=== PATIENT | male | born 1940 | race Caucasian/White ===

== ENCOUNTER 2017-11-14 08:37 | Emergency (ER) | payer MEDICARE, SELFPAY ==
[2017-11-14] VITALS (9 sets, daily range): BP systolic 121–141; BP diastolic 79–93; PULSE 56–63; RESP 14–23; TEMP 36.8; O2SAT 98–100; BMI 24.3
--- NOTE | 2017-11-14 08:48 | DI.RAD.S_ITS ---
PROCEDURE: XR CHEST 1V INDICATIONS: CP TECHNIQUE: One view of the chest was acquired. COMPARISON: [facility], , CHEST 1 VIEW, 03/08/2015, 20:24. FINDINGS: Surgical changes and devices: Median sternotomy with CABG. Lungs and pleura: No pleural effusions or pneumothorax. There appears to be atelectasis in the left lower lobe surrounding the hiatal hernia. Mediastinum: Mediastinal contours appear normal. Heart size is normal. Moderate hiatal hernia. Bones and chest wall: No suspicious bony lesions. Overlying soft tissues appear unremarkable. IMPRESSION: 1. Moderate hiatal hernia. 2. Atelectasis/infiltrate in the left lower lobe medially, surrounding the hiatal hernia. 3. Interim postoperative changes. Dictated by: David Castillo M.D. on 11/14/2017 at 9:05 Approved by: David Castillo M.D. on 11/14/2017 at 9:07
--- NOTE | 2017-11-14 08:50 | ED.CHESTPAIN ---
HPI - Chest Pain General Chief Complaint: Chest Pain Stated Complaint: CHEST PAIN Time Seen by Provider: 11/14/17 08:44 Source: patient and family Mode of arrival: ambulatory Limitations: no limitations History of Present Illness HPI narrative: 77-year-old male with history of coronary artery disease status post CABG, factor 5 Leiden, DVT presents with 1 month of gradually worsening symptoms including chest pain and occasional dizziness. He denies any recent change in his medications. He spends most of the winter in [place]. He denies provocation or palliation of his symptoms and does admit to some radiation to his right chest. He is generally a rather poor historian given his diagnosis of dementia per the . MD complaint: chest pain Onset (ago): month(s) Duration: constant Pain location: substernal Quality: aching Pain radiation: RUE Relieving factors: nothing Exacerbating factors: nothing Treatments prior to arrival chest pain: none Related Data Home Medications Medication Instructions Recorded Confirmed Aspirin Low Dose 81 mg DAILY 11/14/17 11/14/17 Fish Oil 1,000 mg PO 11/14/17 Vitamin C 500 mg DAILY 11/14/17 11/14/17 buspirone 11/14/17 citalopram 11/14/17 metoprolol succinate 12.5 mg PO DAILY 11/14/17 11/14/17 olanzapine 11/14/17 warfarin 11/14/17 Previous Rx's Medication Instructions Recorded nitroglycerin 0.4 mg SL Q5M PRN #30 tab MDD 3 11/14/17 doses Review of Systems Review of Systems All systems reviewed & are unremarkable except as noted in HPI and below Constitutional Denies chills, Denies fever(s), Denies lethargy and Denies weakness Comments: Dizziness Eyes Denies change in vision, Denies eye discharge, Denies irritation and Denies loss of vision ENT Ears, Nose, Mouth, and Throat: Denies change in voice, Denies neck pain and Denies sore throat Cardiovascular Reports chest pain, Denies irregular heart rhythm, Reports lightheadedness, Denies palpitations, Denies dyspnea, Denies dyspnea on exertion and Denies orthopnea Respiratory Denies cough, Denies dyspnea, Denies dyspnea on exertion and Denies wheezing Gastrointestinal Gastrointestinal: Denies abdominal pain, Denies change in bowel habits, Denies diarrhea, Denies nausea and Denies vomiting Genitourinary Denies hematuria, Denies flank pain, Denies urinary incontinence and Denies urinary urgency Musculoskeletal Denies neck pain Integumentary/Breasts Denies pruritus, Denies erythema, Denies rash and Denies wounds Neurologic Denies confusion, Denies loss of vision and Denies weakness Psychiatric Denies anxiety, Denies confusion, Denies depression, Denies homicidal ideation and Denies suicidal ideation Endocrine Denies palpitations Hematologic/Lymphatic Denies easy bruising Allergic/Immunologic Denies wheezing [facility] Social History Smoking Status: Current every day smoker Exam Narrative Exam Narrative: Pleasant sleepy confused 77-year-old male in no obvious distress Initial Vital Signs Initial Vital Signs: Vital Signs Temperature 98.2 F 11/14/17 08:45 Pulse Rate 63 11/14/17 08:45 Respiratory Rate 20 11/14/17 08:45 Blood Pressure 124/79 H 11/14/17 08:45 Pulse Oximetry 98 11/14/17 08:45 Const General: cooperative and well developed Nutritional Appearance: well nourished Orientation: alert, awake and confused [facility] Head: normocephalic and atraumatic Ears: external ears normal and TM's normal bilaterally Nose: external nose normal and No nasal discharge Face and sinus: sinuses nontender, face symmetric, no sinus tenderness and No dry mucous membranes Mouth: oral mucosae normal and moist mucous membranes Teeth and gingiva: dentition normal Throat: tonsils normal and uvula midline Eyes General: appearance normal, both eyes and all related structures Eyelids: eyelids normal Conjunctivae: conjunctivae normal Sclera: sclerae normal Pupils: PERRL EOM: EOM intact bilaterally Neck Neck: normal visual inspection, trachea midline, No lymphadenopathy, No midline deformity and No JVD Lymphatic: No lymphedema Chest Chest: normal inspection of the chest Other: CABG scar is clean, dry and intact Resp Effort & Inspection: normal respiratory effort, able to speak in complete sentences, no respiratory distress and no use of accessory muscles Auscultation: clear to auscultation bilaterally, no rales, no rhonchi and no wheezes Cardio Rate: regular rate Rhythm: regular rhythm Heart Sounds: no click, no gallops, no murmurs and no rubs Pulses: normal peripheral pulses GI Inspection: non-distended Palpation: soft, no hepatosplenomegaly, No guarding, No pulsatile mass and No tender Auscultation: normal bowel sounds Back/Spine/Pelvis Back: No CVA tenderness Cervical Spine: cervical ROM normal and No pain with cervical ROM Thoracic/Lumbar Spine: thoracic and lumbar spine normal to inspection Skin General: no rashes or lesions noted, No jaundice and No petechiae Neuro General: alert, oriented x3, gait normal and no focal motor deficits Speech: speech normal Extrem General: full ROM, no clubbing, cyanosis or edema, no pedal edema and no calf tenderness Psych Appearance: well kempt Mental Status: mental status grossly normal Attitude: cooperative Thought Content: normal and suicidality Judgment: judgment good Course Orders Ordered: ED Orders 11/14/17 08:48 XR chest 1V Stat EKG-12 Lead Stat 11/14/17 08:55 Complete Blood Count AUTO DIFF Stat Comprehensive Metabolic Panel Stat Lipase Stat Prothrombin Time INR Stat Troponin with CK Cardiac Panel Stat 11/14/17 09:46 Urine Microscopic Stat 11/14/17 10:26 CT angio chest PE protocol Stat Discontinued Medications Aspirin (Aspirin Chew) 324 mg PO NOW ONE Stop: 11/14/17 08:49 Last Admin: 11/14/17 09:30 Dose: 324 mg Sodium Chloride (Normal Saline 0.9%) 1,000 mls @ 150 mls/hr IV CONT JOHN Last Infusion: 11/14/17 12:30 Dose: 0 mls/hr Admin: 11/14/17 09:31 Dose: 150 mls/hr Reevaluation(s) Reevaluation #1: Patient continues to be asymptomatic in the department Consultations Consultation #1: Called to on-call Cardiology at [facility]. They sure the opinion that this is unlikely to be chest pain of a cardiac etiology and recommend discharge home with follow-up as an outpatient. They make no medication or therapeutic recommendations Vital Signs - 8 hr 11/14/17 08:45 11/14/17 09:57 11/14/17 10:42 Temperature 98.2 F Pulse Rate 63 58 L 58 L Respiratory Rate 20 14 16 Blood Pressure 124/79 H Blood Pressure [Left Arm] 121/88 H 127/93 H Pulse Oximetry 98 99 99 11/14/17 11:00 11/14/17 11:30 11/14/17 12:00 Temperature Pulse Rate 58 L 56 L 62 Respiratory Rate 23 14 23 Blood Pressure Blood Pressure [Left Arm] 126/81 H 132/90 H 130/84 H Pulse Oximetry 100 99 98 11/14/17 12:05 11/14/17 12:41 11/14/17 12:42 Temperature Pulse Rate 60 62 61 Respiratory Rate 18 16 Blood Pressure Blood Pressure [Left Arm] 141/84 H 141/84 H Pulse Oximetry 98 100 100 MDM - Chest Pain Differential Diagnosis Likely stable angina, unstable angina pectoris, atypical chest pain, st elevation myocardial infarction, costochondritis, chest pain, biliary colic and other (PE, pleural effusion, pneumonia, dissection) Medical Records Data Attestation: I reviewed the patient's medical records. Lab Data Attestation: I reviewed the patient's lab results. Result diagrams: 11/14/17 08:55 11/14/17 08:55 Lab Results 11/14/17 11/14/17 11/14/17 Range/Units 08:55 08:55 08:55 WBC 6.4 (4.5-11.0) X10^3/uL RBC 4.31 L (4.5-5.9) X10^6/uL Hgb 14.4 (13.5-17.5) g/dL Hct 41.8 (41-53) % MCV 96.9 (80-100) fL MCH 33.3 (26-34) PG MCHC 34.4 (30-36) % RDW 13.8 (11.6-14.8) % Plt Count 183 (150-400) X10^3/uL Neut % (Auto) 70.7 (50-75) % Lymph % (Auto) 17.8 L (25-40) % [place] % (Auto) 9.2 (3-14) % Eos % (Auto) 1.7 L (2-4) % Baso % (Auto) 0.6 (0-2) % Neut # (Auto) 4500 (3795-2585) /uL PT 24.0 H (10.1-12.7) SECONDS INR 2.2 H (0.9-1.3) Sodium 144 (137-145) mmol/L Potassium 4.3 (3.4-5.1) mmol/L Chloride 110 H (98-107) mmol/L Carbon Dioxide 21 L (22-32) mmol/L BUN 24 H (9-20) mg/dL Creatinine 1.50 H (0.66-1.25) mg/dL Estimated GFR 45.4 L (>60) mL/min BUN/Creatinine Ratio 16.0 (6-22) Glucose 75 L (80-110) mg/dL Calcium 9.2 (8.4-10.2) mg/dL Total Bilirubin 0.8 (0.2-1.3) mg/dL AST 39 (17-59) IU/L ALT 36 (21-72) IU/L Alkaline Phosphatase 78 (38-126) U/L Total Creatine Kinase 225 H (55-170) U/L CK-MB (CK-2) 3.57 H (<2.37) ng/mL CK-MB (CK-2) Rel Index 1.6 (1.5-5.0) % Troponin I < 0.012 (0.01-0.034) ng/mL Total Protein 7.0 (6.3-8.2) g/dL Albumin 3.9 (3.5-5.0) g/dL Globulin 3.1 (1.7-4.1) g/dL Albumin/Globulin Ratio 1.3 (1.0-2.8) Lipase 232 (23-300) U/L Urine RBC (0-5/HPF) Urine WBC (0-5/HPF) Urine Bacteria (None) Ur Culture Indicated? Micro UA Comment 11/14/17 Range/Units 09:46 WBC (4.5-11.0) X10^3/uL RBC (4.5-5.9) X10^6/uL Hgb (13.5-17.5) g/dL Hct (41-53) % MCV (80-100) fL MCH (26-34) PG MCHC (30-36) % RDW (11.6-14.8) % Plt Count (150-400) X10^3/uL Neut % (Auto) (50-75) % Lymph % (Auto) (25-40) % [place] % (Auto) (3-14) % Eos % (Auto) (2-4) % Baso % (Auto) (0-2) % Neut # (Auto) (2472-7468) /uL PT (10.1-12.7) SECONDS INR (0.9-1.3) Sodium (137-145) mmol/L Potassium (3.4-5.1) mmol/L Chloride (98-107) mmol/L Carbon Dioxide (22-32) mmol/L BUN (9-20) mg/dL Creatinine (0.66-1.25) mg/dL Estimated GFR (>60) mL/min BUN/Creatinine Ratio (6-22) Glucose (80-110) mg/dL Calcium (8.4-10.2) mg/dL Total Bilirubin (0.2-1.3) mg/dL AST (17-59) IU/L ALT (21-72) IU/L Alkaline Phosphatase (38-126) U/L Total Creatine Kinase (55-170) U/L CK-MB (CK-2) (<2.37) ng/mL CK-MB (CK-2) Rel Index (1.5-5.0) % Troponin I (0.01-0.034) ng/mL Total Protein (6.3-8.2) g/dL Albumin (3.5-5.0) g/dL Globulin (1.7-4.1) g/dL Albumin/Globulin Ratio (1.0-2.8) Lipase (23-300) U/L Urine RBC 1-5/hpf (0-5/HPF) Urine WBC None seen (0-5/HPF) Urine Bacteria None seen (None) Ur Culture Indicated? Cult not indicated Micro UA Comment Not Reportable Discharge Plan Departure Patient Disposition: Home, Self-Care Clinical Impression: Atypical chest pain Discharge Date/Time: 11/14/17 12:54 Interventions: ED Discharge Assessment Last Done: 11/14/17 12:24 Instructions: DI for Atypical Chest Pain Activity Restrictions/Additional Instructions: *You have been diagnosed with [ noncardiac chest pain ] *What to do: * continue to Take medications as directed *Follow up with your lpc at [place] in 2-3 days, call for appointment *Return to ER if you should have any new, worsening or concerning symptoms Prescriptions: New nitroglycerin 0.4 mg tablet, sublingual 0.4 mg SL Q5M MDD 3 doses PRN (Reason: chest pain) Qty: 30 RF: 0 No Action olanzapine 10 mg tablet RF: 0 citalopram 20 mg tablet RF: 0 buspirone 10 mg tablet RF: 0 warfarin 5 mg tablet RF: 0 Aspirin Low Dose 81 mg DAILY RF: 0 metoprolol succinate 12.5 mg PO DAILY RF: 0 Fish Oil 1,000 mg PO RF: 0 Vitamin C 500 mg DAILY RF: 0
[2017-11-14 09:07] LABS: Add Manual Diff / Slide Review NO; Basophils Percent Auto 0.6 % (0-2); Eosinophils Percent Auto 1.7 % (2-4); Hematocrit 41.8 % (41-53); Hemoglobin 14.4 g/dL (13.5-17.5); Lymphocytes Percent Auto 17.8 % (25-40); Mean Corpuscular HGB Conc 34.4 % (30-36); Mean Corpuscular Hemoglobin 33.3 PG (26-34); Mean Corpuscular Volume 96.9 fL (80-100); Monocytes Percent Auto 9.2 % (3-14); Neutrophils Absolute Auto 4500 /uL (3000-5900); Neutrophils Percent Auto 70.7 % (50-75); Platelet Count 183 X10^3/uL (150-400); Red Blood Cell Count 4.31 X10^6/uL (4.5-5.9); Red Cell Distribution Width 13.8 % (11.6-14.8); White Blood Cell Count 6.4 X10^3/uL (4.5-11.0)
[2017-11-14 09:13] LABS: INR 2.2 (0.9-1.3)
[2017-11-14 09:18] LABS: Alanine Aminotransferase 36 IU/L (21-72); Albumin 3.9 g/dL (3.5-5.0); Albumin Globulin Ratio 1.3 (1.0-2.8); Alkaline Phosphatase 78 U/L (38-126); Aspartate Aminotransferase 39 IU/L (17-59); Bilirubin Total 0.8 mg/dL (0.2-1.3); Blood Urea Nitrogen 24 mg/dL (9-20); Calcium 9.2 mg/dL (8.4-10.2); Carbon Dioxide 21 mmol/L (22-32); Chloride 110 mmol/L (98-107); Creatine Kinase 225 U/L (55-170); Estimated Glomerular Filt Rate 45.4 mL/min (>60); Globulin 3.1 g/dL (1.7-4.1); Glucose 75 mg/dL (80-110); HEMOLYSIS 28 (0-50); Lipase 232 U/L (23-300); Potassium 4.3 mmol/L (3.4-5.1); Sodium 144 mmol/L (137-145)
[2017-11-14 09:29] LABS: Troponin I < 0.012 ng/mL (0.01-0.034)
[2017-11-14] MEDS: ASPIRIN 81 MG TAB 324 MG PO (09:30)
[2017-11-14] MEDS: SODIUM CHLORIDE 0.9% 1,000 ML 150 ML IV (09:31)
[2017-11-14 09:33] LABS: CKMB % Relative Index 1.6 % (1.5-5.0); Creatine Kinase MB 3.57 ng/mL (<2.37)
--- NOTE | 2017-11-14 10:26 | DI.CT.S_ITS ---
PROCEDURE: CT ANGIO CHEST PE PROTOCOL INDICATIONS: CP, SOB, hypoxia, hx DVT TECHNIQUE: After the administration of intravenous contrast, 2 mm thick sections acquired from the pulmonary apices to the posterior costophrenic angles. 3-dimensional maximum intensity projection (MIP) coronal and sagittal reformats were then acquired through the thorax. For radiation dose reduction, the following was used: automated exposure control, adjustment of mA and/or kV according to patient size. COMPARISON: [facility], CT, CT CHEST WO CON, 04/10/2015, 15:53. FINDINGS: Image quality: Excellent. Pulmonary arteries: Pulmonary arteries are normal in size, and demonstrate no intraluminal filling defects to suggest central pulmonary embolism. Lungs and pleura: Scattered scarring/atelectasis. There is a left upper lobe posterior calcified pleural plaque on image 12 series 5. No acute consolidation. No pleural effusions or pneumothorax. Central and peripheral airways are patent. Mediastinum: Heart size is enlarged, without pericardial effusion. Coronary artery calcifications. No mediastinal or hilar adenopathy. Thoracic aorta is normal in caliber and enhancement. Bones and chest wall: No suspicious bony lesions. Ribs and thoracic spine appear intact throughout. Thyroid gland negative. No axillary or supraclavicular adenopathy. Abdomen: Large hiatal hernia is seen. They're nonspecific partially visualized bilateral renal cysts and areas of possible cortical nephrocalcinosis IMPRESSION: No evidence of pulmonary embolism. No acute consolidation. Scattered scarring/atelectasis. 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 This is unchanged since 04/10/15 Large hiatal hernia, as before. Cardiomegaly and coronary artery disease. Dictated by: Masood Chen M.D. on 11/14/2017 at 10:46 Approved by: Masood Chen M.D. on 11/14/2017 at 10:56
[2017-11-14 11:28] LABS: Bacteria Urine None Seen; WBC Urine None Seen (0-5/HPF)
[2017-11-14 11:36] LABS: Culture Indicated Urine Cult Not Indicated; RBC Urine 1-5/HPF (0-5/HPF)
== END 2017-11-14 12:54 | disposition home or self-care (01) ==
PROVIDERS: Emergency Provider Emergency Medicine; Family Provider Internal Medicine; PCP Internal Medicine
DX: R07.89 Other chest pain (principal)
CPT/HCPCS: 36591; 71045; 71275; 80053; 81003; 81015; 82550; 82553; 83690; 84484; 85025; 85610; 93005; 93041; 96360; 96361; 99284; 99285; Q9967

== ENCOUNTER 2017-12-02 20:57 | Observation (INO) | payer MEDICARE, SELFPAY ==
[2017-12-02 21:00] VITALS: BP 93/67; PULSE 67; RESP 14; TEMP 36.5; O2SAT 95
--- NOTE | 2017-12-02 21:10 | DI.RAD.S_ITS ---
PROCEDURE: XR CHEST 1V INDICATIONS: syncope TECHNIQUE: One view of the chest was acquired. COMPARISON: [facility], CR, XR CHEST 1V, 11/14/2017, 8:56. FINDINGS: Surgical changes and devices: Median sternotomy Lungs and pleura: No pleural effusions or pneumothorax. Lungs are clear except for compressive atelectasis left lower lobe around the hernia.. Mediastinum: Mediastinal contours appear normal. Heart size is normal. Moderate hiatal hernia again noted. Bones and chest wall: No suspicious bony lesions. Overlying soft tissues appear unremarkable. IMPRESSION: 1. No acute cardiopulmonary abnormality. 2. Moderate hiatal hernia. 3. Stable compressive atelectasis left lower lobe. Dictated by: David Castillo M.D. on 12/03/2017 at 7:41 Approved by: David Castillo M.D. on 12/03/2017 at 7:43
--- NOTE | 2017-12-02 21:16 | ED_ITS ---
HPI - Syncope General Chief Complaint: GI Bleed Stated Complaint: Abd pain/Syncope Time Seen by Provider: 12/02/17 21:07 Source: EMS Mode of arrival: EMS Limitations: altered mental status History of Present Illness HPI narrative: The patient was transported here by [facility]. Prior to arrival, he had apparently developed abdominal pain for 2 hr. The family had decided to have him evaluated. After he walked to the car he collapsed in the back of the car. There was no fall, there is no concern for head injury. According to the paramedics, he was unconscious for about 3 min. Upon their initial evaluation is hypotensive, he has responded IV fluids, but blood pressure is still 90 systolic upon arrival. The patient has a degree of dementia, he is a poor historian. He has no complaints of headache, chest pain , abdominal pain and he has had no diarrhea. He has had no melena. He is anticoagulated with Coumadin for factor 5 Leiden deficiency and DVT. He also has a history of CAD. Related Data Home Medications Medication Instructions Recorded Confirmed buspirone 10 mg PO DAILY 11/14/17 12/03/17 citalopram 20 mg PO DAILY 11/14/17 12/03/17 olanzapine 11/14/17 warfarin 5 mg PO DAILY 11/14/17 12/03/17 ascorbic acid (vitamin C) [Vitamin 500 mg PO DAILY 12/03/17 12/03/17 C] aspirin 81 mg PO DAILY 12/03/17 12/03/17 metoprolol succinate 12.5 mg PO DAILY 12/03/17 12/03/17 omega 3-ywj-rjt-fish oil [Fish Oil] 1,000 mg PO DAILY 12/03/17 12/03/17 Previous Rx's Medication Instructions Recorded nitroglycerin 0.4 mg SL Q5M PRN #30 tab MDD 3 11/14/17 doses Allergies Allergy/AdvReac Type Severity Reaction Status Date / Time haloperidol AdvReac Agitated Verified 12/02/17 22:03 Review of Systems Review of Systems ROS is limited, information is primarily collected from the patient's . Constitutional Denies fatigue, Denies fever(s), Denies frequent falls, Denies poor appetite and Denies weakness Cardiovascular Denies chest pain and Denies dyspnea Respiratory Denies cough and Denies dyspnea Gastrointestinal Gastrointestinal: Reports as per HPI Neurologic Reports confusion (He has dementia), Denies frequent falls and Denies weakness Comments: ROS is otherwise unobtainable due to the patient's medical condition. Psychiatric Reports confusion (He has dementia) Endocrine Denies fatigue PFSH Medical History CAD (coronary artery disease) of artery bypass graft (Acute) DVT (deep venous thrombosis) (Acute) Dementia (Acute) Factor V Leiden (Acute) Surgical History Hx of CABG (Acute) Social History household members: spouse Smoking Status: Current every day smoker Exam Initial Vital Signs Initial Vital Signs: Vital Signs Temperature 97.7 F 12/02/17 21:00 Pulse Rate 67 12/02/17 21:00 Respiratory Rate 14 12/02/17 21:00 Blood Pressure 93/67 12/02/17 21:00 Pulse Oximetry 95 12/02/17 21:00 Const General: cooperative, comfortable, ill appearing and other (He does not respond to most questions.) Orientation: alert, awake and confused HENMO Head: normal to inspection, normocephalic and atraumatic Ears: external ears normal and TM's normal bilaterally Nose: external nose normal and No nasal discharge Face and sinus: sinuses nontender, face symmetric, no sinus tenderness and No dry mucous membranes Mouth: oral mucosae normal and moist mucous membranes Teeth and gingiva: dentition normal Throat: tonsils normal and uvula midline Eyes General: appearance normal, both eyes and all related structures Eyelids: eyelids normal Conjunctivae: conjunctivae normal Sclera: sclerae normal Pupils: PERRL EOM: EOM intact bilaterally Neck Neck: normal visual inspection, trachea midline, No lymphadenopathy, No midline deformity and No JVD Chest Chest: normal inspection of the chest Resp Effort & Inspection: normal respiratory effort, no respiratory distress and no use of accessory muscles Auscultation: clear to auscultation bilaterally, no rales, no rhonchi and no wheezes Cardio Rate: regular rate Rhythm: regular rhythm Heart Sounds: S1 normal, S2 normal, no click, no gallops, no murmurs and no rubs Pulses: normal peripheral pulses GI Inspection: non-distended Palpation: soft, no hepatosplenomegaly, No guarding, No pulsatile mass and No tender Auscultation: normal bowel sounds Rectal Exam: visual inspection normal, normal sphincter tone, prostate normal and heme positive stool Back/Spine/Pelvis Back: No CVA tenderness Skin General: no rashes or lesions noted Neuro General: alert Motor: muscle tone normal throughout Extrem General: normal to inspection, no pedal edema and no calf tenderness Course Hospital Course: The patient's blood pressure recovered to 1O8 systolic with IV hydration. His H /H dropped from 14/41 earlier this month to 12/37. His INR is 2.7. He was given Protonix and vitamin K. he does not have a substantial bleed, but he does have a slow GI bleed. He was admitted to Dr. Nettles, hospitalist. IV fluids will be continued. Labs will be evaluated tomorrow morning. Orders Ordered: ED Orders 12/02/17 21:10 XR chest 1V Stat EKG-12 Lead Stat 12/02/17 21:30 Complete Blood Count AUTO DIFF Stat Comprehensive Metabolic Panel Stat Ethanol (ETOH) Stat Lipase Stat Magnesium Stat Prothrombin Time INR Stat Troponin with CK Cardiac Panel Stat Type and Screen Stat 12/02/17 22:30 Urinalysis and Microscopic Stat 12/02/17 23:47 Complete Blood Count AUTO DIFF DAILY 12/02/17 23:49 Prothrombin Time INR DAILY Sodium Chloride (Normal Saline 0.9%) 1,000 mls @ 150 mls/hr IV CONT JOHN Last Infusion: 12/03/17 00:42 Dose: 150 mls/hr Admin: 12/02/17 22:48 Dose: 150 mls/hr Ondansetron HCl (Zofran) 4 mg IV Q4HR PRN PRN Reason: Nausea And Vomiting Pantoprazole Sodium (Protonix) 40 mg IV DAILY JOHN Discontinued Medications Sodium Chloride (Normal Saline 0.9%) 1,000 mls @ 1,000 mls/hr IV BOLUS ONE Stop: 12/02/17 22:09 Last Infusion: 12/02/17 22:49 Dose: 0 mls/hr Admin: 12/02/17 21:40 Dose: 1,000 mls/hr Phytonadione 10 mg/ Dextrose 51 mls @ 102 mls/hr IV NOW ONE Stop: 12/02/17 23:43 Last Infusion: 12/03/17 00:43 Dose: 102 mls/hr Admin: 12/03/17 00:23 Dose: 102 mls/hr Pantoprazole Sodium (Protonix) 40 mg IV NOW ONE Stop: 12/02/17 23:43 Last Admin: 12/03/17 00:01 Dose: 40 mg Vital Signs - 8 hr 12/02/17 21:00 12/02/17 21:17 12/02/17 21:54 Temperature 97.7 F Pulse Rate 67 58 L 62 Respiratory Rate 14 25 H 23 Blood Pressure 93/67 Blood Pressure [Left Arm] 93/67 85/64 L Pulse Oximetry 95 100 97 12/02/17 23:14 12/02/17 23:15 12/02/17 23:18 Temperature Pulse Rate 75 73 67 Respiratory Rate 23 Blood Pressure Blood Pressure [Left Arm] 117/82 H 107/78 108/77 Pulse Oximetry 99 12/03/17 00:44 12/03/17 00:45 Temperature 97.5 F L Pulse Rate 67 66 Respiratory Rate 23 20 Blood Pressure 100/79 116/71 Blood Pressure [Left Arm] Pulse Oximetry 97 98 MDM - Syncope Lab Data Result diagrams: 12/02/17 21:30 12/02/17 21:30 Lab Results 12/02/17 12/02/17 12/02/17 Range/Units 21:30 21:30 21:30 WBC 4.9 (4.5-11.0) X10^3/uL RBC 3.79 L (4.5-5.9) X10^6/uL Hgb 12.7 L (13.5-17.5) g/dL Hct 37.4 L (41-53) % MCV 98.6 (80-100) fL MCH 33.5 (26-34) PG MCHC 34.0 (30-36) % RDW 13.3 (11.6-14.8) % Plt Count 162 (150-400) X10^3/uL Neut % (Auto) 78.0 H (50-75) % Lymph % (Auto) 15.7 L (25-40) % [place] % (Auto) 4.7 (3-14) % Eos % (Auto) 1.1 L (2-4) % Baso % (Auto) 0.5 (0-2) % Neut # (Auto) 3800 (6664-2195) /uL PT 29.5 H (10.1-12.7) SECONDS INR 2.7 H (0.9-1.3) Sodium 138 (137-145) mmol/L Potassium 4.6 (3.4-5.1) mmol/L Chloride 110 H (98-107) mmol/L Carbon Dioxide 17 L (22-32) mmol/L BUN 25 H (9-20) mg/dL Creatinine 1.50 H (0.66-1.25) mg/dL Estimated GFR 45.4 L (>60) mL/min BUN/Creatinine Ratio 16.7 (6-22) Glucose 95 (80-110) mg/dL Calcium 8.2 L (8.4-10.2) mg/dL Magnesium (1.6-2.3) mg/dL Total Bilirubin 0.4 (0.2-1.3) mg/dL AST 29 (17-59) IU/L ALT 30 (21-72) IU/L Alkaline Phosphatase 58 (38-126) U/L Total Creatine Kinase 152 (55-170) U/L CK-MB (CK-2) 2.57 H (<2.37) ng/mL CK-MB (CK-2) Rel Index 1.7 (1.5-5.0) % Troponin I < 0.012 (0.01-0.034) ng/mL Total Protein 5.6 L (6.3-8.2) g/dL Albumin 3.0 L (3.5-5.0) g/dL Globulin 2.6 (1.7-4.1) g/dL Albumin/Globulin Ratio 1.2 (1.0-2.8) Lipase 117 (23-300) U/L Urine Color Urine Appearance Urine pH (4.5-8.0) Ur Specific [place] (1.000-1.035) Urine Protein (Negative) Urine Glucose (UA) (Normal) g/dL Urine Ketones (NEGATIVE) Urine Occult Blood (Negative) Urine Nitrate (Negative) Urine Bilirubin (NEGATIVE) Urine Urobilinogen (0.2) E.U./dL Ur Leukocyte Esterase (NEGATIVE) Urine RBC (0-5/HPF) Urine WBC (0-5/HPF) Ur Squamous Epith Cells Urine Bacteria (None) Ur Culture Indicated? Micro UA Comment Ethyl Alcohol mg/dL Blood Type Antibody Screen 12/02/17 12/02/17 12/02/17 Range/Units 21:30 21:30 22:30 WBC (4.5-11.0) X10^3/uL RBC (4.5-5.9) X10^6/uL Hgb (13.5-17.5) g/dL Hct (41-53) % MCV (80-100) fL MCH (26-34) PG MCHC (30-36) % RDW (11.6-14.8) % Plt Count (150-400) X10^3/uL Neut % (Auto) (50-75) % Lymph % (Auto) (25-40) % [place] % (Auto) (3-14) % Eos % (Auto) (2-4) % Baso % (Auto) (0-2) % Neut # (Auto) (5692-0552) /uL PT (10.1-12.7) SECONDS INR (0.9-1.3) Sodium (137-145) mmol/L Potassium (3.4-5.1) mmol/L Chloride (98-107) mmol/L Carbon Dioxide (22-32) mmol/L BUN (9-20) mg/dL Creatinine (0.66-1.25) mg/dL Estimated GFR (>60) mL/min BUN/Creatinine Ratio (6-22) Glucose (80-110) mg/dL Calcium (8.4-10.2) mg/dL Magnesium 2.0 (1.6-2.3) mg/dL Total Bilirubin (0.2-1.3) mg/dL AST (17-59) IU/L ALT (21-72) IU/L Alkaline Phosphatase (38-126) U/L Total Creatine Kinase (55-170) U/L CK-MB (CK-2) (<2.37) ng/mL CK-MB (CK-2) Rel Index (1.5-5.0) % Troponin I (0.01-0.034) ng/mL Total Protein (6.3-8.2) g/dL Albumin (3.5-5.0) g/dL Globulin (1.7-4.1) g/dL Albumin/Globulin Ratio (1.0-2.8) Lipase (23-300) U/L Urine Color Yellow Urine Appearance Clear Urine pH 5.0 (4.5-8.0) Ur Specific [place] 1.015 (1.000-1.035) Urine Protein Negative (Negative) Urine Glucose (UA) Negative (Normal) g/dL Urine Ketones Negative (NEGATIVE) Urine Occult Blood Trace-intact (Negative) Urine Nitrate Negative (Negative) Urine Bilirubin Negative (NEGATIVE) Urine Urobilinogen 0.2 (0.2) E.U./dL Ur Leukocyte Esterase Negative (NEGATIVE) Urine RBC None seen (0-5/HPF) Urine WBC None seen (0-5/HPF) Ur Squamous Epith Cells 0-1 /hpf Urine Bacteria None seen (None) Ur Culture Indicated? Cult not indicated Micro UA Comment Not Reportable Ethyl Alcohol 46 mg/dL Blood Type A Positive Antibody Screen Negative Imaging Data Chest x-ray: My impression: Prior CABG. No acute findings otherwise noted. ECG Data Attestation: I personally reviewed and interpreted this ECG as follows: Discharge Plan Departure Patient Disposition: Admitted as Observation Clinical Impression: Acute GI bleeding Discharge Date/Time: 12/03/17 00:46 Interventions: ED Discharge Assessment Last Done: 12/03/17 00:44 Admit Date/Time: 12/03/17 00:15 Admit Provider: Jaret Nettles
[2017-12-02 21:17] VITALS: BP 93/67; PULSE 58; RESP 25; O2SAT 100
[2017-12-02 21:39] LABS: Add Manual Diff / Slide Review NO; Basophils Percent Auto 0.5 % (0-2); Eosinophils Percent Auto 1.1 % (2-4); Hematocrit 37.4 % (41-53); Hemoglobin 12.7 g/dL (13.5-17.5); Lymphocytes Percent Auto 15.7 % (25-40); Mean Corpuscular Hemoglobin 33.5 PG (26-34); Mean Corpuscular Volume 98.6 fL (80-100); Monocytes Percent Auto 4.7 % (3-14); Neutrophils Absolute Auto 3800 /uL (3000-5900); Platelet Count 162 X10^3/uL (150-400); Red Blood Cell Count 3.79 X10^6/uL (4.5-5.9); Red Cell Distribution Width 13.3 % (11.6-14.8); White Blood Cell Count 4.9 X10^3/uL (4.5-11.0)
[2017-12-02] MEDS: SODIUM CHLORIDE 0.9% 1,000 ML 1000 ML IV (21:40)
[2017-12-02 21:46] LABS: INR 2.7 (0.9-1.3); Prothrombin Time 29.5 SECONDS (10.1-12.7)
[2017-12-02 21:51] LABS: Alanine Aminotransferase 30 IU/L (21-72); Albumin Globulin Ratio 1.2 (1.0-2.8); Alkaline Phosphatase 58 U/L (38-126); Aspartate Aminotransferase 29 IU/L (17-59); BUN Creatinine Ratio 16.7 (6-22); Bilirubin Total 0.4 mg/dL (0.2-1.3); Blood Urea Nitrogen 25 mg/dL (9-20); Calcium 8.2 mg/dL (8.4-10.2); Carbon Dioxide 17 mmol/L (22-32); Chloride 110 mmol/L (98-107); Creatine Kinase 152 U/L (55-170); Estimated Glomerular Filt Rate 45.4 mL/min (>60); Globulin 2.6 g/dL (1.7-4.1); Glucose 95 mg/dL (80-110); HEMOLYSIS 21 (0-50); Lipase 117 U/L (23-300); Potassium 4.6 mmol/L (3.4-5.1); Sodium 138 mmol/L (137-145); Total Protein 5.6 g/dL (6.3-8.2)
[2017-12-02 21:54] VITALS: BP 85/64; PULSE 62; RESP 23; O2SAT 97
[2017-12-02 21:55] LABS: Ethanol (ETOH) 46 mg/dL
[2017-12-02 22:03] LABS: Troponin I < 0.012 ng/mL (0.01-0.034)
[2017-12-02 22:06] LABS: CKMB % Relative Index 1.7 % (1.5-5.0); Creatine Kinase MB 2.57 ng/mL (<2.37)
[2017-12-02] MEDS: SODIUM CHLORIDE 0.9% 1,000 ML 150 ML IV (22:48)
[2017-12-02 23:02] LABS: Bacteria Urine None Seen; RBC Urine None Seen (0-5/HPF); WBC Urine None Seen (0-5/HPF)
[2017-12-02 23:03] LABS: Appearance Urine UA CLEAR; Bilirubin Urine UA NEGATIVE (NEGATIVE); Color Urine UA YELLOW; Glucose Urine UA NEGATIVE (Normal); Ketones Urine UA NEGATIVE (NEGATIVE); Leukocyte Esterase Urine UA NEGATIVE (NEGATIVE); Nitrite Urine UA Negative (Negative); Occult Blood Urine UA TRACE-INTACT (Negative); Protein Urine UA NEGATIVE (Negative); Specific Gravity Urine UA 1.015 (1.000-1.035); Urobilinogen Urine UA 0.2 E.U./dL (0.2)
[2017-12-02 23:13] LABS: Culture Indicated Urine Cult Not Indicated; Squamous Epithelial Cell Urine 0-1 /HPF
[2017-12-02 23:14] VITALS: BP 105/78; BP 117/82; PULSE 66; PULSE 75
[2017-12-02 23:15] VITALS: BP 107/78; PULSE 73
--- NOTE | 2017-12-02 23:15 | PC.NURSE ---
pt ambulated around nurses station and denied feeling dizzy
[2017-12-02 23:18] VITALS: BP 108/77; PULSE 67; RESP 23; O2SAT 99
[2017-12-03] MEDS: PANTOPRAZOLE 40 MG VIAL IV (00:01)
[2017-12-03] MEDS: PHYTONADIONE (VIT K1) 10 MG in DEXTROSE 5 % IN WATER 50 ML 102 ML IV (00:23)
[2017-12-03 00:44] VITALS: BP 100/79; PULSE 67; RESP 23; O2SAT 97
[2017-12-03 00:45] VITALS: BP 116/71; PULSE 66; RESP 20; TEMP 36.4; O2SAT 98
[2017-12-03 01:00] VITALS: BMI 27.6
--- NOTE | 2017-12-03 02:48 | PC.NURSE ---
Addendum entered by Parvin Ferrara R.N. 12/03/17 06:43: Pt was up all night and was trying to get out of bed. pt kept saying i gotta go, reoriented pt and explained the situation. NPO. pt had 2 small BMs w/ small tinge of blood. no blood clots visible. Original Note: Pt is A&O to self. He is confused. admission assessments and hx was difficult to obtain. Pt arrived at 0045 from ED in via wheelchair. vit K infusing. NS @150cc. tele. bed alarm on. call light in reach.
[2017-12-03] MEDS: SODIUM CHLORIDE 0.9% 1,000 ML 150 ML IV (04:49)
[2017-12-03 05:13] VITALS: BP 118/73; PULSE 79; RESP 20; TEMP 36.6; O2SAT 97
[2017-12-03 06:05] LABS: Add Manual Diff / Slide Review NO; Basophils Percent Auto 0.1 % (0-2); Hematocrit 39.1 % (41-53); Hemoglobin 13.2 g/dL (13.5-17.5); Lymphocytes Percent Auto 5.8 % (25-40); Mean Corpuscular HGB Conc 33.8 % (30-36); Mean Corpuscular Hemoglobin 33.5 PG (26-34); Monocytes Percent Auto 5.3 % (3-14); Neutrophils Absolute Auto 7200 /uL (3000-5900); Neutrophils Percent Auto 88.8 % (50-75); Platelet Count 144 X10^3/uL (150-400); Red Blood Cell Count 3.95 X10^6/uL (4.5-5.9); Red Cell Distribution Width 13.4 % (11.6-14.8); White Blood Cell Count 8.1 X10^3/uL (4.5-11.0)
[2017-12-03 06:21] LABS: INR 1.6 (0.9-1.3); Prothrombin Time 17.6 SECONDS (10.1-12.7)
--- NOTE | 2017-12-03 09:28 | PM.HP.1 ---
History of Present Illness Date Patient Seen: 12/03/17 Time Patient Seen: 09:54 Chief complaint: Acute GI Bleed Narrative: Patient is a 77-year-old male with history of alcohol dependence, severe dementia, warfarin anticoagulation for DVT, coronary artery disease brought to emergency department due to abdominal pain and syncope. Patient is unable to provide history himself due to dementia. His states that he was at the dinner table in developed severe abdominal pain. He got up and went to bed and was apparently writhing in pain. She was trying to get him into the car to take him to the emergency department and he passed out. She estimates he was out for about 3 min. He did not have nausea or vomiting or diarrhea. She reports he has at least 6-7 large beers a day. On ER exam he was noted to have brown heme-positive stool but no mariah blood in the stool. No history of peptic ulcer disease. Patient History Medical History Dementia (Acute) CAD (coronary artery disease) (Acute) Alcohol dependence (Acute) Tobacco dependence due to cigarettes (Acute) DVT (deep venous thrombosis) (Acute) Factor V Leiden (Acute) Surgical History Hx of CABG (Acute) Family & Social History Social History: household members spouse Safety & Behavioral: Feels Safe in Current Yes Environment Been Physically Hurt or No Threatened By a Person Suicidal Ideation Description None Suicide Plan Description No Plan Tobacco & Substance use: Smoking Status Current every day smoker alcohol intake frequency 0-2 drinks per day Substance Use Type does not use Meds Home Medications Medication Instructions Recorded Confirmed Type buspirone 10 mg PO DAILY 11/14/17 12/03/17 History citalopram 20 mg PO DAILY 11/14/17 12/03/17 History nitroglycerin 0.4 mg SL Q5M PRN #30 tab MDD 3 11/14/17 12/03/17 Rx doses olanzapine 11/14/17 History warfarin 5 mg PO DAILY 11/14/17 12/03/17 History ascorbic acid (vitamin C) [Vitamin 500 mg PO DAILY 12/03/17 12/03/17 History C] aspirin 81 mg PO DAILY 12/03/17 12/03/17 History metoprolol succinate 12.5 mg PO DAILY 12/03/17 12/03/17 History omega 8-vys-roz-fish oil [Fish Oil] 1,000 mg PO DAILY 12/03/17 12/03/17 History pantoprazole 40 mg PO DAILY #30 tab 12/03/17 Rx Allergies Allergy/AdvReac Type Severity Reaction Status Date / Time haloperidol AdvReac Agitated Verified 12/02/17 22:03 Review of Systems Review of Systems All systems reviewed & are unremarkable except as noted in HPI and below Exam Vital Signs (past 8 hours): - 12/03/17 05:13 Temperature 97.8 F Pulse Rate 79 Respiratory Rate 20 Blood Pressure 118/73 Pulse Oximetry 97 Oxygen Delivery Method Room Air Narrative Exam Narrative: GENERAL: This is an obviously very confused male who is standing and trying to leave the room. HEAD: Atraumatic. Normocephalic. EYES: Pupils equal, round and reactive. Extraocular motions intact. No scleral icterus. No injection or drainage. NECK: Trachea midline. No JVD or lymphadenopathy. CARDIOVASCULAR: Regular rate and rhythm without murmurs, gallops, or rubs. RESPIRATORY: Clear to auscultation bilaterally. GASTROINTESTINAL: Abdomen nondistended, soft, mild epigastric tenderness, no guarding, no abdominal mass EXTREMITIES: No edema. NEUROLOGICAL: Alert, slightly agitated, oriented to person only, nonfocal SKIN: warm, dry, no rash Objective Labs Result Diagrams: 12/03/17 05:16 12/02/17 21:30 Labs: EKG: Sinus rhythm and incomplete right bundle branch block, no acute changes Laboratory Results - last 24 hr 12/02/17 12/02/17 12/02/17 21:30 21:30 21:30 WBC 4.9 RBC 3.79 L Hgb 12.7 L Hct 37.4 L MCV 98.6 MCH 33.5 MCHC 34.0 RDW 13.3 Plt Count 162 Neut % (Auto) 78.0 H Lymph % (Auto) 15.7 L [place] % (Auto) 4.7 Eos % (Auto) 1.1 L Baso % (Auto) 0.5 Neut # (Auto) 3800 PT 29.5 H INR 2.7 H Sodium 138 Potassium 4.6 Chloride 110 H Carbon Dioxide 17 L BUN 25 H Creatinine 1.50 H Estimated GFR 45.4 L BUN/Creatinine Ratio 16.7 Glucose 95 Calcium 8.2 L Magnesium Total Bilirubin 0.4 AST 29 ALT 30 Alkaline Phosphatase 58 Total Creatine Kinase 152 CK-MB (CK-2) 2.57 H CK-MB (CK-2) Rel Index 1.7 Troponin I < 0.012 Total Protein 5.6 L Albumin 3.0 L Globulin 2.6 Albumin/Globulin Ratio 1.2 Lipase 117 Urine Color Urine Appearance Urine pH Ur Specific [place] Urine Protein Urine Glucose (UA) Urine Ketones Urine Occult Blood Urine Nitrate Urine Bilirubin Urine Urobilinogen Ur Leukocyte Esterase Urine RBC Urine WBC Ur Squamous Epith Cells Urine Bacteria Ur Culture Indicated? Micro UA Comment Ethyl Alcohol Blood Type Antibody Screen 12/02/17 12/02/17 12/02/17 21:30 21:30 22:30 WBC RBC Hgb Hct MCV MCH MCHC RDW Plt Count Neut % (Auto) Lymph % (Auto) [place] % (Auto) Eos % (Auto) Baso % (Auto) Neut # (Auto) PT INR Sodium Potassium Chloride Carbon Dioxide BUN Creatinine Estimated GFR BUN/Creatinine Ratio Glucose Calcium Magnesium 2.0 Total Bilirubin AST ALT Alkaline Phosphatase Total Creatine Kinase CK-MB (CK-2) CK-MB (CK-2) Rel Index Troponin I Total Protein Albumin Globulin Albumin/Globulin Ratio Lipase Urine Color Yellow Urine Appearance Clear Urine pH 5.0 Ur Specific [place] 1.015 Urine Protein Negative Urine Glucose (UA) Negative Urine Ketones Negative Urine Occult Blood Trace-intact Urine Nitrate Negative Urine Bilirubin Negative Urine Urobilinogen 0.2 Ur Leukocyte Esterase Negative Urine RBC None seen Urine WBC None seen Ur Squamous Epith Cells 0-1 /hpf Urine Bacteria None seen Ur Culture Indicated? Cult not indicated Micro UA Comment Not Reportable Ethyl Alcohol 46 Blood Type A Positive Antibody Screen Negative 12/03/17 12/03/17 05:16 05:16 WBC 8.1 D RBC 3.95 L Hgb 13.2 L Hct 39.1 L MCV 99.0 MCH 33.5 MCHC 33.8 RDW 13.4 Plt Count 144 L Neut % (Auto) 88.8 H Lymph % (Auto) 5.8 L [place] % (Auto) 5.3 Eos % (Auto) 0.0 L Baso % (Auto) 0.1 Neut # (Auto) 7200 H PT 17.6 H D INR 1.6 H Sodium Potassium Chloride Carbon Dioxide BUN Creatinine Estimated GFR BUN/Creatinine Ratio Glucose Calcium Magnesium Total Bilirubin AST ALT Alkaline Phosphatase Total Creatine Kinase CK-MB (CK-2) CK-MB (CK-2) Rel Index Troponin I Total Protein Albumin Globulin Albumin/Globulin Ratio Lipase Urine Color Urine Appearance Urine pH Ur Specific [place] Urine Protein Urine Glucose (UA) Urine Ketones Urine Occult Blood Urine Nitrate Urine Bilirubin Urine Urobilinogen Ur Leukocyte Esterase Urine RBC Urine WBC Ur Squamous Epith Cells Urine Bacteria Ur Culture Indicated? Micro UA Comment Ethyl Alcohol Blood Type Antibody Screen Assessment & Plan Plan: Assessment/Plan Narrative: 1. Acute abdominal pain. Patient has epigastric tenderness suggestive of gastritis or peptic ulcer disease. He has significant risk factors including excess alcohol use, cigarette dependence, daily aspirin and also on warfarin. Currently he is not complaining or appearing in pain. Due to his advanced dementia I am hesitant to put him under sedation for upper endoscopy. His is in agreement to treat him empirically with PPI therapy due to likelihood of gastritis or peptic ulcer disease. He is being discharged on Protonix 40 mg q.d.. He will follow up with Dr. Charly Queen his PCP 2. Vasovagal syncope. He passed out in setting of acute abdominal pain consistent with vasovagal event. His EKG, cardiac enzymes and telemetry are all reassuring. I do not think he needs further workup. 3. History of DVT and factor 5 Leiden. He had a DVT in May 2017 after a long car ride from [facility] [place] to [place]. I am not certain he still needs to remain on warfarin as this was his 1st DVT and was precipitated by relatively prolonged immobility. I suggested patient's talked to PCP regarding continuation of warfarin therapy. At this time he was kept on warfarin. 4. Coronary artery disease, status post CABG in 2014. Clinically stable. Also should consider whether to discontinue daily aspirin to reduce his risk of bleed. 5. Dementia with behavioral disturbance. 6. Alcohol and cigarette dependence. Suggested to spouse to try to have him at least cut down on his alcohol intake. 7. Heme-positive stool without acute blood loss. Daily Protonix started as above for presumed upper GI source. Patient admitted to observation and is stable to discharge home to follow up with PCP in the next week. Quality VTE Deep Vein Thrombosis/Pulmonary Embolism Present on Admission: No
--- NOTE | 2017-12-03 10:31 | PC.NURSE ---
1025 Pt dcd to home with care of spouse. Gave spouse dc information. Pt remains confused. Pt with spouse , escorted out ambulatory
--- NOTE | 2017-12-03 11:03 | CM.DANOTE ---
Discharge assessment: 77 year old male patient admitted to the emergency room for acute GI bleed. Patient alert and oriented, does have some mild dementia according to . Patient has medicare, and was admitted under observation. Plan: Patient is to be discharged home, no changes. is here, and will transport in her vehicle. Inquired with is she needed any services such as home health, and she stated that she did not feel that it is necessary. does care for , due to cognitive issues. Offered her handbook of senior services, should she elect to have some help in the home. Amber Barbosa RN/utility manager.
== END 2017-12-03 10:33 | disposition home or self-care (01) ==
LOC: ED 23:49 → AC 12-03 00:17
PROVIDERS: Admitting Provider Internal Medicine; Emergency Provider Emergency Medicine; Family Provider Internal Medicine; PCP Internal Medicine; Visit Provider Internal Medicine
DX: K92.2 Gastrointestinal hemorrhage, unspecified (principal); F03.90 Unspecified dementia, unspecified severity, without behavioral disturbance, psychotic disturbance, mood disturbance, and anxiety; Z79.01 Long term (current) use of anticoagulants; D68.51 Activated protein C resistance; I25.10 Atherosclerotic heart disease of native coronary artery without angina pectoris; R55 Syncope and collapse; I82.409 Acute embolism and thrombosis of unspecified deep veins of unspecified lower extremity; F17.210 Nicotine dependence, cigarettes, uncomplicated; E86.0 Dehydration; F10.20 Alcohol dependence, uncomplicated
CPT/HCPCS: 36415; 71045; 80053; 80320; 81001; 82550; 82553; 83690; 83735; 84484; 85025; 85610; 86850; 86900; 86901; 93005; 96360; 96361; 99285; G0378; C9113; J3430

== ENCOUNTER 2019-03-10 20:13 | Inpatient (IN) | payer MEDICARE, SELFPAY ==
[2019-03-10] VITALS (11 sets, daily range): BP systolic 79–129; BP diastolic 58–85; PULSE 66–88; RESP 10–18; TEMP 37.1; O2SAT 95–98; BMI 27.6
--- NOTE | 2019-03-10 20:17 | DI.CT.S_ITS ---
PROCEDURE: CT HEAD/BRAIN WO CON INDICATIONS: trauma TECHNIQUE: Noncontrast 4.5 mm thick angled axial sections acquired from the foramen magnum to the vertex, with coronal and sagittal reformats. For radiation dose reduction, the following was used: automated exposure control, adjustment of mA and/or kV according to patient size. COMPARISON: None. FINDINGS: Image quality: Excellent. CSF spaces: Basal cisterns are patent. No extra-axial fluid collections. The ventricles are symmetric in size and shape. Brain: No intracranial bleeds or masses. There is cerebral volume loss for age, with resultant ventricular and sulcal prominence. There are periventricular and deep white matter chronic small vessel ischemic changes. There is intracranial internal carotid artery atherosclerosis. Skull and face: Calvarium and visualized facial bones appear intact, without suspicious lesions. Sinuses: Visualized sinuses and mastoids are clear. IMPRESSION: No acute intracranial process. Dictated by: Masood Chen M.D. on 03/10/2019 at 20:37 Approved by: Masood Chen M.D. on 03/10/2019 at 20:40
--- NOTE | 2019-03-10 20:17 | DI.CT.S_ITS ---
PROCEDURE: CT CERVICAL SPINE WO CON INDICATIONS: trauma TECHNIQUE: Noncontrast 3 mm thick sections acquired from the skull base to the T4 level. Sagittal and coronal reformats were then constructed. For radiation dose reduction, the following was used: automated exposure control, adjustment of mA and/or kV according to patient size. COMPARISON: None. FINDINGS: Image quality: Excellent. Bones: No fractures or dislocations. Severe diffuse spondylosis and facet arthropathy. Visualized superior ribs are intact. Diffuse osteopenia Soft tissues: Prevertebral soft tissues are normal in thickness. No paravertebral hematomas. No apical pneumothoraces. Small left upper lobe calcified pleural plaque IMPRESSION: No fracture. Severe multilevel cervical spondylosis and facet arthropathy. Dictated by: Masood Chen M.D. on 03/10/2019 at 20:40 Approved by: Masood Chen M.D. on 03/10/2019 at 20:45
--- NOTE | 2019-03-10 20:23 | DI.RAD.S_ITS ---
PROCEDURE: XR CHEST 1V INDICATIONS: Fall. Decreased LOC. TECHNIQUE: One view of the chest was acquired. COMPARISON: [facility], CR, XR CHEST 1V, 12/02/2017, 21:17. FINDINGS: Surgical changes and devices: Sternotomy wires and CABG clips. Lungs and pleura: No acute consolidation. Scattered subsegmental atelectasis and/or scarring. No pleural effusion. No pneumothorax. Hiatal hernia as before Mediastinum: Mediastinal contours appear normal. Heart size is normal. Bones and chest wall: No suspicious bony lesions. Overlying soft tissues appear unremarkable. IMPRESSION: No acute disease. Dictated by: Masood Chen M.D. on 03/10/2019 at 20:54 Approved by: Masood Chen M.D. on 03/10/2019 at 20:55
--- NOTE | 2019-03-10 20:23 | ED.FALL ---
HPI - Fall General Chief Complaint: Trauma Stated Complaint: Head injury Time Seen by Provider: 03/10/19 20:22 Source: EMS Mode of arrival: EMS Limitations: altered mental status History of Present Illness HPI Narrative: The patient has dementia. He fell while walking to his house prior to arrival. The patient is not communicating. There is no obvious head injury, but there was initial complaints of neck pain. It is noted he is moving all extremities. He has had multiple falls recently, for in the past 3 days. He fell into a wall 2 days ago striking his head. There was no obvious LOC at that time. He is anticoagulated with Coumadin for a DVT. Upon arrival he has C-spine immobilization. He is breathing spontaneously with normal blood pressure and respiratory effort. He is not responding to questions and minimally responding noxious stimulation. He is a heavy alcohol drinker, last drinking 3 days ago. He has no known history of cirrhosis associated with the alcohol consumption. He has never had encephalopathy associated with the alcohol consumption, but his describes him as going downhill significantly over the past 4 days. In addition to the alcohol use, and dementia, she has the history had a Klebsiella UTI 2 years ago that required several days of hospitalization. The gentleman is given no history. He has indicated no complaints to his about urinary symptoms. His is not aware of fever, or respiratory illness. There has been no nausea vomiting. Related Data Home Medications Medication Instructions Recorded Confirmed buspirone 10 mg PO DAILY 11/14/17 12/03/17 citalopram 20 mg PO DAILY 11/14/17 12/03/17 olanzapine 10 mg PO DAILY 11/14/17 12/03/17 warfarin 5 mg PO DAILY 11/14/17 12/03/17 ascorbic acid (vitamin C) [Vitamin 500 mg PO DAILY 12/03/17 12/03/17 C] aspirin 81 mg PO DAILY 12/03/17 12/03/17 metoprolol succinate 12.5 mg PO DAILY 12/03/17 12/03/17 omega 3-pso-bmq-fish oil [Fish Oil] 1,000 mg PO DAILY 12/03/17 12/03/17 Previous Rx's Medication Instructions Recorded nitroglycerin 0.4 mg SL Q5M PRN #30 tab MDD 3 11/14/17 doses pantoprazole 40 mg PO DAILY #30 tab 06/27/18 Allergies Allergy/AdvReac Type Severity Reaction Status Date / Time No Known Drug Allergies Allergy Verified 03/10/19 21:09 Review of Systems Review of Systems ROS Unobtainable: Unobtainable due to medical condition Exam Initial Vital Signs Initial Vital Signs: Vital Signs Pulse Rate 88 03/10/19 20:35 Respiratory Rate 18 03/10/19 20:35 Blood Pressure 111/83 03/10/19 20:35 Pulse Oximetry 96 03/10/19 20:35 Const General: No in distress, ill appearing and other (Not verbally responsive.) Nutritional Appearance: cachectic Orientation: obtunded HENTX Head: normocephalic and atraumatic Ears: external ears normal and TM's normal bilaterally Nose: external nose normal and No nasal discharge Face and sinus: sinuses nontender and face symmetric Mouth: oral mucosae normal and moist mucous membranes Throat: tonsils normal and uvula midline Eyes Pupils: PERRL and pupil size on the right, on the left and bilaterally 4 Neck Other: No palpable deformities Chest Chest: normal inspection of the chest Resp Effort & Inspection: normal respiratory effort, able to speak in complete sentences, no respiratory distress and no use of accessory muscles Auscultation: clear to auscultation bilaterally, no rales, no rhonchi and no wheezes Cardio Rate: regular rate Rhythm: regular rhythm Heart Sounds: no click, no gallops, no murmurs and no rubs Pulses: normal peripheral pulses GI Inspection: non-distended Palpation: soft, no hepatosplenomegaly, No guarding, No pulsatile mass and No tender Auscultation: normal bowel sounds Back/Spine/Pelvis Back: normal to inspection, No ecchymosis, No erythema and No sacral edema Thoracic/Lumbar Spine: thoracic and lumbar spine normal to inspection Other: Abrasion over the sacrum. Skin General: no rashes or lesions noted, No jaundice and No petechiae Wounds: wounds noted (Abrasion over the sacrum) Neuro General: moves all extremities, no focal motor deficits and obtunded Extrem Other: Left wrist swelling, no obvious deformity. Normal range of motion all joints. Spontaneous motion in all extremities. [facility] Medical History Alcohol dependence (Acute) CAD (coronary artery disease) (Acute) Dementia (Acute) DVT (deep venous thrombosis) (Acute) Factor V Leiden (Acute) Tobacco dependence due to cigarettes (Acute) Surgical History Hx of CABG (Acute) Social History household members: spouse Smoking Status: Current every day smoker Social History household members: spouse Smoking Status: Current every day smoker Scores GCS Gurpreet coma scale eye opening: To pressure [place] coma scale verbal response: None [place] coma scale motor response: Localising Gurpreet coma scale total score: 8 Course Course Course Narrative: Workup has been extensive. Head and neck CT are negative. Chest x-ray is clear. There is no evidence of URI or respiratory infection. Abdomen is benign on palpation. There are no acute injuries to the abdomen, back or extremities. Labs indicate a urinary infection. The patient experienced a blood pressure drop, systolic pressure down to 78. He has been IV hydrated. He is blood pressure is normalized. A urinary infection was discovered. Blood cultures were obtained. IV Levaquin was ordered. The patient has attended with a history of dementia, and improving UTI. He will be admitted for ongoing care with IV fluids and antibiotics. His has informed me he has a DNR status. The case was discussed with hospitalist, ARIS Garza, the admitting provider. The patient's mental status is greatly diminished. He has dementia, he has multiple falls, he has a urinary infection. His head CT does not show an acute process. He has attended, but airway is intact. A discuss with hospitalist further evaluation tomorrow, and MRI should be considered due to his significant lack of neurologic response. Prior to her departure his reinforced the DNR plan. She separately mentioned DNI plans. Orders Ordered: ED Orders 03/10/19 20:17 CT cervical spine wo con Stat CT head/brain wo con Stat 03/10/19 20:23 XR chest 1V Stat EKG-12 Lead Stat 03/10/19 20:50 Complete Blood Count AUTO DIFF Stat Comprehensive Metabolic Panel Stat D Dimer Stat Ethanol (ETOH) Stat Lactate (Lactic Acid) Stat Partial Thromboplastin Time Stat Prothrombin Time INR Stat Troponin & CK Cardiac Panel Stat 03/10/19 21:12 XR wrist LT min 3V Stat 03/10/19 21:30 Ammonia (NH3) Stat 03/10/19 22:25 Urinalysis and Microscopic Stat Urine Culture Stat Urine Drug Screen, Rapid Stat 03/10/19 23:40 Blood Culture Stat Bisacodyl (Dulcolax) 10 mg AK DAILY PRN PRN Reason: Constipation Docusate Sodium (Colace) 100 mg PO BID PRN PRN Reason: Constipation Enoxaparin Sodium (Lovenox) 70 mg SUBCUT BID COUNT INCLUDES THE [facility] Last Admin: 03/11/19 02:32 Dose: 70 mg Documented by: ENEDELIA Sodium Chloride (Normal Saline 0.9%) 1,000 mls @ 100 mls/hr IV CONT COUNT INCLUDES THE [facility] Last Admin: 03/11/19 01:31 Dose: 100 mls/hr Documented by: ENEDELIA Levofloxacin (Levaquin) 250 mg in 50 mls @ 50 mls/hr IV Q24H COUNT INCLUDES THE [facility] Stop: 03/16/19 21:59 Naloxone HCl (Narcan) 0.2 mg IV Q2MIN PRN PRN Reason: Opiate Reversal Ondansetron HCl (Zofran) 4 mg IV Q8HR PRN PRN Reason: Nausea And Vomiting Discontinued Medications Heparin Sodium (Porcine) (Heparin) 5,000 unit SUBCUT BID COUNT INCLUDES THE [facility] Sodium Chloride (Normal Saline 0.9%) 1,000 mls @ 150 mls/hr IV CONT COUNT INCLUDES THE [facility] Last Infusion: 03/10/19 22:15 Dose: 0 mls/hr Documented by: Admin: 03/10/19 21:12 Dose: 1,000 mls/hr Documented by: RADHA Levofloxacin (Levaquin) 500 mg in 100 mls @ 100 mls/hr IV NOW ONE Stop: 03/11/19 00:19 Last Infusion: 03/11/19 01:04 Dose: 0 mls/hr Documented by: Infusion: 03/11/19 00:35 Dose: 100 mls/hr Documented by: Admin: 03/10/19 23:59 Dose: 100 mls/hr Documented by: THAIS Vital Signs Vital signs: Vital Signs - 8 hr 03/10/19 20:35 03/10/19 20:43 03/10/19 20:55 Temperature 98.7 F Pulse Rate 88 75 73 Respiratory Rate 18 16 12 Blood Pressure 111/83 Blood Pressure [Right Arm] 111/83 90/66 Pulse Oximetry 96 97 03/10/19 21:10 03/10/19 21:15 03/10/19 21:20 Temperature Pulse Rate 71 70 68 Respiratory Rate 14 12 13 Blood Pressure Blood Pressure [Right Arm] 79/58 L 80/61 L 87/65 L Pulse Oximetry 96 96 96 03/10/19 21:25 03/10/19 21:30 03/10/19 21:35 Temperature Pulse Rate 68 67 67 Respiratory Rate 12 12 12 Blood Pressure Blood Pressure [Right Arm] 90/68 101/77 106/81 Pulse Oximetry 95 96 03/10/19 21:45 03/10/19 22:00 Temperature Pulse Rate 68 68 Respiratory Rate 12 10 L Blood Pressure Blood Pressure [Right Arm] 117/81 129/85 Pulse Oximetry 96 98 fall Lab Data Result diagrams: 03/10/19 20:50 03/10/19 20:50 Labs: Lab Results 03/10/19 03/10/19 03/10/19 Range/Units 20:50 20:50 20:50 WBC 7.8 (4.5-11.0) X10^3/uL RBC 4.37 L (4.5-5.9) X10^6/uL Hgb 13.8 (13.5-17.5) g/dL Hct 40.9 L (41-53) % MCV 93.6 (80-100) fL MCH 31.7 (26-34) PG MCHC 33.9 (30-36) % RDW 13.4 (11.6-14.8) % Plt Count 178 (150-400) X10^3/uL Neut % (Auto) 83.9 H (50-75) % Lymph % (Auto) 9.0 L (25-40) % Dade % (Auto) 5.9 (3-14) % Eos % (Auto) 0.7 L (2-4) % Baso % (Auto) 0.5 (0-2) % Neut # (Auto) 6600 (2442-4399) /uL Lymph # (Auto) 700 L (8644-8534) /uL Dade # (Auto) 500 (0-900) /uL Eos # (Auto) 100 (0-450) /uL Baso # (Auto) 0 (0-100) /uL PT 12.1 (10.1-12.7) SECONDS INR 1.1 (0.9-1.3) APTT 31 (26.4-36.2) SECONDS D-Dimer (<230) ng/mL Sodium 140 (137-145) mmol/L Potassium 3.8 (3.4-5.1) mmol/L Chloride 107 (98-107) mmol/L Carbon Dioxide 23 (22-32) mmol/L BUN 30 H (9-20) mg/dL Creatinine 1.70 H (0.66-1.25) mg/dL Estimated GFR 39.2 L (>60) mL/min BUN/Creatinine Ratio 17.6 (6-22) Glucose 155 H (80-110) mg/dL Lactate (0.7-2.1) mmol/L Calcium 9.6 (8.4-10.2) mg/dL Total Bilirubin 0.6 (0.2-1.3) mg/dL AST 30 (17-59) IU/L ALT 19 L (21-72) IU/L Alkaline Phosphatase 85 (38-126) U/L Ammonia (9-30) umol/L Total Creatine Kinase (55-170) U/L CK-MB (CK-2) (<2.37) ng/mL CK-MB (CK-2) Rel Index (1.5-5.0) % Troponin I (0.01-0.034) ng/mL Total Protein 6.9 (6.3-8.2) g/dL Albumin 4.0 (3.5-5.0) g/dL Globulin 2.9 (1.7-4.1) g/dL Albumin/Globulin Ratio 1.4 (1.0-2.8) Prolactin (3.7-17.9) ng/mL Urine Color Urine Appearance Urine pH (4.5-8.0) Ur Specific [place] (1.000-1.035) Urine Protein (Negative) Urine Glucose (UA) (Negative) g/dL Urine Ketones (NEGATIVE) Urine Occult Blood (Negative) Urine Nitrate (Negative) Urine Bilirubin (NEGATIVE) Urine Urobilinogen (0.2) E.U./dL Ur Leukocyte Esterase (NEGATIVE) Urine RBC (0-5/HPF) Urine WBC (0-5/HPF) Urine Bacteria (None) Ur Culture Indicated? U Morph 300 ng/mL cutoff (Negative) Ur Oxycodone Screen (Negative) Urine Methadone Screen (Negative) Ur Barbiturates Screen (Negative) U Tricyclic Antidepress (Negative) Ur Phencyclidine Scrn (Negative) Ur Amphetamines Screen (Negative) U Methamphetamines Scrn (Negative) Ur MDMA Scrn (Ecstasy) (Negative) U Benzodiazepines Scrn (Negative) Urine Cocaine Screen (Negative) U Marijuana (THC) Screen (Negative) Ethyl Alcohol ( - 10) mg/dL 03/10/19 03/10/19 03/10/19 Range/Units 20:50 20:50 20:50 WBC (4.5-11.0) X10^3/uL RBC (4.5-5.9) X10^6/uL Hgb (13.5-17.5) g/dL Hct (41-53) % MCV (80-100) fL MCH (26-34) PG MCHC (30-36) % RDW (11.6-14.8) % Plt Count (150-400) X10^3/uL Neut % (Auto) (50-75) % Lymph % (Auto) (25-40) % Dade % (Auto) (3-14) % Eos % (Auto) (2-4) % Baso % (Auto) (0-2) % Neut # (Auto) (0120-1111) /uL Lymph # (Auto) (6809-2415) /uL Dade # (Auto) (0-900) /uL Eos # (Auto) (0-450) /uL Baso # (Auto) (0-100) /uL PT (10.1-12.7) SECONDS INR (0.9-1.3) APTT (26.4-36.2) SECONDS D-Dimer 496 H (<230) ng/mL Sodium (137-145) mmol/L Potassium (3.4-5.1) mmol/L Chloride (98-107) mmol/L Carbon Dioxide (22-32) mmol/L BUN (9-20) mg/dL Creatinine (0.66-1.25) mg/dL Estimated GFR (>60) mL/min BUN/Creatinine Ratio (6-22) Glucose (80-110) mg/dL Lactate (0.7-2.1) mmol/L Calcium (8.4-10.2) mg/dL Total Bilirubin (0.2-1.3) mg/dL AST (17-59) IU/L ALT (21-72) IU/L Alkaline Phosphatase (38-126) U/L Ammonia (9-30) umol/L Total Creatine Kinase 167 (55-170) U/L CK-MB (CK-2) 3.28 H (<2.37) ng/mL CK-MB (CK-2) Rel Index 2.0 (1.5-5.0) % Troponin I < 0.012 (0.01-0.034) ng/mL Total Protein (6.3-8.2) g/dL Albumin (3.5-5.0) g/dL Globulin (1.7-4.1) g/dL Albumin/Globulin Ratio (1.0-2.8) Prolactin (3.7-17.9) ng/mL Urine Color Urine Appearance Urine pH (4.5-8.0) Ur Specific [place] (1.000-1.035) Urine Protein (Negative) Urine Glucose (UA) (Negative) g/dL Urine Ketones (NEGATIVE) Urine Occult Blood (Negative) Urine Nitrate (Negative) Urine Bilirubin (NEGATIVE) Urine Urobilinogen (0.2) E.U./dL Ur Leukocyte Esterase (NEGATIVE) Urine RBC (0-5/HPF) Urine WBC (0-5/HPF) Urine Bacteria (None) Ur Culture Indicated? U Morph 300 ng/mL cutoff (Negative) Ur Oxycodone Screen (Negative) Urine Methadone Screen (Negative) Ur Barbiturates Screen (Negative) U Tricyclic Antidepress (Negative) Ur Phencyclidine Scrn (Negative) Ur Amphetamines Screen (Negative) U Methamphetamines Scrn (Negative) Ur MDMA Scrn (Ecstasy) (Negative) U Benzodiazepines Scrn (Negative) Urine Cocaine Screen (Negative) U Marijuana (THC) Screen (Negative) Ethyl Alcohol < 10 ( - 10) mg/dL 03/10/19 03/10/19 03/10/19 Range/Units 20:50 20:50 21:30 WBC (4.5-11.0) X10^3/uL RBC (4.5-5.9) X10^6/uL Hgb (13.5-17.5) g/dL Hct (41-53) % MCV (80-100) fL MCH (26-34) PG MCHC (30-36) % RDW (11.6-14.8) % Plt Count (150-400) X10^3/uL Neut % (Auto) (50-75) % Lymph % (Auto) (25-40) % Dade % (Auto) (3-14) % Eos % (Auto) (2-4) % Baso % (Auto) (0-2) % Neut # (Auto) (0170-5278) /uL Lymph # (Auto) (7441-7634) /uL Dade # (Auto) (0-900) /uL Eos # (Auto) (0-450) /uL Baso # (Auto) (0-100) /uL PT (10.1-12.7) SECONDS INR (0.9-1.3) APTT (26.4-36.2) SECONDS D-Dimer (<230) ng/mL Sodium (137-145) mmol/L Potassium (3.4-5.1) mmol/L Chloride (98-107) mmol/L Carbon Dioxide (22-32) mmol/L BUN (9-20) mg/dL Creatinine (0.66-1.25) mg/dL Estimated GFR (>60) mL/min BUN/Creatinine Ratio (6-22) Glucose (80-110) mg/dL Lactate 1.7 (0.7-2.1) mmol/L Calcium (8.4-10.2) mg/dL Total Bilirubin (0.2-1.3) mg/dL AST (17-59) IU/L ALT (21-72) IU/L Alkaline Phosphatase (38-126) U/L Ammonia < 9.0 L (9-30) umol/L Total Creatine Kinase (55-170) U/L CK-MB (CK-2) (<2.37) ng/mL CK-MB (CK-2) Rel Index (1.5-5.0) % Troponin I (0.01-0.034) ng/mL Total Protein (6.3-8.2) g/dL Albumin (3.5-5.0) g/dL Globulin (1.7-4.1) g/dL Albumin/Globulin Ratio (1.0-2.8) Prolactin 23.9 H (3.7-17.9) ng/mL Urine Color Urine Appearance Urine pH (4.5-8.0) Ur Specific [place] (1.000-1.035) Urine Protein (Negative) Urine Glucose (UA) (Negative) g/dL Urine Ketones (NEGATIVE) Urine Occult Blood (Negative) Urine Nitrate (Negative) Urine Bilirubin (NEGATIVE) Urine Urobilinogen (0.2) E.U./dL Ur Leukocyte Esterase (NEGATIVE) Urine RBC (0-5/HPF) Urine WBC (0-5/HPF) Urine Bacteria (None) Ur Culture Indicated? U Morph 300 ng/mL cutoff (Negative) Ur Oxycodone Screen (Negative) Urine Methadone Screen (Negative) Ur Barbiturates Screen (Negative) U Tricyclic Antidepress (Negative) Ur Phencyclidine Scrn (Negative) Ur Amphetamines Screen (Negative) U Methamphetamines Scrn (Negative) Ur MDMA Scrn (Ecstasy) (Negative) U Benzodiazepines Scrn (Negative) Urine Cocaine Screen (Negative) U Marijuana (THC) Screen (Negative) Ethyl Alcohol ( - 10) mg/dL 03/10/19 03/10/19 Range/Units 22:25 22:25 WBC (4.5-11.0) X10^3/uL RBC (4.5-5.9) X10^6/uL Hgb (13.5-17.5) g/dL Hct (41-53) % MCV (80-100) fL MCH (26-34) PG MCHC (30-36) % RDW (11.6-14.8) % Plt Count (150-400) X10^3/uL Neut % (Auto) (50-75) % Lymph % (Auto) (25-40) % [place]ade % (Auto) (3-14) % Eos % (Auto) (2-4) % Baso % (Auto) (0-2) % Neut # (Auto) (8143-5897) /uL Lymph # (Auto) (9309-1127) /uL Dade # (Auto) (0-900) /uL Eos # (Auto) (0-450) /uL Baso # (Auto) (0-100) /uL PT (10.1-12.7) SECONDS INR (0.9-1.3) APTT (26.4-36.2) SECONDS D-Dimer (<230) ng/mL Sodium (137-145) mmol/L Potassium (3.4-5.1) mmol/L Chloride (98-107) mmol/L Carbon Dioxide (22-32) mmol/L BUN (9-20) mg/dL Creatinine (0.66-1.25) mg/dL Estimated GFR (>60) mL/min BUN/Creatinine Ratio (6-22) Glucose (80-110) mg/dL Lactate (0.7-2.1) mmol/L Calcium (8.4-10.2) mg/dL Total Bilirubin (0.2-1.3) mg/dL AST (17-59) IU/L ALT (21-72) IU/L Alkaline Phosphatase (38-126) U/L Ammonia (9-30) umol/L Total Creatine Kinase (55-170) U/L CK-MB (CK-2) (<2.37) ng/mL CK-MB (CK-2) Rel Index (1.5-5.0) % Troponin I (0.01-0.034) ng/mL Total Protein (6.3-8.2) g/dL Albumin (3.5-5.0) g/dL Globulin (1.7-4.1) g/dL Albumin/Globulin Ratio (1.0-2.8) Prolactin (3.7-17.9) ng/mL Urine Color Yellow Urine Appearance Slightly cloudy Urine pH 5.0 (4.5-8.0) Ur Specific [place] 1.020 (1.000-1.035) Urine Protein 1+ H (Negative) Urine Glucose (UA) Negative (Negative) g/dL Urine Ketones Negative (NEGATIVE) Urine Occult Blood 1+ H (Negative) Urine Nitrate Negative (Negative) Urine Bilirubin Negative (NEGATIVE) Urine Urobilinogen 0.2 (0.2) E.U./dL Ur Leukocyte Esterase 1+ H (NEGATIVE) Urine RBC None seen (0-5/HPF) Urine WBC 10-30/hpf H (0-5/HPF) Urine Bacteria Few (2-10) H (None) Ur Culture Indicated? Specimen cultured U Morph 300 ng/mL cutoff Negative (Negative) Ur Oxycodone Screen Negative (Negative) Urine Methadone Screen Negative (Negative) Ur Barbiturates Screen Negative (Negative) U Tricyclic Antidepress Positive H (Negative) Ur Phencyclidine Scrn Negative (Negative) Ur Amphetamines Screen Negative (Negative) U Methamphetamines Scrn Negative (Negative) Ur MDMA Scrn (Ecstasy) Negative (Negative) U Benzodiazepines Scrn Negative (Negative) Urine Cocaine Screen Negative (Negative) U Marijuana (THC) Screen Negative (Negative) Ethyl Alcohol ( - 10) mg/dL Point of Care Testing Glucose POC [address]:: Radiologist's impression: No acute findings CT C-spine:: Radiologist's impression: No acute findings Chest x-ray: Radiologist's impression: No acute findings Left wrist x-ray:: Radiologist's impression: No fracture. Critical Care Time Critical Care Time Critical Care Time: Yes Total Critical Care Time: 45 Attestation: Care included interview with family and paramedics. Care included the physical evaluation, review of radiology, lab and EKG data, and multiple clinical decisions. Care of it reviewing a care plan with the patient's family. Care is completed with discussion with the admitting physician. Discharge Plan Departure Patient Disposition: Admitted As Inpatient Clinical Impression: Altered mental status Qualifiers: Altered mental status type: coma Coma depth: Gurpreet coma 3-8 Coma timing: at arrival to emergency department Qualified Code(s): R40.2432 - [place] coma scale score 3-8, at arrival to emergency department Dementia Qualifiers: Dementia type: unspecified type Dementia behavioral disturbance: without behavioral disturbance Qualified Code(s): F03.90 - Unspecified dementia without behavioral disturbance Urinary tract infection Qualifiers: Urinary tract infection type: site unspecified Hematuria presence: without hematuria Qualified Code(s): N39.0 - Urinary tract infection, site not specified Discharge Date/Time: 03/11/19 00:35 Admit Date/Time: 03/11/19 00:21 Admit Provider: Mike Garza
[2019-03-10 21:03] LABS: Add Manual Diff / Slide Review NO; Basophils Absolute Auto 0 /uL (0-100); Basophils Percent Auto 0.5 % (0-2); Eosinophils Absolute Auto 100 /uL (0-450); Eosinophils Percent Auto 0.7 % (2-4); Hematocrit 40.9 % (41-53); Hemoglobin 13.8 g/dL (13.5-17.5); Lymphocytes Absolute Auto 700 /uL (1100-4500); Mean Corpuscular HGB Conc 33.9 % (30-36); Mean Corpuscular Hemoglobin 31.7 PG (26-34); Mean Corpuscular Volume 93.6 fL (80-100); Monocytes Absolute Auto 500 /uL (0-900); Monocytes Percent Auto 5.9 % (3-14); Neutrophils Absolute Auto 6600 /uL (1500-7000); Neutrophils Percent Auto 83.9 % (50-75); Platelet Count 178 X10^3/uL (150-400); Red Blood Cell Count 4.37 X10^6/uL (4.5-5.9); Red Cell Distribution Width 13.4 % (11.6-14.8); White Blood Cell Count 7.8 X10^3/uL (4.5-11.0)
[2019-03-10 21:08] LABS: INR 1.1 (0.9-1.3); Prothrombin Time 12.1 SECONDS (10.1-12.7)
[2019-03-10 21:11] LABS: PTT Partial Thromboplastin Tim 31 SECONDS (26.4-36.2)
[2019-03-10] MEDS: SODIUM CHLORIDE 0.9% 1,000 ML 1000 ML IV (21:12)
--- NOTE | 2019-03-10 21:12 | DI.RAD.S_ITS ---
PROCEDURE: XR WRIST LT MIN 3V INDICATIONS: swollen, recent fall. TECHNIQUE: 4 views of the wrist were acquired. COMPARISON: None. FINDINGS: Bones: No fractures or dislocations. No suspicious bony lesions. 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 Diffuse interphalangeal and carpal joint degeneration Soft tissues: No suspicious soft tissue calcifications. Scattered vascular calcifications IMPRESSION: No fracture. If the patient's symptoms do not improve recommend followup radiographs in 10 days to assess for healing sclerosis/occult injury. Dictated by: Masood Chen M.D. on 03/10/2019 at 21:50 Approved by: Masood Chen M.D. on 03/10/2019 at 21:54
[2019-03-10 21:13] LABS: Alanine Aminotransferase 19 IU/L (21-72); Albumin Globulin Ratio 1.4 (1.0-2.8); Alkaline Phosphatase 85 U/L (38-126); Aspartate Aminotransferase 30 IU/L (17-59); BUN Creatinine Ratio 17.6 (6-22); Bilirubin Total 0.6 mg/dL (0.2-1.3); Blood Urea Nitrogen 30 mg/dL (9-20); Calcium 9.6 mg/dL (8.4-10.2); Carbon Dioxide 23 mmol/L (22-32); Chloride 107 mmol/L (98-107); Estimated Glomerular Filt Rate 39.2 mL/min (>60); Globulin 2.9 g/dL (1.7-4.1); Glucose 155 mg/dL (80-110); HEMOLYSIS < 15 (0-50); Potassium 3.8 mmol/L (3.4-5.1); Sodium 140 mmol/L (137-145); Total Protein 6.9 g/dL (6.3-8.2)
[2019-03-10 21:28] LABS: Ethanol (ETOH) < 10 mg/dL
[2019-03-10 21:31] LABS: D Dimer 496 ng/mL (<230)
[2019-03-10 21:34] LABS: Creatine Kinase 167 U/L (55-170); Lactate (Lactic Acid) 1.7 mmol/L (0.7-2.1)
[2019-03-10 21:45] LABS: Ammonia (NH3) < 9.0 umol/L (9-30)
[2019-03-10 21:47] LABS: Troponin I < 0.012 ng/mL (0.01-0.034)
[2019-03-10 21:51] LABS: Creatine Kinase MB 3.28 ng/mL (<2.37)
--- NOTE | 2019-03-10 22:16 | PC.NURSE ---
Late entry: Pt noted to by hypotensive @ 2055 w/ continued monitoring noted worsening hypotension. Dr. Chambers to bedside and ordered fluid be given as a bolus. Pt remained w/ poor responsiveness throughout. Pt bp improved w/ liter bolus. Family aware and agree w/ plan of care. .
[2019-03-10 22:38] LABS: RBC Urine None Seen (0-5/HPF)
[2019-03-10 22:41] LABS: Bilirubin Urine UA NEGATIVE (NEGATIVE); Color Urine UA YELLOW; Glucose Urine UA NEGATIVE (Negative); Ketones Urine UA NEGATIVE (NEGATIVE); Leukocyte Esterase Urine UA 1+ (NEGATIVE); Nitrite Urine UA NEGATIVE (Negative); Occult Blood Urine UA 1+ (Negative); Protein Urine UA 1+ (Negative); Urobilinogen Urine UA 0.2 E.U./dL (0.2)
[2019-03-10 22:43] LABS: Appearance Urine UA Slightly Cloudy
[2019-03-10 22:48] LABS: Ur Creatinine 50 (Normal); Ur Specific Gravity 1.025 (Normal)
[2019-03-10 22:49] LABS: UR Morphine/Opiate cutoff 300 Negative (Negative); Urine Amphetamines Negative (Negative); Urine Barbiturates Negative (Negative); Urine Benzodiazepines Negative (Negative); Urine Cocaine Negative (Negative); Urine MDMA Negative (Negative); Urine Methadone Negative (Negative); Urine Methamphetamines Negative (Negative); Urine Oxycodone Negative (Negative); Urine Phencyclidine Negative (Negative); Urine Tetrahydrocannabinol Negative (Negative); Urine Tricyclic Antidepressant Positive (Negative); Urine pH 5 (Normal)
[2019-03-10 23:17] LABS: Bacteria Urine Few (2-10); WBC Urine 10-30/HPF (0-5/HPF)
[2019-03-10 23:18] LABS: Culture Indicated Urine Specimen Cultured
[2019-03-10] MEDS: levoFLOXacin 500 MG/100 ML PIGGYBACK 100 MG IV (23:59)
[2019-03-11] VITALS (8 sets, daily range): BP systolic 117–165; BP diastolic 68–96; PULSE 62–84; RESP 15–18; TEMP 36.2–37.5; O2SAT 98–100; BMI 25.8
--- NOTE | 2019-03-11 00:01 | PC.NURSE ---
2330: report received from LEYDA Tran. Pt remains unresponsive to verbal stimuli. withdraw from pain but does not localize. protecting his airway. RR easy and unlabored. Somnolent. skin warm and dry, BP 120/75 HR 75 NSR with occasional PVC's. Abd SNT. Lungs clear. remains on cardiac monitoring. Lopez in place draining concentrated yellow urine. UA sent and + for leuks and blood. Levaquin infusing per EMR.
--- NOTE | 2019-03-11 00:39 | PM.HP.1 ---
History of Present Illness History of Present Illness Date Patient Seen: 03/11/19 Time Patient Seen: 00:20 Chief complaint: Head injury Narrative: Mr. Quinton Joe is a 78 year old male with a history significant for coronary artery disease status post CABG, hiatal hernia, factor V Leiden with history of DVT, dementia, alcohol and tobacco dependence who was brought into the ER by EMS with altered mental status post falls. The patient was walking into his house when he fell today. He has experienced 4 falls in the last 3 days. Per his the patient states he has been deteriorating rapidly over the last 4 days. Two days ago he fell and hit his head and has a history of being on warfarin for factor V Leiden and history of DVT. Upon arrival in the ER the patient is nonverbal, not responding to questions or commands with minimal response to noxious stimulus. He has a past history of heavy alcohol use but per family report has had none for the last 3 days. No seizure activity was noted by family or EMS personnel. He has had no vomiting. The patient is unable to provide subjective data due to altered mental status. In the ER the patient is found to be afebrile with temperature of 98.7?, heart rate of 75, blood pressure of 111/83 which dropped precipitously to 79/58 and following fluid resuscitation has returned to 129/85. Respirations are 16 and nonlabored with an oxygen saturation of 97% on room air. Due to the fall patient had a CT the next which found no fractures. He also had a CT of the head which shows no acute intracranial processes. A chest x-ray was taken which finds no acute cardio pulmonary pathology. His EKG shows sinus rhythm with a ventricular rate of 77, first-degree AV block and an incomplete right bundle branch block. On labs he has a normal white count at 7.8, hemoglobin and hematocrit of 13.8 and 40.9 and platelets of 178. Electrolytes are all within normal range. He has a BUN of 30 and elevated creatinine 1.7 and nonfasting glucose 155. His LFTs are within normal range and his ammonia is less than 9. Lactic acid is obtained at 1.7. On coagulation as a PT of 12.1 and INR 1.1 with a PTT of 31. His troponin is less than 0.012. Urinalysis is positive for protein, leukocyte esterase, WBCs, and bacteria and will be cultured. Blood cultures are drawn and the patient started on Levaquin 500 mg IV with a past history of a Klebsiella UTI. Patient History Medical History Alcohol dependence (Acute) CAD (coronary artery disease) (Acute) Dementia (Acute) DVT (deep venous thrombosis) (Acute) Factor V Leiden (Acute) Tobacco dependence due to cigarettes (Acute) Surgical History Hx of CABG (Acute) Social History household members: spouse Smoking Status: Current every day smoker Family & Social History Family history unavailable: No (No family is present at bedside, the patient is) Social History: household members spouse Safety & Behavioral: Feels Safe in Current Unwilling to Answer Environment Been Physically Hurt or Unwilling to Answer Threatened By a Person Tobacco & Substance use: Smoking Status Current every day smoker alcohol intake frequency 0-2 drinks per day Substance Use Type does not use Comment: The patient is and lives at home with his . No family or social history is available in the absence of family and the patient comatose. Smoking: History of daily smoking Alcohol: Daily drinker but none for 3 days. Substance use: Per family report the patient does not use herbal or cannabis products. Advanced directives: There is no previous record of advanced directives, the family has departed. Dr. Chambers discussed code status with the family noting in his report: ?His has informed me he has a DNR status. Meds Home Medications and Allergies Home Medications Medication Instructions Recorded Confirmed Type buspirone 10 mg PO DAILY 11/14/17 12/03/17 History citalopram 20 mg PO DAILY 11/14/17 12/03/17 History nitroglycerin 0.4 mg SL Q5M PRN #30 tab MDD 3 11/14/17 12/03/17 Rx doses olanzapine 10 mg PO DAILY 11/14/17 12/03/17 History warfarin 5 mg PO DAILY 11/14/17 12/03/17 History ascorbic acid (vitamin C) [Vitamin 500 mg PO DAILY 12/03/17 12/03/17 History C] aspirin 81 mg PO DAILY 12/03/17 12/03/17 History metoprolol succinate 12.5 mg PO DAILY 12/03/17 12/03/17 History omega 6-okd-var-fish oil [Fish Oil] 1,000 mg PO DAILY 12/03/17 12/03/17 History pantoprazole 40 mg PO DAILY #30 tab 12/03/17 Rx Allergies Allergy/AdvReac Type Severity Reaction Status Date / Time No Known Drug Allergies Allergy Verified 03/10/19 21:09 Review of Systems Review of Systems ROS Unobtainable: unobtainable due to mental status (Patient is comatose with GCS of 7.) Exam Vital Signs (past 8 hours): - 03/10/19 20:35 03/10/19 20:43 03/10/19 20:55 Temperature 98.7 F Pulse Rate 88 75 73 Respiratory Rate 18 16 12 Blood Pressure 111/83 Blood Pressure [Right Arm] 111/83 90/66 Pulse Oximetry 96 97 03/10/19 21:10 03/10/19 21:15 03/10/19 21:20 Temperature Pulse Rate 71 70 68 Respiratory Rate 14 12 13 Blood Pressure Blood Pressure [Right Arm] 79/58 L 80/61 L 87/65 L Pulse Oximetry 96 96 96 03/10/19 21:25 03/10/19 21:30 03/10/19 21:35 Temperature Pulse Rate 68 67 67 Respiratory Rate 12 12 12 Blood Pressure Blood Pressure [Right Arm] 90/68 101/77 106/81 Pulse Oximetry 95 96 03/10/19 21:45 03/10/19 22:00 03/11/19 00:32 Temperature Pulse Rate 68 68 70 Respiratory Rate 12 10 L 16 Blood Pressure 117/71 Blood Pressure [Right Arm] 117/81 129/85 Pulse Oximetry 96 98 98 Oxygen Delivery Method Room Air Narrative Exam Narrative: GENERAL APPEARANCE: well developed, unresponsive male in no acute distress. HEENT: Normocephalic, PERRLA, sclera anicteric, conjunctiva clear, EOMs intact without nystagmus, no sinus tenderness to percussion, no rhinorrhea, mucous membranes are moist and pink without lesions or exudate. NECK/THYROID: neck supple, no JVD, no thyromegaly, trachea midline. LYMPH NODES: no cervical or supraclavicular lymphadenopathy. SKIN: warm and dry, no suspicious lesions, no rashes, ulcerations or petechiae. HEART: regular rate and rhythm, S1-S2, no murmur, no rubs or gallops, 2+ dorsalis pedis pulses, no edema LUNGS: Scattered faint crackles without coarseness or wheezing, no cough present CHEST: Symmetrical movement, shallow respirations, no accessory muscle use ABDOMEN: Soft, no distention, dipping to percussion bilateral upper quadrants, no grimace or guarding on deep palpation, no organomegaly, active bowel tones. BACK: Nontender EXTREMITIES: Flexion of arms with noxious stimulation NEUROLOGIC: Patient is unconscious, GCS 7, responsive to noxious stimulus with arm movement inconsistent response with occasional moan. Will not follow commands, 1+ bilateral biceps reflexes positive Babinski, some movement with occulocephalic reflex. PSYCH: Unconscious Objective Labs Result Diagrams: 03/10/19 20:50 03/10/19 20:50 Labs: Laboratory Results - last 24 hr 03/10/19 03/10/19 03/10/19 20:50 20:50 20:50 WBC 7.8 RBC 4.37 L Hgb 13.8 Hct 40.9 L MCV 93.6 MCH 31.7 MCHC 33.9 RDW 13.4 Plt Count 178 Neut % (Auto) 83.9 H Lymph % (Auto) 9.0 L [place] % (Auto) 5.9 Eos % (Auto) 0.7 L Baso % (Auto) 0.5 Neut # (Auto) 6600 Lymph # (Auto) 700 L [place] # (Auto) 500 Eos # (Auto) 100 Baso # (Auto) 0 PT 12.1 INR 1.1 APTT 31 D-Dimer Sodium 140 Potassium 3.8 Chloride 107 Carbon Dioxide 23 BUN 30 H Creatinine 1.70 H Estimated GFR 39.2 L BUN/Creatinine Ratio 17.6 Glucose 155 H Lactate Calcium 9.6 Total Bilirubin 0.6 AST 30 ALT 19 L Alkaline Phosphatase 85 Ammonia Total Creatine Kinase CK-MB (CK-2) CK-MB (CK-2) Rel Index Troponin I Total Protein 6.9 Albumin 4.0 Globulin 2.9 Albumin/Globulin Ratio 1.4 Urine Color Urine Appearance Urine pH Ur Specific [place] Urine Protein Urine Glucose (UA) Urine Ketones Urine Occult Blood Urine Nitrate Urine Bilirubin Urine Urobilinogen Ur Leukocyte Esterase Urine RBC Urine WBC Urine Bacteria Ur Culture Indicated? U Morph 300 ng/mL cutoff Ur Oxycodone Screen Urine Methadone Screen Ur Barbiturates Screen U Tricyclic Antidepress Ur Phencyclidine Scrn Ur Amphetamines Screen U Methamphetamines Scrn Ur MDMA Scrn (Ecstasy) U Benzodiazepines Scrn Urine Cocaine Screen U Marijuana (THC) Screen Ethyl Alcohol 03/10/19 03/10/19 03/10/19 20:50 20:50 20:50 WBC RBC Hgb Hct MCV MCH MCHC RDW Plt Count Neut % (Auto) Lymph % (Auto) [place] % (Auto) Eos % (Auto) Baso % (Auto) Neut # (Auto) Lymph # (Auto) [place] # (Auto) Eos # (Auto) Baso # (Auto) PT INR APTT D-Dimer 496 H Sodium Potassium Chloride Carbon Dioxide BUN Creatinine Estimated GFR BUN/Creatinine Ratio Glucose Lactate Calcium Total Bilirubin AST ALT Alkaline Phosphatase Ammonia Total Creatine Kinase 167 CK-MB (CK-2) 3.28 H CK-MB (CK-2) Rel Index 2.0 Troponin I < 0.012 Total Protein Albumin Globulin Albumin/Globulin Ratio Urine Color Urine Appearance Urine pH Ur Specific [place] Urine Protein Urine Glucose (UA) Urine Ketones Urine Occult Blood Urine Nitrate Urine Bilirubin Urine Urobilinogen Ur Leukocyte Esterase Urine RBC Urine WBC Urine Bacteria Ur Culture Indicated? U Morph 300 ng/mL cutoff Ur Oxycodone Screen Urine Methadone Screen Ur Barbiturates Screen U Tricyclic Antidepress Ur Phencyclidine Scrn Ur Amphetamines Screen U Methamphetamines Scrn Ur MDMA Scrn (Ecstasy) U Benzodiazepines Scrn Urine Cocaine Screen U Marijuana (THC) Screen Ethyl Alcohol < 10 03/10/19 03/10/19 03/10/19 20:50 21:30 22:25 WBC RBC Hgb Hct MCV MCH MCHC RDW Plt Count Neut % (Auto) Lymph % (Auto) [place] % (Auto) Eos % (Auto) Baso % (Auto) Neut # (Auto) Lymph # (Auto) [place] # (Auto) Eos # (Auto) Baso # (Auto) PT INR APTT D-Dimer Sodium Potassium Chloride Carbon Dioxide BUN Creatinine Estimated GFR BUN/Creatinine Ratio Glucose Lactate 1.7 Calcium Total Bilirubin AST ALT Alkaline Phosphatase Ammonia < 9.0 L Total Creatine Kinase CK-MB (CK-2) CK-MB (CK-2) Rel Index Troponin I Total Protein Albumin Globulin Albumin/Globulin Ratio Urine Color Yellow Urine Appearance Slightly cloudy Urine pH 5.0 Ur Specific [place] 1.020 Urine Protein 1+ H Urine Glucose (UA) Negative Urine Ketones Negative Urine Occult Blood 1+ H Urine Nitrate Negative Urine Bilirubin Negative Urine Urobilinogen 0.2 Ur Leukocyte Esterase 1+ H Urine RBC None seen Urine WBC 10-30/hpf H Urine Bacteria Few (2-10) H Ur Culture Indicated? Specimen cultured U Morph 300 ng/mL cutoff Ur Oxycodone Screen Urine Methadone Screen Ur Barbiturates Screen U Tricyclic Antidepress Ur Phencyclidine Scrn Ur Amphetamines Screen U Methamphetamines Scrn Ur MDMA Scrn (Ecstasy) U Benzodiazepines Scrn Urine Cocaine Screen U Marijuana (THC) Screen Ethyl Alcohol 03/10/19 22:25 WBC RBC Hgb Hct MCV MCH MCHC RDW Plt Count Neut % (Auto) Lymph % (Auto) [place] % (Auto) Eos % (Auto) Baso % (Auto) Neut # (Auto) Lymph # (Auto) [place] # (Auto) Eos # (Auto) Baso # (Auto) PT INR APTT D-Dimer Sodium Potassium Chloride Carbon Dioxide BUN Creatinine Estimated GFR BUN/Creatinine Ratio Glucose Lactate Calcium Total Bilirubin AST ALT Alkaline Phosphatase Ammonia Total Creatine Kinase CK-MB (CK-2) CK-MB (CK-2) Rel Index Troponin I Total Protein Albumin Globulin Albumin/Globulin Ratio Urine Color Urine Appearance Urine pH Ur Specific [place] Urine Protein Urine Glucose (UA) Urine Ketones Urine Occult Blood Urine Nitrate Urine Bilirubin Urine Urobilinogen Ur Leukocyte Esterase Urine RBC Urine WBC Urine Bacteria Ur Culture Indicated? U Morph 300 ng/mL cutoff Negative Ur Oxycodone Screen Negative Urine Methadone Screen Negative Ur Barbiturates Screen Negative U Tricyclic Antidepress Positive H Ur Phencyclidine Scrn Negative Ur Amphetamines Screen Negative U Methamphetamines Scrn Negative Ur MDMA Scrn (Ecstasy) Negative U Benzodiazepines Scrn Negative Urine Cocaine Screen Negative U Marijuana (THC) Screen Negative Ethyl Alcohol Assessment & Plan Assessment & Plan narrative: This is a 70-year-old male patient who per family report has been deteriorating for the last 4 days with increasing falls. His most recent fall was today walking into the house. The patient has been nonverbal unresponsive while in the ER. No subjective history is available to augment decision making. Per the patient's the patient is DNR DNI with limited interventions. 1. Urinary tract infection, acute, present on admission, active. -Lopez catheter placed to obtain urine sample and related to comatose state. -urinary tract infections dental fight on urinalysis with positive blood, leukocyte esterase, WBCs and bacteria. -patient has had a prior urinary tract infection with Klebsiella 2 years ago -patient started on Levaquin 500 mg IV in the emergency department, will continue Levaquin 250 mg IV daily due to renal status. 2. Altered mental status, acute on chronic, present on admission, active -differential diagnosis includes: -closed head injury-history of multiple falls on Coumadin however his INR on admission is 1.1. CT of the head is negative for intercranial pathology. -acute metabolic encephalopathy-patient has urinary tract infection be treated as above -advanced dementia-head CT finds cerebral atrophy for age with chronic microvascular vascular changes. -CVA-patient has had increasing falls, acutely unresponsive post last fall, no facial droop or report of ataxia CT of the head is negative, will obtain MRI in the morning. Will be unable to obtain MR with contrast related to renal function. 3. Alcohol dependence, chronic, active. -current ETOH level is less than 10 with reports patient having no alcoholic beverages for the last 3 days. -no reports of tremors or seizure activity. Patient presentation is inconsistent with withdrawal syndrome. -will monitor the patient for withdrawal symptoms. 4. Coronary artery disease, chronic, stable -review of serial 12 lead EKGs the patient has remained in sinus Renaldo to sinus rhythm with first-degree AV block with incomplete right bundle. -the patient has reported no chest pain or difficulty breathing to his . -patient with hypotensive episode in the emergency department resolved with fluid resuscitation -patient is on telemetry. 5. Factor V [place] mutation, chronic, active -patient is to be taking warfarin 5 mg daily, INR is 1.1. -the patient has elevated D-dimer at 496 in the setting of multiple falls. -ordered enoxaparin 1 milligram/kilogram twice daily -will need to confirm medication regimen with the family as well as patient adherence to medication use. The patient is admitted to the hospital due to the severity of his symptoms and risk for complications adverse events. The patient is admitted as an inpatient with expected length of stay to be greater than 2 midnights. Time Spent With Patient Time with patient: 25 - 35 minutes Scores GCS [place] coma scale eye opening: None [place] coma scale verbal response: Sounds Gur[place]reet coma scale motor response: Normal flexion [place] coma scale total score: 7
[2019-03-11] MEDS: SODIUM CHLORIDE 0.9% 1,000 ML 100 ML IV ×2 (01:31→12:13)
[2019-03-11 02:03] LABS: Prolactin 23.9 ng/mL (3.7-17.9)
--- NOTE | 2019-03-11 02:29 | DI.MRI.S_ITS ---
PROCEDURE: MR HEAD/BRAIN WO CON INDICATIONS: AMS, R/O CVA TECHNIQUE: Non-contrast axial T1 spin echo, axial T2 fast spin echo, sagittal and axial FLAIR, coronal T2 fast spin echo, axial gradient echo, axial diffusion and ADC through the brain. COMPARISON: [facility], CT, CT HEAD/BRAIN WO CON, 03/10/2019, 20:22. FINDINGS: Image quality: This examination is limited by involuntary motion artifact. CSF spaces: Ventricles appear symmetric in size and shape. Basal cisterns are patent. No extra-axial fluid collections. Brain: No intracranial bleeds or mass effects. There is cerebral volume loss for age. There are periventricular and deep white matter chronic small vessel ischemic changes. Brainstem appears normal. Diffusion-weighted images show no acute ischemic insults. No chronic ischemic insults. Normal intravascular flow voids are present. Skull and face: Calvarial bone marrow is normal in signal. Orbits are normal. Sinuses: Sinuses and mastoids are clear. IMPRESSION: Limited study demonstrating no findings of acute or subacute infarction. Note is made of age-appropriate brain parenchymal volume loss and chronic small vessel ischemic changes. Dictated by: Demond Vang M.D. on 03/11/2019 at 11:57 Approved by: Demond Vang M.D. on 03/11/2019 at 11:58
[2019-03-11] MEDS: ENOXAPARIN 80 MG/0.8 ML SYRINGE 70 MG SUBCUT ×2 (02:32→21:24)
--- NOTE | 2019-03-11 04:03 | PC.NURSE ---
Pt admitted at 0030 from ED. Admitted nonreponsive to painful stimuli, touch. Dolls eyes at admit. Pt post fall with head strike at home, on warfarin fro DVT and hx of Factor 5 Leiden. Gave first dose of enoxaparin per order Head CT negative for bleed. Pt with slightly deformed left wrist in ED, xray negative for fracture. Pt lst used ETOH 3 days ago/heavy drinker, current smoker. No family accompanying pt to floor, admit assessment not yet complete, await until family available to provide further info. [facility] emergency contact info. Pt with dx dementia and profound owing per ED report, UTI found on admit, on Levofloxin IV. Prolactin level elevated, suspect pt had seizure, on seizure precautions. Aspiration precautions. At around 0330 pt awoke, answering appropriate birthday, name, following some commands. Pt making constant attmepts to get OOB, Not redirectable. Provider notified. CIWA protocol initiated. On tele in NSR, with 1st degree AV block and RBB. Lopez patent for urinary retention. maintain bed alarm
[2019-03-11] MEDS: LORazepam 2 MG/ML INJ IV ×4 (05:11→19:27)
[2019-03-11 07:11] LABS: Add Manual Diff / Slide Review NO; Basophils Absolute Auto 0 /uL (0-100); Basophils Percent Auto 0.3 % (0-2); Eosinophils Absolute Auto 100 /uL (0-450); Eosinophils Percent Auto 1.6 % (2-4); Hematocrit 36.9 % (41-53); Hemoglobin 12.7 g/dL (13.5-17.5); Lymphocytes Absolute Auto 1200 /uL (1100-4500); Lymphocytes Percent Auto 15.3 % (25-40); Mean Corpuscular HGB Conc 34.3 % (30-36); Mean Corpuscular Hemoglobin 31.8 PG (26-34); Mean Corpuscular Volume 92.7 fL (80-100); Monocytes Absolute Auto 700 /uL (0-900); Monocytes Percent Auto 9.6 % (3-14); Neutrophils Absolute Auto 5600 /uL (1500-7000); Neutrophils Percent Auto 73.2 % (50-75); Platelet Count 170 X10^3/uL (150-400); Red Blood Cell Count 3.98 X10^6/uL (4.5-5.9); Red Cell Distribution Width 13.7 % (11.6-14.8); White Blood Cell Count 7.7 X10^3/uL (4.5-11.0)
[2019-03-11 07:18] LABS: Blood Urea Nitrogen 24 mg/dL (9-20); Calcium 8.9 mg/dL (8.4-10.2); Carbon Dioxide 21 mmol/L (22-32); Chloride 112 mmol/L (98-107); Estimated Glomerular Filt Rate 45.3 mL/min (>60); Glucose 76 mg/dL (80-110); HEMOLYSIS < 15 (0-50); Potassium 3.9 mmol/L (3.4-5.1); Sodium 141 mmol/L (137-145)
--- NOTE | 2019-03-11 09:01 | PC.NURSE ---
Addendum entered by Reymundo Combs CNA 03/11/19 09:04: instead of abnormal breathing its apneic breathing. Original Note: Pt. is sleeping and breathing slow, has an abnormal breathing pattern O2 @ 96% and cont. puls OX on left index
--- NOTE | 2019-03-11 10:38 | CM.DANOTE ---
Addendum entered by Amber Barbosa R.N. 03/11/19 16:09: Met with Abbie, patient's , daughter, Anabelle, was also present. stated, her is a retired vetrinarian, and used to take care of the large animals on farms on [facility]. She mentioned that her 's dementia had gotten worse after cardiac surgery. She stated, he's not normally like this, that fall took a lot out of him. She had also mentioned, my really doesn't have an alcohol problem, he had between 3-6 beers a day, and I took it away from him about 3 days ago. denies that has gone through any withdrawals. Went over Medicare choice list, she understands that patient would need to be here until the , due to meeting Medicare criteria. She is leaning towards [facility], since they have private rooms. Will continue to follow and be in touch with regarding patient's condition. He continues to be restless at times. Original Note: DCP: Case received, EMR reviewed and spoke with patient's , Abbie, over phone. Confirmed her phone number, is: [phone]. Introduced self and role. Was able to obtain baseline activity level of patient at home, as well as other health history information from her. DCP template/assessment, completed with information currently available. Patient is a 78 year old male who admitted early this morning to the care of the hospitalist team. PCP: Dr. Queen. Payer: confirmed: Medicare/[employer]. Patient was brought to the emergency room via ambulance secondary to a fall that occurred at home. According to recent note, patient has had a few falls within the fast few days. He resides in [place] with his , who is Abbie. Patient has history of dementia, as well as acute use of alcohol. Patient is here on CIWA protocol, and sleeping, for he was given Ativan for agitation. This case mgr had attempted to reach with numbers on face sheet. Her home number, no longer in use. Verified her number, after nurse, Suki, was able to contact, of [phone]. goes by the name, Abbie. was able to give information to this associate merchandise planner regarding patient, over the phone. Patient has had a few falls at home lately. stated, he usually does this when he ends up with an infection. Asked her about the severity of his dementia, as far as any concerns, such as elopement. stated, he has not gotten lost, he usually walks about 2 miles, then returns home. Abbie confirmed that he does not use any DME supplies. She verbally stated that she is patient's POA. Noticed someone by the name of Anabelle on face sheet. stated that Anabelle is their daughter, is disabled, and lives with them. She mentioned that she has another daughter, Amber, who lives next door. Discussed patient's alcohol use with . stated that he has been drinking, but she took the alcohol away from him a couple of days ago. He mentioned that her and her daughter had gotten into an argument, for her daughter stated that a little alcohol wouldn't hurt him. has been looking into memory care facilities for patient. She stated, she can't afford 6-7000.00 a month, but is looking into home place, [place], for she knows the chiropractic practice manager. He is on a waiting list. Discussed potential for half-way, once patient is stable. He is confirmed inpatient per Scott, in [place]. feels that skilled would be a good idea. Discussed preferences, stated, what ever is the closest. She does know that this will depend on his medical and behavioral stability. She will come by later today, and this case mgr can provide her with Medicare choice list. At this time, patient will be having an MRI. He had been getting 1:1 sitter prior to this morning, secondary to agitation. P: DCP to continue to follow closely, and will attempt to meet with later. Amber Barbosa RN/Scraper Operator
--- NOTE | 2019-03-11 17:04 | PM.EVENT ---
Event Note Date Patient Seen: 03/11/19 Event Note: The Patient is a 78 y/o male with a history of dementia, DVT/Factor V leiden on coumadin, frequent falls, etoh dependence who was admitted for falls. The patient became agitated last night requiring ativan. He was sedated this morning and recieved more ativan for his MRI. The patient is currently sedated, minimally arousable and unable to provide any further history. By report the patient has been drinking for some time. He has had gait disturbance before admission. He was sleeping most of the day prior to admission which is unusual for him. The patient had a CT of the head which was negative, MRI of the brain which was negative. Given his drinking history their is concern for cerebellar ataxia wernicke's, korsakoff's as well. Patient will be started on a banana bag, IV fluids with glucose and continue the CIWA protocol. He will need to be evaluated by PT/OT when awake and coherent.
[2019-03-11] MEDS: DEXTROSE 5%-0.9% NS 1,000 ML 100 ML IV (17:54)
[2019-03-11] MEDS: MAGNESIUM SULFATE 2 GM, FOLIC ACID 1 MG, THIAMINE 100 MG, MULTIVITAMIN 10 ML in SODIUM ... IV (17:55)
[2019-03-11] MEDS: levoFLOXacin 250 MG/50 ML PIGGYBACK 50 MG IV (21:25)
[2019-03-12] VITALS (8 sets, daily range): BP systolic 126–144; BP diastolic 84–101; PULSE 70–107; RESP 16–20; TEMP 36.3–37.4; O2SAT 95–100; BMI 25.8
[2019-03-12] MEDS: DEXTROSE 5%-0.9% NS 1,000 ML 100 ML IV ×2 (04:29→15:42)
[2019-03-12 05:09] LABS: Add Manual Diff / Slide Review NO; Basophils Absolute Auto 0 /uL (0-100); Basophils Percent Auto 0.3 % (0-2); Eosinophils Absolute Auto 0 /uL (0-450); Eosinophils Percent Auto 0.4 % (2-4); Hematocrit 40.5 % (41-53); Hemoglobin 13.6 g/dL (13.5-17.5); Lymphocytes Absolute Auto 800 /uL (1100-4500); Lymphocytes Percent Auto 9.5 % (25-40); Mean Corpuscular HGB Conc 33.6 % (30-36); Mean Corpuscular Hemoglobin 31.4 PG (26-34); Mean Corpuscular Volume 93.2 fL (80-100); Monocytes Absolute Auto 900 /uL (0-900); Monocytes Percent Auto 10.1 % (3-14); Neutrophils Absolute Auto 7000 /uL (1500-7000); Neutrophils Percent Auto 79.7 % (50-75); Platelet Count 185 X10^3/uL (150-400); Red Blood Cell Count 4.35 X10^6/uL (4.5-5.9); Red Cell Distribution Width 13.2 % (11.6-14.8); White Blood Cell Count 8.8 X10^3/uL (4.5-11.0)
[2019-03-12 05:10] LABS: INR 1.1 (0.9-1.3)
[2019-03-12 05:16] LABS: Alanine Aminotransferase 22 IU/L (21-72); Albumin 3.6 g/dL (3.5-5.0); Albumin Globulin Ratio 1.2 (1.0-2.8); Alkaline Phosphatase 81 U/L (38-126); Aspartate Aminotransferase 29 IU/L (17-59); BUN Creatinine Ratio 13.6 (6-22); Bilirubin Total 0.9 mg/dL (0.2-1.3); Blood Urea Nitrogen 15 mg/dL (9-20); Calcium 9.1 mg/dL (8.4-10.2); Carbon Dioxide 22 mmol/L (22-32); Chloride 109 mmol/L (98-107); Estimated Glomerular Filt Rate > 60.0 mL/min (>60); Glucose 107 mg/dL (80-110); HEMOLYSIS < 15 (0-50); Sodium 140 mmol/L (137-145); Total Protein 6.6 g/dL (6.3-8.2)
--- NOTE | 2019-03-12 05:51 | PC.NURSE ---
Dx dementia, altered mental status. +UTI, on Levofloxacin. MRI and head CT negative for pathologies. Pt alert to voice and touch overnight. Hx heavy drinking up to 6 beers/days, last per 4 days ago. CIWA protocol active, pt scored 16 at 1800 last shanon, given 1mg IV ativan. Pt respirations regular, o2 sat on room air in mid 90's. Pt increasingly agitated over course of night, mild tremors felt, not redirectable. Fall risk, on anticoagulants for Factor 5 Leiden and hx DVTs, bed alarm on, fall precautions in place. On tele in NSR with 1st degree AV block, occ PVCs. Seizure precautions. Left wrist xray in ED on 03/10, left wrist now with swelling. Warm to touch, pulse present. Monitor for increased swelling. Plan to discharge to SNF in [place].
[2019-03-12] MEDS: ENOXAPARIN 80 MG/0.8 ML SYRINGE 70 MG SUBCUT ×2 (09:01→20:17)
--- NOTE | 2019-03-12 09:54 | PC.NURSE ---
Pt becoming increasingly agitated and restless. Not orientated, when asked where he was he stated beep beep beep. While trying to get out of bed I asked where he was going and he responded [place]
[2019-03-12] MEDS: LORazepam 2 MG/ML INJ IV ×5 (10:00→20:17)
--- NOTE | 2019-03-12 11:15 | PC.NURSE ---
Pt becoming increasingly agitated, pulling at lines, and appears to be having mild visual hallucinations, pointing into the air in front of him followed by word salad.
--- NOTE | 2019-03-12 13:59 | PC.NURSE ---
Pt resting quietly in bed, he is responding to voice, however still unable to have coherent conversation.
--- NOTE | 2019-03-12 14:17 | DIET.PN ---
Dietary Progress Note Assessment: 78y M admitted for head injury, UTI, nonresponsive, possibly in etoh withdrawl r/t etoh dependence. This RD unable to collect nutrition hx as pt sleeping all day and no family present. Pt has not eaten x2d. HT: 162cm WT: 67.9kg BMI: 25.9 Labs: INR 1.1, CR 1.5, GFR 45.9 MNA: not able to collect Ronnie: 13 Interventions: recc ONS enlive bid until POs >75% Diet Order: EER: 1800kcal, 75g PRO (1.1g/kg), 2L fluids Monitoring/Evaluations: I&Os
--- NOTE | 2019-03-12 14:28 | CM.DPC ---
DCP: continued: Case received and discussed in Team Rounds. Dr. Hester confirmed that pt is in acute alcohol withdrawal with his having removed all alcohol (reported to be 3-6 beers a day) 3 days before admission. CIWA has been dropping. (03/11: 20 to 16. 03/12 at 1130 to 10). PT and OT are pending once pt is stable for this. Colleague Amber states in her note of 03/11 that pt is on the wait list for [facility]. A snf discussion was started by Amber but no definitive plan at this point. More should be known as pt stabilizes and therapists become involved. Will be following.
--- NOTE | 2019-03-12 17:46 | PM.PN.1 ---
Subjective Subjective Interval history: Quinton Joe is a 78-year-old male with a past medical history significant for dementia, DVT and Factor V leiden who presented for generalized weakness and was found to be in acute alcohol withdrawal with DTs. The patient is lying in bed and in no acute distress. He continues to be agitated and have high CIWA scores. His last CIWA was a 13. He is receiving Ativan for alcohol withdrawal and plan to start Librium taper over the next several days. He mumbles and is incomprehensible and is unable to converse effectively. He appears to be actively hallucinating pointing at the ceiling and his eyes darting across the room without anyone there. He is incontinent but voiding and eliminating without difficulty. Exam Vital Signs (past 8 hours): - 03/12/19 13:54 03/12/19 15:56 Temperature 97.4 F L 99.4 F Pulse Rate 70 83 Respiratory Rate 16 16 Blood Pressure 140/86 141/88 H Pulse Oximetry 97 100 Oxygen Delivery Method Room Air Oxygen Flow Rate 0 Narrative Exam Narrative: General: Elderly male lying in bed, agitated, appears to be actively hold stating, mumbling with incomprehensible language and unable to converse effectively. HEENT: Normocephalic, atraumatic. External ears without defect. Pupils equal, round, and reactive to light. Anicteric sclerae, moist conjunctivae, and no lid lag. Neck: Supple with full range of motion. No jugular venous distension. No lymphadenopathy or thyromegaly. Cardiovascular: Regular rhythm, tachycardic, without murmurs, rubs, or gallops appreciated. Pulmonary: Clear to auscultation bilaterally without crackles, wheezes, or rhonchi. Normal respiratory effort with no use of accessory muscles. Abdomen: Soft, bowel sounds present, appears to be nontender, nondistended. No hepatosplenomegaly or masses appreciated. Extremities: No clubbing or cyanosis. Mild swelling of left wrist and guarding left arm. Skin: Normal temperature, turgor, and texture; no rash, ulcers, or subcutaneous nodules appreciated. Neurological: Cranial nerves grossly intact. Psychiatric: Agitated with active delirium tremens. Objective Labs Result Diagrams: 03/13/19 05:31 03/13/19 05:31 Labs: Laboratory Results - last 24 hr 03/12/19 03/12/19 03/12/19 04:30 04:30 04:30 WBC 8.8 RBC 4.35 L Hgb 13.6 Hct 40.5 L MCV 93.2 MCH 31.4 MCHC 33.6 RDW 13.2 Plt Count 185 Neut % (Auto) 79.7 H Lymph % (Auto) 9.5 L [place] % (Auto) 10.1 Eos % (Auto) 0.4 L Baso % (Auto) 0.3 Neut # (Auto) 7000 Lymph # (Auto) 800 L [place] # (Auto) 900 Eos # (Auto) 0 Baso # (Auto) 0 PT 13.0 H INR 1.1 Sodium 140 Potassium 4.0 Chloride 109 H Carbon Dioxide 22 BUN 15 Creatinine 1.10 Estimated GFR > 60.0 BUN/Creatinine Ratio 13.6 Glucose 107 Calcium 9.1 Total Bilirubin 0.9 AST 29 ALT 22 Alkaline Phosphatase 81 Total Protein 6.6 Albumin 3.6 Globulin 3.0 Albumin/Globulin Ratio 1.2 Assessment & Plan Assessment & Plan narrative: Quinton Joe is a 78-year-old male with a past medical history significant for dementia, DVT and Factor V leiden who presented for generalized weakness and was found to be in acute alcohol withdrawal with DTs. 1. Acute urinary tract infection, present on admission. Active. -Lopez catheter placed to obtain urine sample and related to obtundation from sedatives. -Urine culture grew Enterococcus faecalis sensitive to levofloxacin. -Received levofloxacin 500 mg IV x1 in ED. Continue levofloxacin increased to 750 mg daily (CHANDLER resolved) to complete 5 days total. 2. Acute alcohol withdrawal with delirium tremens, secondary to alcohol dependence and abuse, present on admission. Active. -EtOH level<10 with reports of patient having no alcoholic beverages for the last 3-4 days. -No known history of alcohol withdrawal, DTs or alcohol withdrawal seizures. -CIWA protocol initiated. Patient with high CIWA scores 13-16. Plan to start slow Librium taper over the next several days. -Continue thiamine 100 mg and vitamin daily when appropriate for PO intake. 3. Metabolic encephalopathy in setting of dementia, acute on chronic, present on admission. Active. -Likely multifactorial and secondary to acute delirium tremens and UTI. Also possibly advancing dementia. Closed head injury with hemorrhage and CVA ruled out. -CT brain without contrast demonstrated no acute intracranial process. -MRI stroke protocol did not demonstrate any acute intracranial process with age-appropriate brain parenchymal volume loss and chronic small vessel ischemic changes. -Continue treating alcohol withdrawal and UTI as above. -Patient has history of dementia unclear if he has an underlying behavioral disturbance but citalopram, buspirone, olanzapine and quetiapine are listed as home medications. Need to confirm medication regimen with the family, as well as, patient adherence to medication use. 4. Acute kidney injury, present on admission. Resolved. -Initial creatinine 1.7. Unclear baseline. Creatinine now 1.10. -Avoid nephrotoxic agents. -Continue to monitor renal function closely. 5. Coronary artery disease, chronic, present on admission. Stable. -Patient has reported no chest pain or difficulty breathing to his . -EKG demonstrated sinus bradycardia/sinus rhythm with first-degree AV block with incomplete right bundle without acute ischemic changes. -Patient with hypotensive episode in the ED likely due to dehydration which resolved with fluid resuscitation. -continue cardiac medications including aspirin 81 mg daily and metoprolol succinate 12.5 mg daily once med regimen confirmed and patient is appropriate for PO intake. -Continue to monitor closely on telemetry. 6. Factor V Mcgrew mutation, chronic, present on admission. Stable. -Continue to monitor warfarin 5 mg daily. INR is trending down now 1.1. -Patient has elevated D-dimer at 496 in the setting of multiple falls. -Continue therpeutic Lovenox 70 mg twice daily. -Need to confirm medication regimen with the family as well as patient adherence to medication use. 7. BPH, chronic, present on admission. Stable. -Continue tamsulosin 0.4 mg daily when appropriate for PO intake. Disposition: Patient likely to discharge in next several days to a fdc facility for continued to rehabilitiation once through alcohol withdraw. Quality VTE Deep Vein Thrombosis/Pulmonary Embolism Present on Admission: No
[2019-03-12] MEDS: levoFLOXacin 250 MG/50 ML PIGGYBACK 50 MG IV (20:17)
[2019-03-13] VITALS (9 sets, daily range): BP systolic 118–148; BP diastolic 75–98; PULSE 78–96; RESP 15–24; TEMP 36.2–38.3; O2SAT 94–99
[2019-03-13] MEDS: DEXTROSE 5%-0.9% NS 1,000 ML 100 ML IV ×2 (00:27→10:32)
--- NOTE | 2019-03-13 03:10 | PC.NURSE ---
Pt score assessment on CIWA protocol of 13 at 2039. Protocol for assessment frequency q2hrs. Pt appropriately sedated per protocol. CIWA score not done at beginning of this RN shift as pt not able to communicate needs/symptoms. Seizure pads in place, CMP ordered for 499, HOB elevated >/= 15 degrees, fall precautions in place. Will offer water/ensure at bedside at pt alertness level allows to do so safely. Will rescore CIWA when pt alertness/awake level increases. Pt on tele in NSR with 1st degree AV block and BBB.
--- NOTE | 2019-03-13 04:05 | PC.NURSE ---
Addendum entered by Lianna Trammell R.N. 03/13/19 05:33: Recheck VS at 0500. temp 99.8 BP 136/88, HR 95, 94% on room air, RR 23. Pt arousable to touch, turns. Mild sedation persists post IV ativan for previous CIWA score of 13 at 2100. Repeat CIWA score not done due to level of consciousness. Pt appears restful, relaxed in bed. On levofloxacin for UTI. Original Note: Pt temp 100.9, BP 135/90, HR 96, o2 sat on room air 97%, RR 18. Elevated temp reported to Hospitalist[facility]. Will recheck VS in one hour. Pt mildly sedated mumbling words. Assessed for pain/symptoms, pt unable to respond. Pt opening eyes spontaneously, arousable with turn in bed.
[2019-03-13 06:03] LABS: Add Manual Diff / Slide Review NO; Basophils Absolute Auto 0 /uL (0-100); Basophils Percent Auto 0.2 % (0-2); Eosinophils Absolute Auto 0 /uL (0-450); Eosinophils Percent Auto 0.2 % (2-4); Hematocrit 38.3 % (41-53); Hemoglobin 12.9 g/dL (13.5-17.5); Lymphocytes Absolute Auto 500 /uL (1100-4500); Lymphocytes Percent Auto 6.1 % (25-40); Mean Corpuscular HGB Conc 33.8 % (30-36); Mean Corpuscular Hemoglobin 31.5 PG (26-34); Mean Corpuscular Volume 93.2 fL (80-100); Monocytes Absolute Auto 800 /uL (0-900); Monocytes Percent Auto 9.4 % (3-14); Neutrophils Absolute Auto 7500 /uL (1500-7000); Neutrophils Percent Auto 84.1 % (50-75); Platelet Count 178 X10^3/uL (150-400); Red Blood Cell Count 4.11 X10^6/uL (4.5-5.9); Red Cell Distribution Width 13.3 % (11.6-14.8)
[2019-03-13 06:16] LABS: Alanine Aminotransferase 13 IU/L (21-72); Albumin 3.3 g/dL (3.5-5.0); Albumin Globulin Ratio 1.2 (1.0-2.8); Alkaline Phosphatase 78 U/L (38-126); Aspartate Aminotransferase 29 IU/L (17-59); Blood Urea Nitrogen 12 mg/dL (9-20); Carbon Dioxide 19 mmol/L (22-32); Chloride 110 mmol/L (98-107); Estimated Glomerular Filt Rate > 60.0 mL/min (>60); Globulin 2.8 g/dL (1.7-4.1); Glucose 122 mg/dL (80-110); HEMOLYSIS < 15 (0-50); Magnesium 1.9 mg/dL (1.6-2.3); Potassium 3.6 mmol/L (3.4-5.1); Sodium 141 mmol/L (137-145); Total Protein 6.1 g/dL (6.3-8.2)
[2019-03-13 06:33] LABS: Procalcitonin 0.11 ng/mL (<0.5)
[2019-03-13 06:42] LABS: TSH w/ Reflex to FT4 1.58 uIU/mL (0.47-4.68)
[2019-03-13] MEDS: ENOXAPARIN 80 MG/0.8 ML SYRINGE 70 MG SUBCUT ×2 (08:26→21:58)
--- NOTE | 2019-03-13 08:42 | PM.PN.1 ---
Subjective Subjective Date Patient Seen: 03/13/19 Interval history: Quinton Joe is a 78-year-old male with a past medical history significant for dementia, DVT and Factor V leiden who presented for generalized weakness and was found to have UTI and be in acute alcohol withdrawal with DTs. The patient is lying in bed and is very rigid with shut eyes, and clinching mouth, hands and body. He is non-responsive except for an occasional incomprehensible mumble. The patient is not able to be scored on CIWA scale as patient will not respond (oddly appears awake just unable too due to rigidity and clinching). Concerned for EPS syndrome with patient's use of olanzapine and seroquel outpatient. Received cogentin 1 mg IV with ability to move arms, mouth and open eyes within 10 minutes of receiving the dose. Discussed case with Dr. Li of psychiatry who recommended continue Cogentin 0.5 mg twice daily and scheduled ativan so that patient receives benzodiazipine to treat alcohol withdrawal but ensure that he does not get overly sedated and titrate off as able. Patient is NPO due to unresponsiveness and delerium. Plan to switch antibiotic from levofloxacin even though enterococcus is sensitive it may also cause encephalopathy and ampicillin is a 1st line agent. He is incontinent but voiding and eliminating without difficulty. Exam Vital Signs (past 8 hours): - 03/13/19 04:00 03/13/19 05:05 Temperature 100.9 F H 99.8 F H Pulse Rate 96 H 95 H Respiratory Rate 18 23 Blood Pressure 135/90 136/98 H Pulse Oximetry 97 94 Oxygen Delivery Method Room Air Oxygen Flow Rate 0 Narrative Exam Narrative: General: Elderly male lying in bed, unresponsive but hemodynamically stable, rigid and clinching mouth and body. HEENT: Normocephalic, atraumatic. External ears without defect. Neck: No jugular venous distension. No lymphadenopathy or thyromegaly. Cardiovascular: Regular rhythm and rate without murmurs, rubs, or gallops appreciated. Pulmonary: Clear to auscultation bilaterally without crackles, wheezes, or rhonchi. Normal respiratory effort with no use of accessory muscles. Abdomen: Soft, bowel sounds present, appears to be nontender, nondistended. No hepatosplenomegaly or masses appreciated. Extremities: No clubbing or cyanosis. Swelling of left wrist and boggy knees. Skin: Normal temperature, turgor, and texture; no rash, ulcers, or subcutaneous nodules appreciated. Psychiatric: Patient is unresponsive but appears as though he is awake but unable to open eyes and clinching mouth and extremities possible EPS syndrome. Objective Labs Result Diagrams: 03/13/19 05:31 03/14/19 05:26 Labs: Laboratory Results - last 24 hr 03/13/19 03/13/19 03/13/19 05:31 05:31 05:31 WBC 9.0 RBC 4.11 L Hgb 12.9 L Hct 38.3 L MCV 93.2 MCH 31.5 MCHC 33.8 RDW 13.3 Plt Count 178 Neut % (Auto) 84.1 H Lymph % (Auto) 6.1 L [place] % (Auto) 9.4 Eos % (Auto) 0.2 L Baso % (Auto) 0.2 Neut # (Auto) 7500 H Lymph # (Auto) 500 L [place] # (Auto) 800 Eos # (Auto) 0 Baso # (Auto) 0 Sodium 141 Potassium 3.6 Chloride 110 H Carbon Dioxide 19 L BUN 12 Creatinine 1.00 Estimated GFR > 60.0 BUN/Creatinine Ratio 12.0 Glucose 122 H Calcium 9.0 Magnesium 1.9 Total Bilirubin 1.0 AST 29 ALT 13 L Alkaline Phosphatase 78 Total Protein 6.1 L Albumin 3.3 L Globulin 2.8 Albumin/Globulin Ratio 1.2 Procalcitonin 0.11 TSH 03/13/19 05:31 WBC RBC Hgb Hct MCV MCH MCHC RDW Plt Count Neut % (Auto) Lymph % (Auto) [place] % (Auto) Eos % (Auto) Baso % (Auto) Neut # (Auto) Lymph # (Auto) [place] # (Auto) Eos # (Auto) Baso # (Auto) Sodium Potassium Chloride Carbon Dioxide BUN Creatinine Estimated GFR BUN/Creatinine Ratio Glucose Calcium Magnesium Total Bilirubin AST ALT Alkaline Phosphatase Total Protein Albumin Globulin Albumin/Globulin Ratio Procalcitonin TSH 1.58 Assessment & Plan Assessment & Plan narrative: Quinton Joe is a 78-year-old male with a past medical history significant for dementia, DVT and Factor V leiden who presented for generalized weakness and was found to be in acute alcohol withdrawal with DTs. 1. Acute urinary tract infection, present on admission. Active. -Lopez catheter placed to obtain urine sample and related to obtundation from sedatives. -Urine culture grew Enterococcus faecalis resistant to tetracyclines. -Received levofloxacin 500 mg IV x1 in ED. Discontinued levofloxacin and switched to 1st line treatment for Enterococcus with ampicillin 2 g every 6 hours. 2. Acute alcohol withdrawal with delirium tremens, secondary to alcohol dependence and abuse, present on admission. Active. -EtOH level<10 with reports of patient having no alcoholic beverages for the last 3-4 days. -No known history of alcohol withdrawal, DTs or alcohol withdrawal seizures. -CIWA protocol initiated. Patient with high CIWA scores initially 13-16. Unable to perform CIWA score on patient due to unresponsiveness. Scheduled Ativan 0.5 mg every 8 hours to treat alcohol withdrawal and avoid over-sedation. Continue CIWA scoring if possible. -Continue thiamine 100 mg and vitamin daily if appropriate for PO intake. 3. Metabolic encephalopathy in setting of dementia, acute on chronic, present on admission. Active. -Likely multifactorial and secondary to acute delirium tremens and UTI. Also possibly advancing dementia. Closed head injury with hemorrhage and CVA ruled out. -CT brain without contrast demonstrated no acute intracranial process. -MRI stroke protocol did not demonstrate any acute intracranial process with age-appropriate brain parenchymal volume loss and chronic small vessel ischemic changes. -Continue treating alcohol withdrawal and UTI as above. -Patient has history of dementia unclear if he has an underlying behavioral disturbance but previous medications include citalopram and buspirone and current medications are olanzapine and quetiapine according to external medication history. Need to confirm medication regimen with the family, as well as, patient adherence to medication use. -Patient appears to have EPS syndrome with clenching of mouth, extremities and overall rigidity. Received Cogentin 1 mg a with improvement. Discussed case with Psychiatry, Dr. Li, who recommends continuing Cogentin 0.5 mg twice daily and scheduling Ativan to treat alcohol withdrawal and not overly sedate patient. May need formal psych evaluation when available. 5. Acute kidney injury, present on admission. Resolved. -Initial creatinine 1.7. Unclear baseline. Creatinine now 1.10. -Avoid nephrotoxic agents. -Continue to monitor renal function closely. 6. Coronary artery disease, chronic, present on admission. Stable. -Patient has reported no chest pain or difficulty breathing to his . -EKG demonstrated sinus bradycardia/sinus rhythm with first-degree AV block with incomplete right bundle without acute ischemic changes. -Patient with hypotensive episode in the ED likely due to dehydration which resolved with fluid resuscitation. -Continue to monitor closely on telemetry. -Updated medication list was provided by spouse and based on external medication history it does not appear that patient is on aspirin or metoprolol any longer. 7. Factor V Chris mutation, chronic, present on admission. Stable. -Patient is usually on warfarin 5 mg daily. Patient has elevated D-dimer at 496 in the setting of multiple falls. -CT brain did not demonstrate any acute intracranial abnormalities. -Continue therpeutic Lovenox 70 mg twice daily until able and appropriate for PO intake. -Need to confirm medication regimen with the family as well as patient adherence to medication use. 8. BPH, chronic, present on admission. Stable. -Continue tamsulosin 0.4 mg daily if able and appropriate for PO intake. Disposition: Patient will undoubtedly need custodial facility for continued rehabilitiation once he is medically treated for UTI, alcohol withdrawal, and EPS syndrome. Quality VTE Deep Vein Thrombosis/Pulmonary Embolism Present on Admission: No
--- NOTE | 2019-03-13 11:26 | PC.NURSE ---
Pt is somulent, given Ativan last evening. The last dose given was at 2100. Pt will wake up and look around but his speech is garbled. VSS and rr regular. He has been incontinent x2 and repostioned each time. Skin with some bruising and abrasions. He is resting comfortably at this time.
[2019-03-13] MEDS: BENZTROPINE 2 MG/2 ML AMPUL 1 MG IV (12:27)
--- NOTE | 2019-03-13 13:01 | PC.NURSE ---
Pt given 1mg of cogentin and he is waking up more. Order per . Will continue to watch patient through my shift.
--- NOTE | 2019-03-13 15:27 | PC.NURSE ---
Pts medication list updated. Family here to visit patient. He does have a hx of gout and his knees are swollen. Did not give pt his po morning meds as he is not swallowing well. Pt has garbled speech. Ativan also not given at 1400,pt is sleeping and family is in room.
--- NOTE | 2019-03-13 15:54 | CM.DPC ---
DCP: Continued: Spoke with patients Abbie (DPOA) at bedside, Patient is not oriented due to alcohol withdrawals. Patients stated that she brought patients home medication list in for review for Dr. wyatt and given to the patients nurse. PT and OT evaluations are pending once patient is stable enough to participate. D/C plan was discussed with DPOA () and depending on PT and OT evaluations. If SNF is recommended patients family would like him to go to [facility]. Called and sent Clinicals for review to [facility] for review 03/13/2019. Katiuska Strickland RN
[2019-03-13] MEDS: LORazepam 2 MG/ML INJ 0.5 MG IV ×2 (17:12→23:14)
[2019-03-13 17:33] LABS: Uric Acid 6.7 mg/dL (3.5-8.5)
--- NOTE | 2019-03-13 20:07 | PC.NURSE ---
Assumed care of pt at 1500. Pt obtunded, only moans to painful stimuli. MD aware, Per MD continue to given ativan as ordered. Medicated per AUG. Family at bedside left at approx 1645. This investment underwriter called and spoke to Abbie. Per Abbie pt has been clinically diagnosed with Bipolar and Dementia by Dr. Acacia Muhammad but is no longer under her care. Abbie also states pt was alert and oriented with clear speech prior to admission and has only taken Seroquel within the last few months with no possibility of suicide attempt or overdose of medications. This information given to Dr. Hester.
[2019-03-13] MEDS: levoFLOXacin 750 MG/150 ML PIGGYBACK 50 MG IV (21:54)
[2019-03-13] MEDS: BENZTROPINE 2 MG/2 ML AMPUL 0.5 MG IV (21:55)
[2019-03-14] VITALS (8 sets, daily range): BP systolic 125–163; BP diastolic 75–95; PULSE 70–86; RESP 18–24; TEMP 36.6–38.9; O2SAT 97–100
[2019-03-14] MEDS: ACETAMINOPHEN 650 MG SUPP PR (00:20)
[2019-03-14] MEDS: AMPICILLIN 2,000 MG in SODIUM CHLORIDE 0.9% 100 ML 200 ML IV ×4 (01:13→18:18)
[2019-03-14] MEDS: LORazepam 2 MG/ML INJ 0.5 MG IV (05:36)
[2019-03-14 05:51] LABS: Ammonia (NH3) < 9.0 umol/L (9-30)
[2019-03-14 05:52] LABS: BUN Creatinine Ratio 12.7 (6-22); Blood Urea Nitrogen 14 mg/dL (9-20); Calcium 9.3 mg/dL (8.4-10.2); Carbon Dioxide 23 mmol/L (22-32); Chloride 110 mmol/L (98-107); Estimated Glomerular Filt Rate > 60.0 mL/min (>60); Glucose 106 mg/dL (80-110); HEMOLYSIS < 15 (0-50); Potassium 3.6 mmol/L (3.4-5.1); Sodium 141 mmol/L (137-145)
--- NOTE | 2019-03-14 06:10 | PC.NURSE ---
Pt mostly not responsive, does not follow commands, cannot make needs known. While changing pt he finally spoke in garbled speech and kept repeating No; when asked his name he said Quinton followed by garbled speech. PERRLA CIWA=0-1 (unable to obtain accurate scale due to pt not being able to answer certain criteria) Pt had a huge loose BM overnight. IVF running as ordered, ABX given. Tele: NSR/1st AVB/BBB Turned and positioned q2h
--- NOTE | 2019-03-14 08:19 | P.PN_ITS ---
Subjective Subjective Date Patient Seen: 03/14/19 Interval history: Quinton Joe is a 78-year-old male with a past medical history significant for dementia, DVT and Factor V leiden who presented for generalized weakness and was found to have UTI and be in acute alcohol withdrawal with DTs. The patient is lying in bed and is more awake and alert. He is unable to converse effectively and has garbled speech and makes repetitive sounds and attempt to speak. Since starting Cogentin the patient is moving more freely and is not as rigid and is able to open his eyes. The patient's family presented late in the afternoon and the patient was more arousable and attempted to communicate some of which was comprehensible. He was able to sit up in bed and be fed a small amount which is the most progress he has made since admission. Per family report, the patient has mild dementia and is able to converse effectively at baseline with several word sentences. He drinks 2-5 to 6 beers a day and is not ?nice? when he drinks. He previously went through a very similar episode after a spinal surgery in which he was unresponsive and almost in a catatonic state for several weeks, a PEG tube was placed and his family took him home Against Medical Advice in an ambulance and his family continued to feed him throught the PEG tube at home and he eventually ?woke up.? His Abbie also mentions that he was recently being titrated off of olanzapine to quetiapine for reasons that are unclear. Exam Vital Signs (past 8 hours): - 03/14/19 04:00 Temperature 99 F Pulse Rate 72 Respiratory Rate 18 Blood Pressure 137/89 Pulse Oximetry 97 Oxygen Delivery Method Room Air Oxygen Flow Rate 0 Narrative Exam Narrative: General: Elderly male lying in bed, minimally responsive and incomprehensibl e/garbled language. HEENT: Normocephalic, atraumatic. External ears without defect. Neck: No jugular venous distension. No lymphadenopathy or thyromegaly. Cardiovascular: Regular rhythm and rate without murmurs, rubs, or gallops appreciated. Pulmonary: Clear to auscultation bilaterally without crackles, wheezes, or rhonchi. Normal respiratory effort with no use of accessory muscles. Abdomen: Soft, bowel sounds present, appears to be nontender, nondistended. No hepatosplenomegaly or masses appreciated. Extremities: No clubbing or cyanosis. Enlarged and boggy left wrist and left knee joint appears to be chronic and without erythema or significant edema. Skin: Normal temperature, turgor, and texture; no rash, ulcers, or subcutaneous nodules appreciated. Psychiatric: Minimally responsive and incomprehensible/garbled language. Repetitive sounds/palilalia. Mild rigidity. Objective Labs Result Diagrams: 03/15/19 09:17 03/15/19 09:17 Labs: Laboratory Results - last 24 hr 03/13/19 03/14/19 03/14/19 05:31 05:26 05:26 Sodium 141 Potassium 3.6 Chloride 110 H Carbon Dioxide 23 BUN 14 Creatinine 1.10 Estimated GFR > 60.0 BUN/Creatinine Ratio 12.7 Glucose 106 Uric Acid 6.7 Calcium 9.3 Magnesium 2.0 Ammonia < 9.0 L Assessment & Plan Assessment & Plan narrative: Quinton Joe is a 78-year-old male with a past medical history significant for dementia, DVT and Factor V leiden who presented for generalized weakness and was found to be in acute alcohol withdrawal with DTs. 1. Acute metabolic encephalopathy in setting of dementia, present on admission. Active. -Likely multifactorial and secondary to acute delirium from DT's and UTI and possibly withdrawal of antipsycholtics with EPS syndrome with rigidity and tardive dyskinesia improved with Cogentin. Closed head injury with hemorrhage and CVA ruled out. -CT brain without contrast demonstrated no acute intracranial process. -MRI stroke protocol did not demonstrate any acute intracranial process with age-appropriate brain parenchymal volume loss and chronic small vessel ischemic changes. -Continue treating alcohol withdrawal and UTI as above. -Patient has history of dementia unclear if he has an underlying behavioral disturbance but previous medications include citalopram and buspirone and current medications are olanzapine and quetiapine according to external medication history. Need to confirm medication regimen with the family, as well as, patient adherence to medication use. -Patient appears to have EPS syndrome with rigidity and clenching of mouth and extremities with repetitive sounds and tardive dyskinesia. Received Cogentin 1 mg a with improvement. Discussed case with Psychiatry, Dr. Li, who recommends continuing Cogentin 0.5 mg twice daily. 2. Acute urinary tract infection, present on admission. Active. -Lopez catheter placed to obtain urine sample and related to obtundation from sedatives. -Urine culture grew Enterococcus faecalis resistant to tetracyclines. -Received levofloxacin 500 mg IV x1 in ED. Discontinued levofloxacin and switched to 1st line treatment for Enterococcus with ampicillin 2 g every 6 hours to complete 5 days total. 3. Acute alcohol withdrawal with delirium tremens, secondary to alcohol dependence and abuse, present on admission. Resolved. -EtOH level<10 with reports of patient having no alcoholic beverages for 3-4 day s prior to admission. -No known history of alcohol withdrawal, DTs or alcohol withdrawal seizures. -CIWA protocol initiated. Patient with high CIWA scores initially 13-16. Unable to perform CIWA score on patient due to unresponsiveness. Scheduled Ativan 0.5 mg every 8 hours to treat alcohol withdrawal and slowly titrated off. -Continue thiamine 100 mg and vitamin daily if appropriate for PO intake. 1. Acute metabolic encephalopathy in setting of dementia, present on admission. Active. -Likely multifactorial and secondary to acute delirium from DT's and UTI and possibly withdrawal of antipsycholtics with EPS syndrome with rigidity and tardive dyskinesia improved with Cogentin. Closed head injury with hemorrhage and CVA ruled out. -CT brain without contrast demonstrated no acute intracranial process. -MRI stroke protocol did not demonstrate any acute intracranial process with age-appropriate brain parenchymal volume loss and chronic small vessel ischemic changes. -Continue treating alcohol withdrawal and UTI as above. -Patient has history of dementia unclear if he has an underlying behavioral disturbance but previous medications include citalopram and buspirone and current medications are olanzapine and quetiapine according to external medication history. Need to confirm medication regimen with the family, as well as, patient adherence to medication use. -Patient appears to have EPS syndrome with clenching of mouth, extremities and overall rigidity. Received Cogentin 1 mg a with improvement. Discussed case with Psychiatry, Dr. Li, who recommends continuing Cogentin 0.5 mg twice daily and scheduling Ativan to treat alcohol withdrawal and not overly sedate patient. May need formal psych evaluation when available. 5. Acute kidney injury, present on admission. Resolved. -Initial creatinine 1.7. Unclear baseline. Creatinine now 1.10. -Avoid nephrotoxic agents. -Continue to monitor renal function closely. 6. Coronary artery disease, chronic, present on admission. Stable. -Patient has reported no chest pain or difficulty breathing to his . -EKG demonstrated sinus bradycardia/sinus rhythm with first-degree AV block with incomplete right bundle without acute ischemic changes. -Patient with hypotensive episode in the ED likely due to dehydration which resolved with fluid resuscitation. -Continue to monitor closely on telemetry. -Updated medication list was provided by spouse and based on external medication history it does not appear that patient is on aspirin or metoprolol any longer. 7. Factor V [place] mutation, chronic, present on admission. Stable. -Patient is usually on warfarin 5 mg daily. Patient has elevated D-dimer at 496 in the setting of multiple falls. -CT brain did not demonstrate any acute intracranial abnormalities. -Continue therpeutic Lovenox 70 mg twice daily until able and appropriate for PO intake. -Need to confirm medication regimen with the family as well as patient adherence to medication use. 8. BPH, chronic, present on admission. Stable. -Continue tamsulosin 0.4 mg daily if able and appropriate for PO intake. Disposition: Patient will undoubtedly need [facility] facility for continued rehabilitiation once he is medically treated for UTI, alcohol withdrawal, and EPS syndrome. Quality VTE Deep Vein Thrombosis/Pulmonary Embolism Present on Admission: No
[2019-03-14] MEDS: ENOXAPARIN 80 MG/0.8 ML SYRINGE 70 MG SUBCUT ×2 (09:25→20:33)
[2019-03-14] MEDS: THIAMINE 100 MG in DEXTROSE 5 % IN WATER 50 ML 204 ML IV (09:25)
[2019-03-14] MEDS: BENZTROPINE 2 MG/2 ML AMPUL 0.5 MG IV ×2 (09:26→20:34)
--- NOTE | 2019-03-14 13:23 | PC.NURSE ---
Pt is somulent but has been a bit more awake after getting cogentin. He is to weak to get out of bed but will try to sit up. Attempted to give pt some ensure but he just kept it in his mouth for a bit and was able to swallow. At this time he is not interested in taking po. Medications not given to patient. He is being repositioned every two hours. His knee's are swollen but looking better than yesterday. His left knee and l.wrist bother him in particular, if we have to change his brief with movement. Pt had a large loose stool this am, will get and order for c.diff specimen per doctor next time he has a bowel movement. Pt has been incontinent of urine x2, urine does have a strong odor. He recently had his antibiotics changed. Temp of 99 earlier and now 98.8 after recheck
--- NOTE | 2019-03-14 15:10 | CM.DPC ---
DCP Cont: Per MD, pt continues to have some delirium and Ativan to be lowered and antipsychotics held for now after discussion with Psychiatrist. MD broadened pt's Abx to better cover and pt continues to still not be waking up much and hasn't eaten for a few days. MD plans to likely consult Psychiatrist again tomorrow (Friday) and allow for a few days to see if pt makes progress and improves, otherwise possible need for Goals of Care discussion if pt does not make improvements. PT/OT ordered but pt has not been able to participate in therapy yet. SW waiting to see if pt makes improvements and can begin participating in PT/OT eval before faxing clinicals to [facility] (pt[facility]). [facility] reviewing and following to see if pt is appropriate for SNF rehab and if they can accept. Plan: SW to follow closely tomorrow, Friday morning, to determine if pt progresses and improves and likely Psych Consult to determine any medication changes and possible need for Goals of Care discussion with MD and spouse. Gladys James MSW
--- NOTE | 2019-03-14 16:44 | PC.NURSE ---
Addendum entered by Sarah Pradhan R.N. 03/14/19 19:04: rounded and states no medications should be given if pt becomes restless. 1:1 sitter called for pt safety and fall prevention measures. Sitter now present at bedside. Pt cooperative with care but moving arms and legs about in bed. Addendum entered by Sarah Pradhan R.N. 03/14/19 16:49: Student Nurse participating in assessments and administrations. All care completed by student nurse done under supervision of this RN. Original Note: Assumed care of pt at 1500. Pt sleeping during bedside hand-off. Awakens spontaneously on approx 1600. Moving arms and legs independently. Able to state his birthday but speech is mostly garbled. Incontinent voids. Briefs changed. CPOX on 100% RA. Refuses to drink water from straw or Ensure from cup without straw. HOB 30 deg for aspiration precautions, Turning frequently for PIP. Seizure pads on bed per ciwa protocol. Suction is set-up. Bed alarm on. Door open for close monitoring.
[2019-03-14] MEDS: DEXTROSE 5%-0.9% NS 1,000 ML 100 ML IV (18:18)
--- NOTE | 2019-03-14 18:42 | PC.NURSE ---
Student Nurse Note: Patient awake and coherent enough to eat. Ate dessert only, with assistance from his and daughter. Under my supervision and assistance drank half an ensure and 200ml of water. Head of bed kept at 90 degrees during feeding and elevated at 45 degrees following.
--- NOTE | 2019-03-14 20:25 | PC.NURSE ---
Pt was restless and had facial grimacing prior to and during vitals as well as repositioning.
[2019-03-15] VITALS (8 sets, daily range): BP systolic 124–140; BP diastolic 75–98; PULSE 73–87; RESP 14–24; TEMP 36.9–39.2; O2SAT 92–100; BMI 26.1
[2019-03-15] MEDS: AMPICILLIN 2,000 MG in SODIUM CHLORIDE 0.9% 100 ML 200 ML IV ×5 (00:30→23:49)
[2019-03-15] MEDS: DEXTROSE 5%-0.9% NS 1,000 ML 100 ML IV (05:15)
[2019-03-15 09:31] LABS: Add Manual Diff / Slide Review NO; Basophils Absolute Auto 0 /uL (0-100); Basophils Percent Auto 0.2 % (0-2); Eosinophils Absolute Auto 100 /uL (0-450); Eosinophils Percent Auto 0.7 % (2-4); Hematocrit 36.5 % (41-53); Hemoglobin 12.4 g/dL (13.5-17.5); Lymphocytes Absolute Auto 600 /uL (1100-4500); Lymphocytes Percent Auto 8.6 % (25-40); Mean Corpuscular HGB Conc 33.8 % (30-36); Mean Corpuscular Hemoglobin 31.4 PG (26-34); Mean Corpuscular Volume 92.7 fL (80-100); Monocytes Absolute Auto 700 /uL (0-900); Monocytes Percent Auto 9.3 % (3-14); Neutrophils Absolute Auto 6000 /uL (1500-7000); Neutrophils Percent Auto 81.2 % (50-75); Platelet Count 173 X10^3/uL (150-400); Red Blood Cell Count 3.94 X10^6/uL (4.5-5.9); White Blood Cell Count 7.4 X10^3/uL (4.5-11.0)
[2019-03-15 09:42] LABS: Clostridium Difficile Tox PCR Negative for C. diff
[2019-03-15 09:43] LABS: Alanine Aminotransferase 34 IU/L (21-72); Albumin 3.1 g/dL (3.5-5.0); Albumin Globulin Ratio 1.1 (1.0-2.8); Alkaline Phosphatase 89 U/L (38-126); Aspartate Aminotransferase 48 IU/L (17-59); BUN Creatinine Ratio 15.6 (6-22); Blood Urea Nitrogen 14 mg/dL (9-20); Calcium 8.8 mg/dL (8.4-10.2); Carbon Dioxide 20 mmol/L (22-32); Chloride 112 mmol/L (98-107); Estimated Glomerular Filt Rate > 60.0 mL/min (>60); Globulin 2.9 g/dL (1.7-4.1); Glucose 108 mg/dL (80-110); HEMOLYSIS < 15 (0-50); Potassium 3.1 mmol/L (3.4-5.1); Sodium 141 mmol/L (137-145)
[2019-03-15 10:01] LABS: Procalcitonin 0.19 ng/mL (<0.5)
[2019-03-15 10:09] LABS: Magnesium 1.8 mg/dL (1.6-2.3)
--- NOTE | 2019-03-15 10:20 | P.PN_ITS ---
Subjective Subjective Date Patient Seen: 03/15/19 Interval history: Quinton Joe is a 78-year-old male with a past medical history significant for dementia, DVT and Factor V leiden who presented for generalized weakness and was found to have UTI and be in acute alcohol withdrawal with DTs. The patient is lying in bed. He continues to intermittently be more awake and alert but readily falls asleep and is difficult to arouse. He is more verbal over the last 24 hours and was able to say today that he needs to go to the bathroom. He continues to make repetitive sounds when attempting to speak and his language most often is garbled. He is incontinent but voiding and eliminating without difficulty. Speech therapy evaluated swallow today and have placed him on a pureed food with thin liquids with 1:1 feeding. Discussed the patient with his PCP, Dr. Charly Bravo, who reports the patient is a longstanding alcoholic and is aggressive and abusive at baseline with advanced alcoholic dementia. He is not quite sure why the patient was slowly titrated off of olanzapine to Seroquel last month but believes it was due to the families request as they did not feel his olanzapine was ?working.? The patient has bipolar disorder and has been on Lantus p.m. for 20-30 years per family report. Exam Vital Signs (past 8 hours): - 03/15/19 03:09 03/15/19 08:00 Temperature 100.9 F H 98.8 F Pulse Rate 79 79 Respiratory Rate 18 16 Blood Pressure 134/83 140/98 H Pulse Oximetry 97 97 Oxygen Delivery Method Room Air Oxygen Flow Rate 0 Narrative Exam Narrative: General: Elderly male lying in bed, intermittently awake and alert and other times minimally responsive, patient attempts to talk and most often has garbled speech with occasional comprehensible words. HEENT: Normocephalic, atraumatic. External ears without defect. Neck: No jugular venous distension. No lymphadenopathy or thyromegaly. Cardiovascular: Regular rhythm and rate without murmurs, rubs, or gallops appreciated. Pulmonary: Clear to auscultation bilaterally without crackles, wheezes, or rhonchi. Normal respiratory effort with no use of accessory muscles. Abdomen: Soft, bowel sounds present, appears to be nontender, nondistended. No hepatosplenomegaly or masses appreciated. Extremities: No clubbing or cyanosis. Enlarged and boggy left wrist and left knee joint appears to be chronic and without erythema or significant edema. Skin: Normal temperature, turgor, and texture; no rash, ulcers, or subcutaneous nodules appreciated. Neurological: Generalized weakness and debility. Possible Wernicke-Korsakoff s yndrome. Psychiatric: Intermittently awake and alert and other times minimally responsive, patient attempts to talk and most often has garbled speech with occasional comprehensible words. Less rigid and tardive dyskinesia. Mild pill- rolling tremor on the right. Objective Labs Result Diagrams: 03/15/19 09:17 03/15/19 09:17 Labs: Laboratory Results - last 24 hr 03/14/19 03/15/19 03/15/19 08:55 09:17 09:17 WBC 7.4 RBC 3.94 L Hgb 12.4 L Hct 36.5 L MCV 92.7 MCH 31.4 MCHC 33.8 RDW 13.0 Plt Count 173 Neut % (Auto) 81.2 H Lymph % (Auto) 8.6 L [place] % (Auto) 9.3 Eos % (Auto) 0.7 L Baso % (Auto) 0.2 Neut # (Auto) 6000 Lymph # (Auto) 600 L [place] # (Auto) 700 Eos # (Auto) 100 Baso # (Auto) 0 Sodium 141 Potassium 3.1 L Chloride 112 H Carbon Dioxide 20 L BUN 14 Creatinine 0.90 Estimated GFR > 60.0 BUN/Creatinine Ratio 15.6 Glucose 108 Calcium 8.8 Magnesium Total Bilirubin 1.0 AST 48 ALT 34 Alkaline Phosphatase 89 Total Protein 6.0 L Albumin 3.1 L Globulin 2.9 Albumin/Globulin Ratio 1.1 Procalcitonin C. difficile Tox (PCR) Negative for c. diff 03/15/19 03/15/19 09:17 09:17 WBC RBC Hgb Hct MCV MCH MCHC RDW Plt Count Neut % (Auto) Lymph % (Auto) [place] % (Auto) Eos % (Auto) Baso % (Auto) Neut # (Auto) Lymph # (Auto) [place] # (Auto) Eos # (Auto) Baso # (Auto) Sodium Potassium Chloride Carbon Dioxide BUN Creatinine Estimated GFR BUN/Creatinine Ratio Glucose Calcium Magnesium 1.8 Total Bilirubin AST ALT Alkaline Phosphatase Total Protein Albumin Globulin Albumin/Globulin Ratio Procalcitonin 0.19 C. difficile Tox (PCR) Assessment & Plan Assessment & Plan narrative: Quinton Joe is a 78-year-old male with a past medical history significant for d ementia, DVT and Factor V leiden who presented for generalized weakness and was found to be in acute alcohol withdrawal with DTs. 1. Acute metabolic encephalopathy in setting of dementia, present on admission. Active. -Likely multifactorial and secondary to acute delirium from DT's and UTI and po ssibly withdrawal of antipsycholtics now with EPS syndrome (rigidity and tardive dyskinesia) improved with Cogentin as below. Closed head injury with hemorrhage and CVA ruled out. -CT brain without contrast demonstrated no acute intracranial process. -MRI stroke protocol did not demonstrate any acute intracranial process with age-appropriate brain parenchymal volume loss and chronic small vessel ischemic changes. -Continue treating alcohol withdrawal and UTI as above. -Patient has history of dementia and unclear if he has an underlying behavioral disturbance but psychiatric medications include citalopram, buspirone, olanzapine and quetiapine. 2. Acute urinary tract infection, present on admission. Active. -Lopez catheter placed to obtain urine sample and related to obtundation from sedatives. -Urine culture grew Enterococcus faecalis resistant to tetracyclines. -Received levofloxacin 500 mg IV x1 in ED. Discontinued levofloxacin and switched to 1st line treatment for Enterococcus with ampicillin 2 g every 6 hours x 5 days. 3. Bipolar disorder, acute on chronic, present on admission. Active. -Patient has not been on his antipsychotic for several days during his hospitalization and was recently titrated off of olanzapine, which he has been on for 20-30 years per family report, on to Seroquel. -Patient also had rigidity and some tardive dyskinesia likely due to EPS syndrome and side effect of his antipsychotic which was improved after Cogentin administration. Continue Cogentin 0.5 mg twice daily. -Consulted Psychiatry, Dr. Li, and we appreciate her time and recomme ndations. 4. Acute alcohol withdrawal with delirium tremens, secondary to alcohol dependence and abuse, present on admission. Resolved. -EtOH level<10 with reports of patient having no alcoholic beverages for 3-4 days prior to admission. -No known history of alcohol withdrawal, DTs or alcohol withdrawal seizures. -CIWA protocol initiated. Patient with high CIWA scores initially 13-16. Unable to perform CIWA score on patient due to unresponsiveness. Scheduled Ativan 0.5 mg every 8 hours to treat alcohol withdrawal and slowly titrated off. -Continue thiamine 100 mg IV daily and will transition to PO thiamine when able to take in PO intake. Also ordered vitamin daily if able to take in PO intake. 5. Acute kidney injury, present on admission. Resolved. -Initial creatinine 1.7. Unclear baseline. Creatinine now 1.10. -Avoid nephrotoxic agents. -Continue to monitor renal function closely. 6. Coronary artery disease, chronic, present on admission. Stable. -Patient has reported no chest pain or difficulty breathing to his . -EKG demonstrated sinus bradycardia/sinus rhythm with first-degree AV block with incomplete right bundle without acute ischemic changes. -Patient with hypotensive episode in the ED likely due to dehydration which resolved with fluid resuscitation. -Continue to monitor closely on telemetry. -Updated medication list was provided by spouse and based on external medication history it does not appear that patient is on aspirin or metoprolol any longer. 7. Factor V [place] mutation, chronic, present on admission. Stable. -Patient is usually on warfarin 5 mg daily. Patient has elevated D-dimer at 496 in the setting of multiple falls. -CT brain did not demonstrate any acute intracranial abnormalities. -Continue therapeutic Lovenox 70 mg twice daily when able to take in PO intake. -Need to confirm medication regimen with the family as well as patient adherence to medication use. 8. BPH, chronic, present on admission. Stable. -Continue tamsulosin 0.4 mg daily when able to take in PO intake. Disposition: Patient will undoubtedly need long term facility for continued rehabilitiation once he is medically treated for UTI, alcohol withdrawal, and EPS syndrome. Quality VTE Deep Vein Thrombosis/Pulmonary Embolism Present on Admission: No
[2019-03-15] MEDS: BENZTROPINE 2 MG/2 ML AMPUL 0.5 MG IV ×2 (10:23→21:12)
[2019-03-15] MEDS: THIAMINE 100 MG in DEXTROSE 5 % IN WATER 50 ML 204 ML IV (10:32)
--- NOTE | 2019-03-15 10:36 | RT ---
Patient is not alert at this time. Smoking cessation materials left on his bedside table. We will review them with him when he is alert.
[2019-03-15] MEDS: ENOXAPARIN 80 MG/0.8 ML SYRINGE 70 MG SUBCUT ×2 (10:55→21:11)
[2019-03-15] MEDS: HALOPERIDOL 5 MG/ML VIAL IV (11:22)
--- NOTE | 2019-03-15 12:21 | PM.CN ---
History of Present Illness Consult details Date Patient Seen: 03/15/19 Time Patient Seen: 10:35 Chief complaint: Head injury Reason for consult: Evaluation & treatment recommendations Requesting provider: Lucila Hester Narrative: CC: ?good morning? HOSPITAL COURSE: Admitted 03/11/19 with altered mental status, 4 falls in previous 3 days, UTI. Spoke with Dr. Hester via telephone over the weekend, patient had significant response (relaxation, seeming a bit more comfortable) after 1mg benztropine IV, so planned to continue 0.5mg IV BID scheduled with reasonable improvement. Switched to ampicillin. Vitals largely stable. at bedside yesterday, this is best clinical improvement seen, even accepting some food. Per , similar episode following spinal surgery previously, with rigidity, not eating, had feeding tube and recovered in about 1 mo at home. Has not been febrile. Medications per chart review: Lorazepam: 2 mg IV on 03/12, 0.5 mg IV on 03/13, 0.5 mg IV on 03/14 COLLATERAL FROM STAFF: Sleeping intermittently, will wake up & answer one question then fall back to sleep. Doses of lorazepam seem to contribute to sedation. No p.o. meds. Not agitated, maintaining IV access. INTERVIEW: Pt states ?good morning? when this provider introduces herself & asks how he is doing; no answers to further questions. Eyes mostly closed, response to painful stimuli, appears stiff, in pain, tight neck musculature visible; visibly relaxes after face washed with warm washcloth PAST PSYCHIATRIC HISTORY: Bipolar disorder, on olanzapine for many years, recently switched to quetiapine 300 mg in the past month Dementia per chart history and 's report SUBSTANCE USE HISTORY: Alcohol use, long-standing, around 6 beers/day per 's report FAMILY HISTORY: Unable to assess due to patient's mental status SOCIAL HISTORY: Lives with on [facility], DEVELOPMENTAL HISTORY: unable to assess due to patient?s mental status PCP: [facility] SIGNIFICANT MEDICAL HISTORY: CAD, factor V Leiden mutation, BPH [facility] Medical History Alcohol dependence (Acute) CAD (coronary artery disease) (Acute) Dementia (Acute) DVT (deep venous thrombosis) (Acute) Factor V Leiden (Acute) Tobacco dependence due to cigarettes (Acute) Surgical History Hx of CABG (Acute) Social History household members: spouse Smoking Status: Current every day smoker Social History household members: spouse Smoking Status: Current every day smoker alcohol intake: current Meds Home Medications and Allergies Home Medications Medication Instructions Recorded Confirmed Type warfarin 5 mg PO DAILY 11/14/17 03/13/19 History pantoprazole 40 mg PO DAILY #30 tab 12/03/17 03/11/19 Rx quetiapine 300 mg PO QPM PRN 03/11/19 03/13/19 History tamsulosin 0.4 mg PO DAILY 03/11/19 03/11/19 History probenecid-colchicine 1 tab PO DAILY 03/15/19 History Allergies Allergy/AdvReac Type Severity Reaction Status Date / Time No Known Drug Allergies Allergy Verified 03/10/19 21:09 Review of Systems Review of Systems ROS Unobtainable: unobtainable due to mental status Exam Vital Signs (past 8 hours): - 03/15/19 08:00 03/15/19 12:00 Temperature 98.8 F 99 F Pulse Rate 79 73 Respiratory Rate 16 17 Blood Pressure 140/98 H 124/85 Pulse Oximetry 97 96 Oxygen Delivery Method Room Air Oxygen Flow Rate 0 Narrative Exam Narrative: MENTAL STATUS EXAM Appearance: elderly male, short orozco hair balding, wearing hospital garb, appears slightly older than stated age Behavior: Lying propped in bed, eyes closed, clenching fists, brief pill rolling tremor noted in right hand, neck muscle stiff, yawning, occasionally lifting hands overhead or reaching to itch nose Gait: Not walking, in bed Speech: Normal volume with 1 comment, but no consistent speech Mood: Unable to assess due to patient's mental status Affect: Somnolent, appears uncomfortable Thought Process: Unable to fully assess due to patient's mental status Thought Content: Unable to fully assess due to patient's mental status Attention: Somnolent, unable to sustain attention Orientation: able to fully assess due to patient's mental status Memory: able to fully assess due to patient's mental status Insight: Limited Judgment: Limited Objective Labs Result Diagrams: 03/15/19 09:17 03/15/19 09:17 Labs: Laboratory Results - last 24 hr 03/14/19 03/15/19 03/15/19 08:55 09:17 09:17 WBC 7.4 RBC 3.94 L Hgb 12.4 L Hct 36.5 L MCV 92.7 MCH 31.4 MCHC 33.8 RDW 13.0 Plt Count 173 Neut % (Auto) 81.2 H Lymph % (Auto) 8.6 L [place] % (Auto) 9.3 Eos % (Auto) 0.7 L Baso % (Auto) 0.2 Neut # (Auto) 6000 Lymph # (Auto) 600 L [place] # (Auto) 700 Eos # (Auto) 100 Baso # (Auto) 0 Sodium 141 Potassium 3.1 L Chloride 112 H Carbon Dioxide 20 L BUN 14 Creatinine 0.90 Estimated GFR > 60.0 BUN/Creatinine Ratio 15.6 Glucose 108 Calcium 8.8 Magnesium Total Bilirubin 1.0 AST 48 ALT 34 Alkaline Phosphatase 89 Total Protein 6.0 L Albumin 3.1 L Globulin 2.9 Albumin/Globulin Ratio 1.1 Procalcitonin C. difficile Tox (PCR) Negative for c. diff 03/15/19 03/15/19 09:17 09:17 WBC RBC Hgb Hct MCV MCH MCHC RDW Plt Count Neut % (Auto) Lymph % (Auto) [place] % (Auto) Eos % (Auto) Baso % (Auto) Neut # (Auto) Lymph # (Auto) [place] # (Auto) Eos # (Auto) Baso # (Auto) Sodium Potassium Chloride Carbon Dioxide BUN Creatinine Estimated GFR BUN/Creatinine Ratio Glucose Calcium Magnesium 1.8 Total Bilirubin AST ALT Alkaline Phosphatase Total Protein Albumin Globulin Albumin/Globulin Ratio Procalcitonin 0.19 C. difficile Tox (PCR) Assessment & Plan Assessment and plan (1) Altered mental status: Qualifiers: Altered mental status type: coma Coma depth: [place] coma 3-8 Coma timing: at arrival to emergency department Qualified Code(s): R40.2432 - Gurpreet coma scale score 3-8, at arrival to emergency department Current visit: Yes Status: Acute (2) Urinary tract infection: Qualifiers: Hematuria presence: without hematuria Urinary tract infection type: site unspecified Qualified Code(s): N39.0 - Urinary tract infection, site not specified Current visit: Yes Status: Acute (3) Delirium due to multiple etiologies: Current visit: Yes Status: Acute Assessment & Plan narrative: ASSESSMENT: Quinton 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 He is being actively treated for UTI, metabolic encephalopathy, CHANDLER which has resolved, and has known factor 5 Leiden mutation. His current presentation is consistent with delirium, suspect multiple etiologies including the potential for alcohol withdrawal upon admission, UTI. Per family?s report, he has established diagnoses of bipolar disorder (treated with olanzapine for many years, and recently switched to quetiapine) and dementia. Agree with team?s assessment of extrapyramidal symptoms; although not in the context of using a neuroleptic agent. Parkinsonism can also occur occasionally after stopping chronic neuroleptic therapy, I wonder if that is part of what we are seeing. With response to benztropine, will continue this agent to address EPS. Also, will start IV Haldol, with benefit that IV is less likely than po to cause EPS. History of similar episode following back surgery sounds consistent with either catatonia or delirium. Given lack of improvement with lorazepam during this inpatient stay, catatonia less likely. No clear evidence of NMS (not febrile, and not currently on neuroleptics). DIAGNOSES: Multifactorial Delirium Rule out drug-induced (or withdrawal of chronic neuroleptics) parkinsonism RECOMMENDATIONS: - Dose of Haldol IV 0.5mg today, if some response, schedule 0.5mg BID and consider increase - EKG to check QTc, if greater than 500mg call Dr. Li for recs - Delirium precautions as you are doing - Continue benztropine IV 0.5mg BID - if possible, clarify with PCP why switch from olanzapine to quetiapine Thank you for involving me in this patient's care. I will plan to follow with the hospitalist team via daily chart review or in-person visit while patient is admitted. Please contact me with questions or concerns at [phone].
--- NOTE | 2019-03-15 14:31 | PC.NURSE ---
day shift started day with pt opening eyes, stated good morning to him and he repeated it back. asked another question and he fell back asleep. Throughout the shift, he would awaken spontaneously. when asked he would answer 1-2 questions and then mumble and fall back asleep. Unable to get any PO meds into pt. Able to take a few sips of water. BM this shift, incont x2.
[2019-03-15] MEDS: POTASSIUM CHLORIDE 60 MEQ in SODIUM CHLORIDE 0.9% 500 ML 88.333 ML IV (16:09)
--- NOTE | 2019-03-15 16:11 | ST.IPCSEOM ---
Visit Care Team Role Provider Type Elbert Li DO Other Providers Physician Specialty: Psychiatry Address: [address] [place] [address], [place], [address] Email: [email or web address] Charly Queen MD Family Provider Non-Staff Primary Care Provider Specialty: Internal Medicine Address: [address] [place] [address], [id number] Email: Ricardo Chambers MD Emergency Provider Physician Specialty: Emergency Medicine Address: [address] [place] [address], [id number] Email: [email or web address] ARIS Hernandez Admit Provider Physician Attending Provider Specialty: Internal Medicine Address: [address] [place] [address], [id number] Email: [email or web address] Current Diagnoses Delirium due to known physiological condition (03/11/19) Urinary tract infection, site not specified (03/11/19) Gurpreet coma scale score 3-8, at arrival to emergency department (03/11/19) Past Medical History (Last Reviewed 03/11/19 @ 00:59 by ARIS Hernandez) Alcohol dependence (Acute Medical) CAD (coronary artery disease) (Acute Medical) Dementia (Acute Medical) DVT (deep venous thrombosis) (Acute Medical) May 2017 Factor V Leiden (Acute Medical) Tobacco dependence due to cigarettes (Acute Medical) Speech-Language Pathology Swallow Evaluation [employer] Clinical Swallow Evaluation Start: 03/15/19 15:52 Freq: Status: Active Protocol: Document 03/15/19 15:56 LNK (Rec: 03/15/19 16:11 LNK [id number]) Clinical Swallow Evaluation Session Time Visit Start Time 13:45 Visit Stop Time 14:25 Total Visit Minutes [address] Hester Setting Assessment Location Acute Care Visit Type Note Type Initial Evaluation Next Note Type Next Note Type Re-Evaluation Patient Information Identification Type Name,ID Wristband History Quinton Joe is a 78-year-old male with a past medical history significant for dementia, DVT and Factor V leiden who presented for generalized weakness and was found to have UTI and be in acute alcohol withdrawal with DTs. He continues to intermittently be more awake and alert but readily falls asleep and is difficult to arouse. He is more verbal over the last 24 hours and was able to say today that he needs to go to the bathroom. He continues to make repetitive sounds when attempting to speak and his language most often is garbled . Subjective Observations Pt was in bed and was awakened and agreed to try to eat. Pt confused with jargon speech. pt needed frequent cues to stay awake. Often stared off into space. Evaluation Liquids Trialed Ice Chips,Thin Solids Trialed Puree,Regular Administration Type Tea Spoon,Cup Single Sip, Dependent Feeding Oral Impairment WFL Oral Strategies Upright at 90 degrees,Dementia Strategies Oral Phase Comments Informal observation indicated oral structures grossly WFL. Dentition adequate and in good condition. Mastication observed to be good with a rotary chew. No oral residue observed after each swallow. Pt taking extremely small bites and sips with minimal oral opening for PO. Will fully open mouth for viewing with flashlight. Pharyngeal Impairment WFL Pharyngeal Strategies Sitting Upright (90 deg), Alternate Liquids/Solids Pharyngeal Phase Comments Pt demonstrated good hyolaryngeal elevation with adequate forward movement of the hyoid. No overt cough/ choke or other s/sx of aspiration. Voice clear following all trials. No wet vocal quality observed. Findings Dysphagia Type Swallow appears to be WFL - no overt s/sx dysphagia. Impressions Pt presents with confusion and cognitive impairment secondary to listed diagnoses. Pt presents with minimal oral opening for PO, often seen in pts with dementia. Oral and pharyngeal phases of swallowing appear to be WFL. Aspiration cannot be completely ruled out without instrumental assessment. Pt is not a candidate for MBS at this time. Recommend 1) thin liquids and puree texture with 1:1 assistance to increase PO intake with minimal effort. 2 ) Advance diet as pt's cognition clears, 3) a cognitive assessment when pt is alert and able to participate in assessment. Diet Recommendations Liquids Order Thin Diet Order Dysphagia Blenderized Medication Recommendations As Tolerated Additional Dietary Needs 1:1 Assistance Aspiration Precautions Recommended Precautions Upright at 90 Degrees,Small Bites/Sips Treatment Plan Appropriate for Therapy No: No dysphagia observed [employer] Follow Up for cognitive assessment when pt is able to participate
--- NOTE | 2019-03-15 17:03 | SLP.IPNOTE ---
pt seen for swallowing evaluation Swallow appeared to be WFL. Will not follow for swallowing. Dr. Hester has requested that a cognitive assessment be completed for this patient. At this time he is unable to remain awake long enough to participate. Will put a hold on cognitive order until pt able to participate.
[2019-03-15] MEDS: WARFARIN 5 MG TABLET PO (17:58)
[2019-03-15] MEDS: ACETAMINOPHEN 325 MG TABLET 650 MG PO (22:49)
--- NOTE | 2019-03-15 22:50 | PC.NURSE ---
TEMP TAKE SAYS 102.WARM BLANKETS REMOVED,PT DOES NOT FEEL WARM TO TOUCH WAS ABLE TO GET HIM TO TAKE x2 TYLENOL , WILL UPDATE NIGHT RN.
[2019-03-16 03:47] VITALS: BP 112/68; PULSE 71; RESP 19; TEMP 36.9; O2SAT 98
[2019-03-16] MEDS: AMPICILLIN 2,000 MG in SODIUM CHLORIDE 0.9% 100 ML 200 ML IV ×4 (05:35→23:52)
[2019-03-16 05:50] LABS: Blood Urea Nitrogen 18 mg/dL (9-20); Calcium 8.9 mg/dL (8.4-10.2); Carbon Dioxide 22 mmol/L (22-32); Chloride 113 mmol/L (98-107); Estimated Glomerular Filt Rate > 60.0 mL/min (>60); Glucose 97 mg/dL (80-110); HEMOLYSIS < 15 (0-50); Magnesium 1.9 mg/dL (1.6-2.3); Potassium 3.4 mmol/L (3.4-5.1); Sodium 143 mmol/L (137-145)
[2019-03-16 07:40] VITALS: BP 165/74; PULSE 82; RESP 17; TEMP 37.2; O2SAT 96
[2019-03-16] MEDS: COLCHICINE 0.6 MG TABLET PO (09:37)
[2019-03-16] MEDS: PANTOPRAZOLE 40 MG TABLET PO (09:37)
[2019-03-16] MEDS: ENOXAPARIN 80 MG/0.8 ML SYRINGE 70 MG SUBCUT ×2 (09:37→20:43)
[2019-03-16] MEDS: TAMSULOSIN 0.4 MG CAPSULE PO (09:37)
[2019-03-16] MEDS: PRENATAL VIT,CALC/IRON/FOLIC 1 TABLET 1 TAB PO (09:37)
[2019-03-16] MEDS: PROBENECID 500 MG TABLET PO (09:37)
[2019-03-16] MEDS: HALOPERIDOL 5 MG/ML VIAL IV (09:37)
--- NOTE | 2019-03-16 09:52 | PM.PN.1 ---
Subjective Subjective Date Patient Seen: 03/16/19 Time Patient Seen: 09:52 Interval history: Quinton Joe is a 78-year-old male with a past medical history significant for dementia, DVT and Factor V leiden who presented for generalized weakness and was found to have UTI and be in acute alcohol withdrawal with DTs. He was started on 0.5 mg of Haldol yesterday for his bipolar disorder which has less risk of EPS symptoms. After this he was somewhat more interactive and able to speak in sentences. However this morning he opened his eyes to name, and mumbled but was not speaking much at all. He is still quite stiff, but per reports this is improved from previous. Exam Vital Signs (past 8 hours): - 03/16/19 03:47 03/16/19 07:40 Temperature 98.5 F 98.9 F Pulse Rate 71 82 Respiratory Rate 19 17 Blood Pressure 112/68 165/74 H Pulse Oximetry 98 96 Oxygen Delivery Method Room Air Oxygen Flow Rate 0 Narrative Exam Narrative: General: Elderly male lying in bed, intermittently awake and alert and other times minimally responsive. Mumbled today when called out nickname doc. HEENT: Normocephalic, atraumatic. External ears without defect. Neck: No jugular venous distension. No lymphadenopathy or thyromegaly. Cardiovascular: Regular rhythm and rate without murmurs, rubs, or gallops appreciated. Pulmonary: Clear to auscultation bilaterally without crackles, wheezes, or rhonchi. Normal respiratory effort with no use of accessory muscles. Abdomen: Soft, bowel sounds present, appears to be nontender, nondistended. No hepatosplenomegaly or masses appreciated. Extremities: No clubbing or cyanosis. Enlarged and boggy left wrist and left knee joint appears to be chronic and without erythema or significant edema. Skin: Normal temperature, turgor, and texture; no rash, ulcers, or subcutaneous nodules appreciated. Neurological: Generalized weakness and debility. Unable to assess sensation due to patient's mental status. opens eyes to voice. Psychiatric: Rigid and stiff and tardive dyskinesia. Mild pill-rolling tremor on the right. Objective Labs Result Diagrams: 03/15/19 09:17 03/16/19 05:21 Labs: Laboratory Results - last 24 hr 03/15/19 03/15/19 03/16/19 09:17 09:17 05:21 Sodium 143 Potassium 3.4 Chloride 113 H Carbon Dioxide 22 BUN 18 Creatinine 1.00 Estimated GFR > 60.0 BUN/Creatinine Ratio 18.0 Glucose 97 Calcium 8.9 Magnesium 1.8 1.9 Procalcitonin 0.19 Assessment & Plan Assessment & Plan narrative: Quinton Joe is a 78-year-old male with a past medical history significant for dementia, DVT and Factor V leiden who presented for generalized weakness and was found to be in acute alcohol withdrawal with DTs and now being treated for possible EPS. 1. Acute metabolic encephalopathy in setting of dementia, present on admission. Active. -Likely multifactorial and secondary to acute delirium from DT's and UTI and possibly withdrawal of antipsycholtics now with EPS syndrome (rigidity and tardive dyskinesia) improved with Cogentin as below. Closed head injury with hemorrhage and CVA ruled out. -CT brain without contrast demonstrated no acute intracranial process. -MRI stroke protocol did not demonstrate any acute intracranial process with age-appropriate brain parenchymal volume loss and chronic small vessel ischemic changes. -Continue treating alcohol withdrawal and UTI as above. -Patient has history of dementia and unclear if he has an underlying behavioral disturbance but psychiatric medications include citalopram, buspirone, olanzapine and quetiapine. 2. Acute urinary tract infection, present on admission. Active. -Lopez catheter placed to obtain urine sample and related to obtundation from sedatives. -Urine culture grew Enterococcus faecalis resistant to tetracyclines. -Received levofloxacin 500 mg IV x1 in ED. Discontinued levofloxacin and switched to 1st line treatment for Enterococcus with ampicillin 2 g every 6 hours x 5 days. 3. Bipolar disorder, acute on chronic, present on admission. Active. -Patient has not been on his antipsychotic for several days during his hospitalization and was recently titrated off of olanzapine, which he has been on for 20-30 years per family report, on to Seroquel. -Patient also had rigidity and some tardive dyskinesia likely due to EPS syndrome and side effect of his antipsychotic which was improved after Cogentin administration. Continue Cogentin 0.5 mg twice daily. -Consulted Psychiatry, Dr. Li, and we appreciate her time and recommendations. Will continue haldol 0.5 mg BID as patient did show slight improvement after initiation. 4. Acute alcohol withdrawal with delirium tremens, secondary to alcohol dependence and abuse, present on admission. Resolved. -EtOH level<10 with reports of patient having no alcoholic beverages for 3-4 days prior to admission. -No known history of alcohol withdrawal, DTs or alcohol withdrawal seizures. -CIWA protocol initiated. Patient with high CIWA scores initially 13-16. Unable to perform CIWA score on patient due to unresponsiveness. Scheduled Ativan 0.5 mg every 8 hours to treat alcohol withdrawal and slowly titrated off. -Continue thiamine 100 mg IV daily and will transition to PO thiamine when able to take in PO intake. Also ordered vitamin daily if able to take in PO intake. 5. Acute kidney injury, present on admission. Resolved. -Initial creatinine 1.7. Unclear baseline. Creatinine now 1.0. -Avoid nephrotoxic agents. -Continue to monitor renal function closely. 6. Coronary artery disease, chronic, present on admission. Stable. -Patient has reported no chest pain or difficulty breathing to his . -EKG demonstrated sinus bradycardia/sinus rhythm with first-degree AV block with incomplete right bundle without acute ischemic changes. -Patient with hypotensive episode in the ED likely due to dehydration which resolved with fluid resuscitation. -Continue to monitor closely on telemetry. -Updated medication list was provided by spouse and based on external medication history it does not appear that patient is on aspirin or metoprolol any longer. 7. Factor V Chris mutation, chronic, present on admission. Stable. -Patient is usually on warfarin 5 mg daily. Patient has elevated D-dimer at 496 in the setting of multiple falls. -CT brain did not demonstrate any acute intracranial abnormalities. -Continue therapeutic Lovenox 70 mg twice daily when able to take in PO intake. -Need to confirm medication regimen with the family as well as patient adherence to medication use. 8. BPH, chronic, present on admission. Stable. -Continue tamsulosin 0.4 mg daily when able to take in PO intake. Disposition: Patient will undoubtedly need senior care facility for continued rehabilitiation once he is medically treated for UTI, alcohol withdrawal, and EPS syndrome. Quality VTE Deep Vein Thrombosis/Pulmonary Embolism Present on Admission: No
[2019-03-16] MEDS: THIAMINE 100 MG in DEXTROSE 5 % IN WATER 50 ML 204 ML IV (10:35)
[2019-03-16] MEDS: BENZTROPINE 2 MG/2 ML AMPUL 0.5 MG IV ×2 (10:35→20:42)
[2019-03-16 11:00] VITALS: BP 153/68; PULSE 85; RESP 17; TEMP 37.1; O2SAT 97
--- NOTE | 2019-03-16 11:04 | SLP.IPNOTE ---
Attempted to see pt with family in attendance. Nursing reported that earlier today, pt was alert and oriented to self. He was able to take medications with thin liquids. Attempted to assess cognition; however, pt had fallen back to sleep and was unresponsive to name/touch. Will continue to try as indicated.
--- NOTE | 2019-03-16 15:31 | PC.NURSE ---
Day Shift pt more alert today. up for hours at a time watching tv. answering more questions. At end of shift, trying to get out of bed. Asking to go to the bathroom. Unable to move legs to side of bed. Attempt to use the urinal which was unsuccesful, pt using brief.
[2019-03-16 15:53] VITALS: BP 115/65; PULSE 104; RESP 20; TEMP 37; O2SAT 93
[2019-03-16] MEDS: WARFARIN 5 MG TABLET PO (18:08)
[2019-03-16 19:49] VITALS: BP 107/66; PULSE 86; RESP 18; TEMP 36.7; O2SAT 95
[2019-03-16] MEDS: HALOPERIDOL 5 MG/ML VIAL 1 MG IV (20:43)
--- NOTE | 2019-03-16 21:27 | PC.NURSE ---
PATIENT IS MORE ACTIVE,ATTEMPTING TO GET OUT OF BED,AND PULLING AT IV/TELE/BEDDING. BED ALARM IS ON.
[2019-03-16 23:00] VITALS: BP 132/78; PULSE 67; RESP 16; TEMP 37.5; O2SAT 92
[2019-03-16] MEDS: SODIUM CHLORIDE 0.9% FLUSH 10 ML IV (23:53)
[2019-03-17 05:10] LABS: INR 1.1 (0.9-1.3); Prothrombin Time 12.9 SECONDS (10.1-12.7)
[2019-03-17 05:39] VITALS: BP 131/82; PULSE 70; RESP 16; TEMP 36.7; O2SAT 97
[2019-03-17] MEDS: AMPICILLIN 2,000 MG in SODIUM CHLORIDE 0.9% 100 ML 200 ML IV (05:52)
[2019-03-17 08:00] VITALS: BP 130/74; PULSE 67; RESP 18; TEMP 36.5; O2SAT 98
[2019-03-17] MEDS: BENZTROPINE 2 MG/2 ML AMPUL 0.5 MG IV (09:56)
[2019-03-17] MEDS: HALOPERIDOL 5 MG/ML VIAL 1 MG IV (09:56)
[2019-03-17] MEDS: SODIUM CHLORIDE 0.9% FLUSH 10 ML IV (09:56)
[2019-03-17] MEDS: ENOXAPARIN 80 MG/0.8 ML SYRINGE 70 MG SUBCUT (09:56)
[2019-03-17] MEDS: THIAMINE 100 MG in DEXTROSE 5 % IN WATER 50 ML 204 ML IV (09:56)
--- NOTE | 2019-03-17 09:57 | PM.DS.1 ---
History of Present Illness History of Present Illness Date Patient Seen: 03/17/19 Time Patient Seen: 09:59 Chief complaint: Head injury Narrative: As per ARIS Hernandez: Mr. Quinton Joe is a 78 year old male with a history significant for coronary artery disease status post CABG, hiatal hernia, factor V Leiden with history of DVT, dementia, alcohol and tobacco dependence who was brought into the ER by EMS with altered mental status post falls. The patient was walking into his house when he fell today. He has experienced 4 falls in the last 3 days. Per his the patient states he has been deteriorating rapidly over the last 4 days. Two days ago he fell and hit his head and has a history of being on warfarin for factor V Leiden and history of DVT. Upon arrival in the ER the patient is nonverbal, not responding to questions or commands with minimal response to noxious stimulus. He has a past history of heavy alcohol use but per family report has had none for the last 3 days. No seizure activity was noted by family or EMS personnel. He has had no vomiting. The patient is unable to provide subjective data due to altered mental status. In the ER the patient is found to be afebrile with temperature of 98.7?, heart rate of 75, blood pressure of 111/83 which dropped precipitously to 79/58 and following fluid resuscitation has returned to 129/85. Respirations are 16 and nonlabored with an oxygen saturation of 97% on room air. Due to the fall patient had a CT the next which found no fractures. He also had a CT of the head which shows no acute intracranial processes. A chest x-ray was taken which finds no acute cardio pulmonary pathology. His EKG shows sinus rhythm with a ventricular rate of 77, first-degree AV block and an incomplete right bundle branch block. On labs he has a normal white count at 7.8, hemoglobin and hematocrit of 13.8 and 40.9 and platelets of 178. Electrolytes are all within normal range. He has a BUN of 30 and elevated creatinine 1.7 and nonfasting glucose 155. His LFTs are within normal range and his ammonia is less than 9. Lactic acid is obtained at 1.7. On coagulation as a PT of 12.1 and INR 1.1 with a PTT of 31. His troponin is less than 0.012. Urinalysis is positive for protein, leukocyte esterase, WBCs, and bacteria and will be cultured. Blood cultures are drawn and the patient started on Levaquin 500 mg IV with a past history of a Klebsiella UTI. Discharge Providers Provider Date of admission: 03/11/19 00:21 Discharge Date: 03/17/19 Primary care physician: Charly Queen MD Consults: 03/11/19 00:36 Consult to Discharge Planning Routine Comment: 03/11/19 03:13 Consult to Dietitian, Adult Routine Comment: Reason For Exam: altered LOC, aspiration precautions 03/14/19 16:44 Consult to Dietitian, Adult Routine Comment: Reason For Exam: Low simeon score 03/15/19 09:02 Consult to Physician Routine Comment: Consulting Provider: Elbert Li Reason for consultation: EPS, Bipolar Has provider been notified: Yes 03/15/19 14:52 Consult to Speech Therapy Evaluate & Treat Comment: swallow screen, cognitive eval Physician Instructions: Evaluate and treat Discharge provider: Mike Wooten DO Summary Hospital Course Discharge Diagnosis: 1. Acute metabolic encephalopathy in setting of dementia, present on admission. Active. 2. Acute urinary tract infection, present on admission. Active. 3. Bipolar disorder, acute on chronic, present on admission. Active. 4. Acute alcohol withdrawal with delirium tremens, secondary to alcohol dependence and abuse, present on admission. Resolved. 5. Acute kidney injury, present on admission. Resolved. Secondary to dehydration and decrease PO intake. 6. Factor V Mcleod mutation, chronic, present on admission. Stable. 7. BPH, chronic, present on admission. Stable. 8. Severe Acute Illness Protein Calorie Malnutrition Hospital Course: Quinton Joe is a 78-year-old male with a past medical history significant for dementia, DVT and Factor V leiden who presented for generalized weakness and was found to be in acute alcohol withdrawal with DTs and then developed EPS symptoms after changing from olanzapine to seroquel. This medication was held and started on haldol after recommendations from psychiatry. He was started on benztropine with improvement in EPS symptoms. He is being discharge to [facility]. 1. Acute metabolic encephalopathy in setting of dementia, present on admission. Active. -Likely multifactorial and secondary to acute delirium from DT's and UTI and possibly withdrawal of antipsycholtics. He developed EPS syndrome (rigidity and tardive dyskinesia) improved with Cogentin as below. Closed head injury with hemorrhage and CVA ruled out. -CT brain without contrast demonstrated no acute intracranial process. -MRI stroke protocol did not demonstrate any acute intracranial process with age-appropriate brain parenchymal volume loss and chronic small vessel ischemic changes. -Patient was treated for alcohol withdrawal and UTI as noted below 2. Acute urinary tract infection, present on admission. Active. -Lopez catheter placed to obtain urine sample and related to obtundation from sedatives. -Urine culture grew Enterococcus faecalis resistant to tetracyclines. -Received levofloxacin 500 mg IV x1 in ED. Discontinued levofloxacin and switched to 1st line treatment for Enterococcus with ampicillin 2 g every 6 hours x 5 days. To complete total therapy (to end 03/19) with amoxicillin as outpatient. 3. Bipolar disorder, acute on chronic, present on admission. Active. -Patient has not been on his antipsychotic for several days during his hospitalization and was recently titrated off of olanzapine, which he has been on for 20-30 years per family report, on to Seroquel. According to PCP this was done to try and help with previously increased symptoms as well as cost after family discussion. -Patient also had rigidity and some tardive dyskinesia likely due to EPS syndrome and side effect of his antipsychotic which was improved after Cogentin administration. Continue Cogentin 0.5 mg twice daily for two weeks. Need for further continuation can be decided at that time with help of primary care or psychiatry. -Consulted Psychiatry, Dr. Li, and we appreciate her time and recommendations. Haldol to be continued at 1 mg PO BID with further titration with outpatient psychiatry or primary care. 4. Acute alcohol withdrawal with delirium tremens, secondary to alcohol dependence and abuse, present on admission. Resolved. -EtOH level<10 with reports of patient having no alcoholic beverages for 3-4 days prior to admission. -No known history of alcohol withdrawal, DTs or alcohol withdrawal seizures. -CIWA protocol initiated on admission. Patient with high CIWA scores initially 13-16. Patient was given scheduled Ativan 0.5 mg every 8 hours to treat alcohol withdrawal and slowly titrated off. -Continue thiamine 100 mg outpatient. 5. Acute kidney injury, present on admission. Resolved. Secondary to dehydration and decrease PO intake. -Initial creatinine 1.7. Unclear baseline. Creatinine now 1.0. -Avoid nephrotoxic agents. -Continue to monitor renal function closely. 6. Factor V Mcleod mutation, chronic, present on admission. Stable. -Patient is usually on warfarin 5 mg daily. Patient has elevated D-dimer at 496 in the setting of multiple falls. -CT brain did not demonstrate any acute intracranial abnormalities. -Continue therapeutic Lovenox 70 mg twice daily until INR is therapeutic with warfarin, INR 1.1 day of discharge. 7. BPH, chronic, present on admission. Stable. -Continue tamsulosin 0.4 mg 8. Severe Acute Illness Protein Calorie Malnutrition - Patient with decreased PO intake secondary to above issues including alcoholism, bipolar disorder, and EPS. - appreciate nutrition recommendations and support. Disposition:Discharged to SNF. Time Spent with Patient Time spent: Greater than 30 minutes Exam Vital Signs (past 8 hours): - 03/17/19 05:39 03/17/19 08:00 Temperature 98.1 F 97.7 F Pulse Rate 70 67 Respiratory Rate 16 18 Blood Pressure 131/82 130/74 Pulse Oximetry 97 98 Oxygen Delivery Method Room Air Oxygen Flow Rate 0 Narrative Exam Narrative: General: Elderly male lying in bed, intermittently awake and alert. Today eating breakfast and speaking, no rigidity. HEENT: Normocephalic, atraumatic. External ears without defect. Neck: No jugular venous distension. No lymphadenopathy or thyromegaly. Cardiovascular: Regular rhythm and rate without murmurs, rubs, or gallops appreciated. Pulmonary: Clear to auscultation bilaterally without crackles, wheezes, or rhonchi. Somewhat decreased respiratory effort with no use of accessory muscles. Abdomen: Soft, bowel sounds present, appears to be nontender, nondistended. No hepatosplenomegaly or masses appreciated. Extremities: No clubbing or cyanosis. Enlarged and boggy left wrist and left knee joint appears to be chronic and without erythema or significant edema. Skin: Normal temperature, turgor, and texture; no rash, ulcers, or subcutaneous nodules appreciated. Neurological: Generalized weakness and debility. Speaking non-sensically with significant slurring. No facial droop and no focal numbness or weakness. Follows simple commands. oriented to name only. Psychiatric: No rigidity this morning, pleasant, normal affect Objective Labs Result Diagrams: 03/15/19 09:17 03/16/19 05:21 Labs: Laboratory Results - last 24 hr 03/17/19 04:55 PT 12.9 H INR 1.1 Discharge Plan Discharge Plan Patient Disposition: SNF Transfer to: [facility] Discharge comment: Quinton Joe is a 78-year-old male with a past medical history significant for dementia, DVT and Factor V leiden who presented for generalized weakness and was found to be in acute alcohol withdrawal with DTs and then developed EPS symptoms after changing from olanzapine to seroquel. This medication was held and started on haldol after recommendations from psychiatry. He was started on benztropine with improvement in EPS symptoms. He is being discharge to [facility]. 1. Acute metabolic encephalopathy in setting of dementia, present on admission. Active. -Likely multifactorial and secondary to acute delirium from DT's and UTI and possibly withdrawal of antipsycholtics. He developed EPS syndrome (rigidity and tardive dyskinesia) improved with Cogentin as below. Closed head injury with hemorrhage and CVA ruled out. -CT brain without contrast demonstrated no acute intracranial process. -MRI stroke protocol did not demonstrate any acute intracranial process with age-appropriate brain parenchymal volume loss and chronic small vessel ischemic changes. -Patient was treated for alcohol withdrawal and UTI as noted below 2. Acute urinary tract infection, present on admission. Active. -Lopez catheter placed to obtain urine sample and related to obtundation from sedatives. -Urine culture grew Enterococcus faecalis resistant to tetracyclines. -Received levofloxacin 500 mg IV x1 in ED. Discontinued levofloxacin and switched to 1st line treatment for Enterococcus with ampicillin 2 g every 6 hours x 5 days. To complete total therapy (to end 03/19) with amoxicillin as outpatient. 3. Bipolar disorder, acute on chronic, present on admission. Active. -Patient has not been on his antipsychotic for several days during his hospitalization and was recently titrated off of olanzapine, which he has been on for 20-30 years per family report, on to Seroquel. According to PCP this was done to try and help with previously increased symptoms as well as cost after family discussion. -Patient also had rigidity and some tardive dyskinesia likely due to EPS syndrome and side effect of his antipsychotic which was improved after Cogentin administration. Continue Cogentin 0.5 mg twice daily for two weeks. Need for further continuation can be decided at that time with help of primary care or psychiatry. -Consulted Psychiatry, Dr. Li, and we appreciate her time and recommendations. Haldol to be continued at 1 mg PO BID with further titration with outpatient psychiatry or primary care. 4. Acute alcohol withdrawal with delirium tremens, secondary to alcohol dependence and abuse, present on admission. Resolved. -EtOH level<10 with reports of patient having no alcoholic beverages for 3-4 days prior to admission. -No known history of alcohol withdrawal, DTs or alcohol withdrawal seizures. -CIWA protocol initiated on admission. Patient with high CIWA scores initially 13-16. Patient was given scheduled Ativan 0.5 mg every 8 hours to treat alcohol withdrawal and slowly titrated off. -Continue thiamine 100 mg outpatient. 5. Acute kidney injury, present on admission. Resolved. Secondary to dehydration and decrease PO intake. -Initial creatinine 1.7. Unclear baseline. Creatinine now 1.0. -Avoid nephrotoxic agents. -Continue to monitor renal function closely. 6. Factor V Chris mutation, chronic, present on admission. Stable. -Patient is usually on warfarin 5 mg daily. Patient has elevated D-dimer at 496 in the setting of multiple falls. -CT brain did not demonstrate any acute intracranial abnormalities. -Continue therapeutic Lovenox 70 mg twice daily until INR is therapeutic with warfarin, INR 1.1 day of discharge. 7. BPH, chronic, present on admission. Stable. -Continue tamsulosin 0.4 mg Discharge Med Rec/Prescriptions Prescriptions: New amoxicillin 250 mg Capsule 500 mg PO TID 2 Days Qty: 12 RF: 0 haloperidol lactate 2 mg/mL Concentrate 1 mg PO BID 30 Days Qty: 30 RF: 0 folic acid 1 mg tablet 1 mg PO DAILY 30 Days Qty: 30 RF: 0 benztropine 0.5 mg tablet 0.5 mg PO BID 14 Days Qty: 28 RF: 0 Continued warfarin 5 mg tablet 5 mg PO DAILY RF: 0 pantoprazole 40 mg tablet,delayed release (DR/EC) 40 mg PO DAILY Qty: 30 RF: 0 tamsulosin 0.4 mg capsule 0.4 mg PO DAILY RF: 0 probenecid-colchicine 500-0.5 mg tablet 1 tab PO DAILY RF: 0 Discontinued quetiapine 300 mg tablet 300 mg PO QPM PRN (Reason: as directed) RF: 0 Follow up/Referrals: Charly Queen MD [Primary Care Provider] - Discharge Health Status Brief summary of current health status: Quinton Joe is a 78-year-old male with a past medical history significant for dementia, DVT and Factor V leiden who presented for generalized weakness and was found to be in acute alcohol withdrawal with DTs and then developed EPS symptoms after changing from olanzapine to seroquel. This medication was held and started on haldol after recommendations from psychiatry. He was started on benztropine with improvement in EPS symptoms. He is being discharge to [facility]. 1. Acute metabolic encephalopathy in setting of dementia, present on admission. Active. -Likely multifactorial and secondary to acute delirium from DT's and UTI and possibly withdrawal of antipsycholtics. He developed EPS syndrome (rigidity and tardive dyskinesia) improved with Cogentin as below. Closed head injury with hemorrhage and CVA ruled out. -CT brain without contrast demonstrated no acute intracranial process. -MRI stroke protocol did not demonstrate any acute intracranial process with age-appropriate brain parenchymal volume loss and chronic small vessel ischemic changes. -Patient was treated for alcohol withdrawal and UTI as noted below 2. Acute urinary tract infection, present on admission. Active. -Lopez catheter placed to obtain urine sample and related to obtundation from sedatives. -Urine culture grew Enterococcus faecalis resistant to tetracyclines. -Received levofloxacin 500 mg IV x1 in ED. Discontinued levofloxacin and switched to 1st line treatment for Enterococcus with ampicillin 2 g every 6 hours x 5 days. To complete total therapy (to end 03/19) with amoxicillin as outpatient. 3. Bipolar disorder, acute on chronic, present on admission. Active. -Patient has not been on his antipsychotic for several days during his hospitalization and was recently titrated off of olanzapine, which he has been on for 20-30 years per family report, on to Seroquel. According to PCP this was done to try and help with previously increased symptoms as well as cost after family discussion. -Patient also had rigidity and some tardive dyskinesia likely due to EPS syndrome and side effect of his antipsychotic which was improved after Cogentin administration. Continue Cogentin 0.5 mg twice daily for two weeks. Need for further continuation can be decided at that time with help of primary care or psychiatry. -Consulted Psychiatry, Dr. Li, and we appreciate her time and recommendations. Haldol to be continued at 1 mg PO BID with further titration with outpatient psychiatry or primary care. 4. Acute alcohol withdrawal with delirium tremens, secondary to alcohol dependence and abuse, present on admission. Resolved. -EtOH level<10 with reports of patient having no alcoholic beverages for 3-4 days prior to admission. -No known history of alcohol withdrawal, DTs or alcohol withdrawal seizures. -CIWA protocol initiated on admission. Patient with high CIWA scores initially 13-16. Patient was given scheduled Ativan 0.5 mg every 8 hours to treat alcohol withdrawal and slowly titrated off. -Continue thiamine 100 mg outpatient. 5. Acute kidney injury, present on admission. Resolved. Secondary to dehydration and decrease PO intake. -Initial creatinine 1.7. Unclear baseline. Creatinine now 1.0. -Avoid nephrotoxic agents. -Continue to monitor renal function closely. 6. Factor V Chris mutation, chronic, present on admission. Stable. -Patient is usually on warfarin 5 mg daily. Patient has elevated D-dimer at 496 in the setting of multiple falls. -CT brain did not demonstrate any acute intracranial abnormalities. -Continue therapeutic Lovenox 70 mg twice daily until INR is therapeutic with warfarin, INR 1.1 day of discharge. 7. BPH, chronic, present on admission. Stable. -Continue tamsulosin 0.4 mg Provider Discharge Instructions Diet: Diet as Tolerated Diet comment: Currently on dysphagia diet, can advance as tolerated. Activity: As tolerated per Physcial therapy recommendations Discharge Data Primary Care Provider: Charly Queen VTE Deep Vein Thrombosis/Pulmonary Embolism Present on Admission: No
--- NOTE | 2019-03-17 09:59 | CM.DPC ---
DCP continues: EMR reviewed: During Am rounds Hospitalist stated patient maybe able to DC today. CM spoke with Anastasiya at [facility] about patient being d/c today. Wendy from [facility] will be coming over this morning to assess him and make a final decision on if they will accept or not. CM called [facility] and left a message with [facility] to check on status for admission with them. CM will check back in with them later this mornig. Katiuska Strickland RN
[2019-03-17] MEDS: PRENATAL VIT,CALC/IRON/FOLIC 1 TABLET 1 TAB PO (11:10)
[2019-03-17] MEDS: COLCHICINE 0.6 MG TABLET PO (11:10)
[2019-03-17] MEDS: PANTOPRAZOLE 40 MG TABLET PO (11:11)
[2019-03-17] MEDS: PROBENECID 500 MG TABLET PO (11:11)
[2019-03-17] MEDS: TAMSULOSIN 0.4 MG CAPSULE PO (11:11)
[2019-03-17 11:38] VITALS: BP 130/74; PULSE 67; RESP 18; TEMP 36.5; O2SAT 98
--- NOTE | 2019-03-17 13:40 | PT.IIE ---
Current Diagnoses Delirium due to known physiological condition (03/11/19) Urinary tract infection, site not specified (03/11/19) Gurpreet coma scale score 3-8, at arrival to emergency department (03/11/19) Surgical History (Last Reviewed 03/11/19 @ 00:59 by ARIS Hernandez) Hx of CABG (Acute) Medical History (Last Reviewed 03/11/19 @ 00:59 by ARIS Hernandez) Alcohol dependence (Acute) CAD (coronary artery disease) (Acute) Dementia (Acute) DVT (deep venous thrombosis) (Acute) Factor V Leiden (Acute) Tobacco dependence due to cigarettes (Acute) Physical Therapy Inpatient Evaluation/Re-Eval M1 PT/OT-IP Prior Functional Status Start: 03/17/19 14:07 Freq: NEEDED Status: Active Protocol: Document 03/17/19 13:40 AB (Rec: 03/17/19 14:24 AB [id number]) Medical Review Prior Functional Status Medical History Reviewed Yes Diet/Fluid Consistency Pureed,Thin Liquids Communication pt with confusion and not consistent with answering questions and unable to consistently follow directions Mobility and Gait per spouse: pt is modified independent with all mobilities and ambulation without AD but has h/o falls and spouse stated that she assists pt as needed Social History Household Members spouse Living Arrangements House Number of Floors (Floors) 3 or More Floors Number of Stairs To Enter/Railing? pt stays on main level of the house has 2 steps to enter with bialteral wide rails and can only hold on to one rail at a time Home Environment Standard Height Toilet,Tub/ Shower Home Equipment Front Wheel Walker,Manual Wheelchair,Shower Seat without Backrest,Grab Bars In Shower Additional Social History Comment pt lives with spouse and his daughter (per spouse: daughter is handicapped) M2 PT-IP Current Condition Start: 03/17/19 14:07 Freq: NEEDED Status: Active Protocol: Document 03/17/19 13:40 AB (Rec: 03/17/19 14:24 AB [id number]) Physical Therapy Current Condition Current Condition Evaluation Date 03/17/19 Treatment Diagnosis AMS; dementia; alcohol withdrawal; difficulty in walking Onset Date 03/11/19 Precautions Other Precautions falls M3 PT-IP Subjective Start: 03/17/19 14:07 Freq: NEEDED Status: Active Protocol: Document 03/17/19 13:40 AB (Rec: 03/17/19 14:24 AB [id number]) Subjective Physical Therapy Visit Type Type Initial Evaluation Visit Start Time 13:40 Visit Stop Time 13:56 Total Visit Minutes 16 Number of ASSISTANT [employer] Visits 0 M4 PT-IP Mobility and Gait Start: 03/17/19 14:07 Freq: NEEDED Status: Active Protocol: Document 03/17/19 13:40 AB (Rec: 03/17/19 14:24 AB [id number]) PT-Bed Mobility Assessment Supine to Sit Supine to Sit Maximum Assistance,Total Assistance,2 Person Assistance ,Head of Bed Elevated Sit to Supine Sit to Supine Maximum Assistance,Total Assistance,2 Person Assistance ,Head of Bed Elevated Scooting Scooting to Edge of Bed Dependent Scooting Up and Down in Bed Dependent PT-Transfer Assessment Sit to and From Stand Sit to and from Stand Maximum Assistance,2 Person Assistance,Use of Upper Extremities Equipment Transfer Assistive Device Gait Belt Comments Mobility Comments pt supine in bed HOB elevated. pt with confusion and unable to answer questions consistently. pt fixated on his bed control and paper and refused to let go despite instructions and distractions. attempted transfer. pt required max A x 2 to total A x 2 and max cues. pt is resistive. attempted sit to stand for transfers x 4 reps max A x 2 to tolal A x 2 provided but pt is resistive and pushes back and unable to stand upright. (+) body tremors/shaking during mobility. Assisted pt back to bed total A x 2 and positioned in bed total A x 2. Gait Assessment Comments Gait Comments unable at this time PT-Balance Assessment Sitting Balance and Reactions Static Sitting Balance Ability Fair Dynamic Sitting Balance Ability Poor Standing Balance and Reactions Static Standing Balance Ability Poor Dynamic Standing Balance Ability Poor M5 PT-IP Objective Assessments Start: 03/17/19 14:07 Freq: NEEDED Status: Active Protocol: Document 03/17/19 13:40 AB (Rec: 03/17/19 14:24 AB [id number]) Orientation Orientation/Cognition Level of Alertness Confusional State Safety Awareness Decreased Safety Awareness Memory Description Short Term Impaired,Manager Trading Impaired Gross Range of Motion Lower Extremity ROM Assessment Within Functional Limits Strength Comments Strength Comments unable to check MMT due to pt' s inability to follow directions Coordination Assessment Gross Coordination Gross Coordination Impaired M7 PT-IP Assessment and Plan Start: 03/17/19 14:07 Freq: NEEDED Status: Active Protocol: Document 03/17/19 13:40 AB (Rec: 03/17/19 14:24 AB [id number]) PT Summary Assessment and Plan Potential Rehabilitation Potential Fair Status of Condition at Evaluation Evolving Summary Impairments Pain,ROM,Strength,Balance, Coordination,Sensation,Tone, Cognition,Bed Mobility, Transfers,Gait,Activity Tolerance Assessment Summary pt with decrease cognitive level affecting following directions and safety awareness and at this time requires max A x 2 to total A x 2. unable to transfer with PT despite total A x 2 provided. pt tends to push back when assisted and is resistive despite cues provided. d/c plan depending on how much pt chel clear up mentally and be able to follow directions and progress. spouse stated that prior to admission, pt was modified independent with all mobilities and ambulation without AD but has h/o falls. pt at this time will require SNF vs memory care facility. Goals Bed Mobility Goal Minimal Assistance Transfer Goal Minimal Assistance Gait Goal Minimal Assistance Gait Distance 50 Days to Meet Goals 10 Frequency of Treatment Frequency Of Treatment Once a Day Treatment Plan Physical Therapy Treatment Plan Bed Mobility Training,Transfer Training,Gait Training, Therapeutic Exercise,Balance Retraining,Post Op Education, Discharge Planning,Hot or Cold Pack,Neuromuscular Re-ed, Coordination Retraining,Manual Therapy Recommendations To Nursing Amount of Assist Needed 2 Person Assist,Total Assistance,Mechanical Lift Discharge Recommendations PT Discharge Recommendations SNF Rehab Other Discharge Recommendations SNF vs memory care facility
[2019-03-17] MEDS: AMOXICILLIN 250 MG CAPSULE 500 MG PO (14:25)
[2019-03-17 15:02] VITALS: BP 137/88; PULSE 71; RESP 18; TEMP 36.4; O2SAT 95
--- NOTE | 2019-03-17 15:10 | SLP.IPNOTE ---
microfilming document preparer attempted to see pt x3. He was initially not alert enough to participate in cognitive evaluation and was discharging to SNF at time of 3rd attempt.
--- NOTE | 2019-03-17 15:16 | CM.DPC ---
DCP Continues: EMR reviewed. Spoke with Anber from [facility] to discuss D/C plan. Wendy stated she needed to see PT and OT notes for they patient. Orders for PT/OT evaluations were put in. Spoke to Samra for [facility] to see if they will accept. Samra at [facility] stated they will accept him for admission. PASRR done, CM contacted PASRR coordinator Sharonda Aditya at [phone] and reviewed PASRR. PASRR completed. LAURA/RN spoke to patients [phone] and explained that her was accepted to [facility] for a shot term SNF stay and discussed her plan for after SNF. She stated her plan is to bring patient home with her once he is able. Patients stated understanding that [facility] is a Short-term SNF stay. LAURA spoke to [facility] at [phone] to arrange BLS transport for patient to [facility]. [facility] will pick remover today at 4:45pm. Certifcation of medical necessity - non-emergent transport form complete and signed by LAURA/RN and Dr. Wooten. D/C orders, PASRR faxed to [facility]. LAURA spoke to patients nurse and informed her that BLS transport will be here to pick patient up at 4:45pm d/c packet arranged and placed in patients box at nurses station. Katiuska Strickland RN
--- NOTE | 2019-03-17 17:11 | OT.IP.TRT ---
Current Diagnoses Delirium due to known physiological condition (03/11/19) Urinary tract infection, site not specified (03/11/19) Gurpreet coma scale score 3-8, at arrival to emergency department (03/11/19) Occupational Therapy Treatment Note M3 OT- IP Subjective and Pain Start: 03/17/19 17:10 Freq: Status: Active Protocol: Document 03/17/19 17:10 [facility] (Rec: 03/17/19 17:11 [facility] [id number]) OT- Subjective Occupational Therapy Visit Type Type Administrative Note Notes Pt being discharged to skilled rehab today, therefore defer to skilled OT for OT goals.
--- NOTE | 2019-03-17 17:49 | PC.NURSE ---
Discharge Note- Patient discharged to SNF. Patient left via ambulance at 1645 to [facility]. Patient changed into [facility] pants and [facility]. All personal belongings packed up and sent with patient. IV line removed and bandaid applied. Tele monitor removed. Patient left via stretcher to ambulance at 1645. Report called to LEYDA Lugo at [phone].
== END 2019-03-17 16:45 | DRG 70 ==
LOC: ED 23:42 → AC 03-11 00:22
PROVIDERS: Internal Medicine; Admitting Provider Nurse Practitioner Adult Health; Emergency Provider Emergency Medicine; Family Provider Internal Medicine; PCP Internal Medicine; Visit Provider Nurse Practitioner Adult Health
DX: G93.41 Metabolic encephalopathy (principal); R40.2343 Coma scale, best motor response, flexion withdrawal, at hospital admission; R40.2123 Coma scale, eyes open, to pain, at hospital admission; R40.2213 Coma scale, best verbal response, none, at hospital admission; E43 Unspecified severe protein-calorie malnutrition; N39.0 Urinary tract infection, site not specified; D68.51 Activated protein C resistance; F10.231 Alcohol dependence with withdrawal delirium; N17.9 Acute kidney failure, unspecified; Z16.29 Resistance to other single specified antibiotic; F03.90 Unspecified dementia, unspecified severity, without behavioral disturbance, psychotic disturbance, mood disturbance, and anxiety; N40.0 Benign prostatic hyperplasia without lower urinary tract symptoms; I25.10 Atherosclerotic heart disease of native coronary artery without angina pectoris; Y90.0 Blood alcohol level of less than 20 mg/100 ml; Z79.01 Long term (current) use of anticoagulants; B95.2 Enterococcus as the cause of diseases classified elsewhere; G25.89 Other specified extrapyramidal and movement disorders; F31.9 Bipolar disorder, unspecified
CPT/HCPCS: 36415; 51701; 70450; 70551; 71045; 72125; 73110; 80048; 80053; 80305; 80320; 81001; 82140; 82550; 82553; 83605; 83735; 84145; 84146; 84443; 84484; 84550; 85025; 85379; 85610; 85730; 87040; 87077; 87086; 87186; 87493; 90792; 92610; 93005; 94760; 94762; 96361; 96365; 97162; 99285; 99291; 99406; J0290; J0515; J1630; J1650; J1956; J2060; J3475; J3480